=== PATIENT | female | born 1955 | race Caucasian/White ===

== ENCOUNTER 2016-10-31 17:55 | Inpatient (IN) | payer OTHER ==
[~2016-10-31] VITALS: Ht 160 cm; Wt 93.2 kg
[2016-10-31] VITALS (7 sets, daily range): BP systolic 149–179; BP diastolic 83–105; PULSE 92–100; RESP 16–20; TEMP 98.3–98.8; O2SAT 91–94
[2016-10-31] MEDS ORDERED: SODIUM CHLORIDE 0.9% FLUSH 10 ML FLUSH IVF PRN ×2 (18:15→20:30)
[2016-10-31] MEDS ORDERED: SODIUM CHLORID 0.9% 500 ML INJ 500 ML IV ONE (18:15)
[2016-10-31] MEDS ORDERED: CLIN1CAP6 PO (18:17)
[2016-10-31] MEDS ORDERED: HYDR-3516 PO (18:17)
[2016-10-31] MEDS ORDERED: IBUP800T23 PO (18:17)
--- NOTE | 2016-10-31 18:21 | PD ---
HPI Chief Complaint: Respiratory Symptoms Time Seen by Provider: 18:17 Travel History International Travel<30 days: No Contact w/Intl Traveler<30days: No Traveled to known affect area: No History of Present Illness HPI 61-year-old female states that she had a tooth extracted to her left lower teeth 2 days ago. She was on a penicillin antibiotic but when she had shortness of breath they switched her to clindamycin. She states she never had a rash or other symptoms other than sweating. She states now she is having chest tightness and shortness of breath and so she elected to come in. She states that she's never had routine cardiac testing. She denies taking an aspirin. She states she has been taking ibuprofen for her tooth. She denies family history of heart disease. She denies recent travel history. Quality is tightness. Severity is currently none PFSH Past Medical History Medical History: Denies Significant Hx Hx Anticoagulant Therapy: No Diabetes: No Diminished Hearing: No Respiratory: No Tetanus Vaccination: Unknown ?: Not Past Surgical History Surgical History: No Previous Surgery Family History Family Myocardial Infarction: No Social History Alcohol Use: Yes (SOC) Tobacco Use: No (quit Saturday) Substance Use: No Allergies-Medications (Allergen,Severity, Reaction): Coded Allergies: Amoxicillin (Verified Allergy, Severe, 10/31/16) Reported Meds & Prescriptions Reported Meds & Active Scripts Active Reported Hydrocodone-Acetaminophen 5-325 mg Tab 1 Tab PO Q6H PRN Ibuprofen 800 Mg Tab 800 Mg PO Q8H PRN Clindamycin (Clindamycin HCl) 300 Mg Cap 300 Mg PO TID Review of Systems Except as stated in HPI: all other systems reviewed are Neg Physical Exam Narrative GENERAL: Well-nourished, well-developed patient. SKIN: Warm and dry. HEAD: Normocephalic and atraumatic. EYES: No injection or drainage. ENT: No nasal drainage noted. Left lower area of tooth extraction without active bleeding, swelling or signs of infection NECK: Supple, trachea midline. CARDIOVASCULAR: Regular rate and rhythm RESPIRATORY: Breath sounds equal bilaterally. No accessory muscle use. GASTROINTESTINAL: Abdomen soft, non-tender, nondistended. EXTREMITIES: No edema. NEUROLOGICAL: Awake and alert. Motor and sensory grossly within normal limits. Normal speech. Data Data Last Documented VS Vital Signs Date Time Temp Pulse Resp B/P Pulse Ox O2 Delivery O2 Flow Rate FiO2 4/5/17 18:19 16 94 Room Air 10/31/16 18:19 94 162/83 149/92 10/31/16 18:04 98.3 Orders Electrocardiogram (10/31/16 18:11) Ckmb (Isoenzyme) Profile (10/31/16 18:11) Complete Blood Count With Diff (10/31/16 18:11) Comprehensive Metabolic Panel (10/31/16 18:11) Magnesium (Mg) (10/31/16 18:11) Prothrombin Time / Inr (Pt) (10/31/16 18:11) Act Partial Throm Time (Ptt) (10/31/16 18:11) Troponin I (10/31/16 18:11) Lipase (10/31/16 18:11) Chest, Single Ap (10/31/16 18:11) Ecg Monitoring (10/31/16 18:11) Bilateral Bp Monitoring (10/31/16 18:11) Iv Access Insert/Monitor (10/31/16 18:11) Oximetry (10/31/16 18:11) Sodium Chloride 0.9% Flush (Ns Flush) (10/31/16 18:15) Sodium Chlorid 0.9% 500 Ml Inj (Ns 500 M (10/31/16 18:15) Ct Pulmonary Angiogram (10/31/16 18:) Labs Laboratory Tests Test 10/31/16 18:11 White Blood Count 11.5 TH/MM3 Red Blood Count 4.07 MIL/MM3 Hemoglobin 12.3 GM/DL Hematocrit 36.5 % Mean Corpuscular Volume 89.9 FL Mean Corpuscular Hemoglobin 30.3 PG Mean Corpuscular Hemoglobin 33.7 % Concent Red Cell Distribution Width 12.9 % Platelet Count 200 TH/MM3 Mean Platelet Volume 9.2 FL Neutrophils (%) (Auto) 82.4 % Lymphocytes (%) (Auto) 10.2 % Monocytes (%) (Auto) 6.4 % Eosinophils (%) (Auto) 0.5 % Basophils (%) (Auto) 0.5 % Neutrophils # (Auto) 9.4 TH/MM3 Lymphocytes # (Auto) 1.2 TH/MM3 Monocytes # (Auto) 0.7 TH/MM3 Eosinophils # (Auto) 0.1 TH/MM3 Basophils # (Auto) 0.1 TH/MM3 CBC Comment DIFF FINAL Differential Comment Prothrombin Time 10.7 SEC Prothromb Time International 1.0 RATIO Ratio Activated Partial 24.9 SEC Thromboplast Time Sodium Level 136 MEQ/L Potassium Level 3.7 MEQ/L Chloride Level 100 MEQ/L Carbon Dioxide Level 25.8 MEQ/L Anion Gap 10 MEQ/L Blood Urea Nitrogen 18 MG/DL Creatinine 0.94 MG/DL Estimat Glomerular Filtration 60 ML/MIN Rate Random Glucose 123 MG/DL Calcium Level 9.3 MG/DL Magnesium Level 2.0 MG/DL Total Bilirubin 0.4 MG/DL Aspartate Amino Transf 21 U/L (AST/SGOT) Alanine Aminotransferase 32 U/L (ALT/SGPT) Alkaline Phosphatase 86 U/L Total Creatine Kinase 55 U/L Troponin I LESS THAN 0.02 NG/ML Total Protein 7.7 GM/DL Albumin 3.4 GM/DL Lipase 108 U/L MDM Medical Decision Making Medical Screen Exam Complete: Yes Emergency Medical Condition: Yes Medical Record Reviewed: Yes (past history confirmed) Interpretation(s) EKG shows NSR, no ST elevation or depression, and no arrhythmias. No significant T-wave inversions. CBC & BMP Diagram 10/31/16 18:11 Differential Diagnosis NC, PE, gastritis, musculoskeletal Narrative Course Will check blood work, chest x-ray, CT chest and reevaluate Physician Communication Physician Communication dr ramos to follow imaging and reeval Colleen Sarkar MD Oct 31, 2016 18:20
[2016-10-31 18:29] LABS: AUTOMATED NEUTROPHIL # 9.4 TH/MM3 (1.8-7.7); BASOPHIL # 0.1 TH/MM3 (0-0.2); BASOPHIL % 0.5 % (0.0-2.0); EOSINOPHIL # 0.1 TH/MM3 (0-0.4); EOSINOPHIL % 0.5 % (0.0-4.0); HEMATOCRIT 36.5 % (35.0-46.0); HEMO FLAGS DIFF FINAL; LYMPH % 10.2 % (9.0-44.0); LYMPHOCYTE # 1.2 TH/MM3 (1.0-4.8); MEAN CELL VOLUME 89.9 FL (80.0-100.0); MEAN CORPUSCULAR HEMOGLOBIN 30.3 PG (27.0-34.0); MEAN CORPUSCULAR HGB CONC 33.7 % (32.0-36.0); MONO % 6.4 % (0.0-8.0); NEUT % 82.4 % (16.0-70.0); PLATELET COUNT 200 TH/MM3 (150-450); RED BLOOD COUNT 4.07 MIL/MM3 (4.00-5.30); RED CELL DISTRIBUTION WIDTH 12.9 % (11.6-17.2); WHITE BLOOD COUNT 11.5 TH/MM3 (4.0-11.0)
[2016-10-31 18:36] LABS: CHLORIDE 100 MEQ/L (98-107); POTASSIUM 3.7 MEQ/L (3.5-5.1); SODIUM (NA) 136 MEQ/L (136-145)
[2016-10-31 18:40] LABS: ANION GAP 10 MEQ/L (5-15); APTT (PATIENT) 24.9 SEC (24.3-30.1); BICARBONATE 25.8 MEQ/L (21.0-32.0); PROTHROMBIN TIME - PATIENT 10.7 SEC (9.8-11.6)
[2016-10-31 18:41] LABS: BLOOD UREA NITROGEN 18 MG/DL (7-18)
[2016-10-31 18:43] LABS: ALT (GPT) 32 U/L (10-53); AST (GOT) 21 U/L (15-37); GLOMERULAR FILTRATION RATE 60 ML/MIN (>89)
[2016-10-31 18:45] LABS: TOTAL BILIRUBIN ADULT 0.4 MG/DL (0.2-1.0)
[2016-10-31 18:46] LABS: ALKALINE PHOSPHATASE 86 U/L (45-117)
[2016-10-31 18:49] LABS: CREATINE KINASE 55 U/L (26-192)
--- NOTE | 2016-10-31 18:55 | RADHPO ---
EXAM DATE/TIME: 10/31/2016 18:23 [facility] COMPARISON: No previous studies available for comparison. INDICATIONS : Chest pain. MEDICAL HISTORY : None. SURGICAL HISTORY : None. ENCOUNTER: Initial ACUITY: 1 day PAIN SCORE: 5/10 LOCATION: Bilateral chest FINDINGS: There is a focal area of consolidation in the left hilar region. CT is pending for further evaluation . Right lung is clear. No significant effusion identified on plain film. No pneumothorax. Heart size upper limits normal. CONCLUSION: 1. Abnormal left perihilar opacity, possibly consolidation or mass. CT is pending for further evaluat ion. Nahid Caban MD on October 31, 2016 at 18:53 Board Certified Radiologist. This report was verified electronically.
[2016-10-31] MEDS ORDERED: IOHEXOL 350 MG/ML 10 ML VIAL (for RAD DIAG) IV ONE (19:12)
--- NOTE | 2016-10-31 19:29 | RADHPO ---
EXAM DATE/TIME: 10/31/2016 18:54 [facility] COMPARISON: No previous studies available for comparison. INDICATIONS : Shortness of breath. IV CONTRAST: 75 cc Omnipaque 350 (iohexol) IV RADIATION DOSE: 21.04 CTDIvol (mGy) MEDICAL HISTORY : None SURGICAL HISTORY : None. ENCOUNTER: Initial ACUITY: 1 day PAIN SCALE: 0/10 LOCATION: chest TECHNIQUE: Volumetric scanning of the chest was performed using a pulmonary embolism protocol MIP images were re constructed. Using automated exposure control and adjustment of the mA and/or kV according to patien t size, radiation dose was kept as low as reasonably achievable to obtain optimal diagnostic quality images. FINDINGS: There is an irregular lobulated and slightly spiculated mass in the left upper lobe apicoposterior se gment measuring 4.1 cm in diameter. There is contiguous left hilar and mediastinal adenopathy with a 2.9 cm anterior left hilar lymph node and a 2.5 cm prevascular lymph node. There is also a 2.5 cm sub carinal lymph node and a contralateral 1.8 cm lymph node at the inferior right hilum. There is a mode rate sized pericardial effusion measuring up to 2.1 cm in thickness. The findings are most characteristic of a primary lung malignancy, at least stage IIIB. There is patc hy airspace disease in the remainder of the left lung with some interlobular septal thickening which could represent localized lymphangitic spread of tumor. There is some ground glass opacity right midd le lobe as well. Trace bilateral pleural effusions. No acute findings in the upper abdomen. No filling defects in the pulmonary arteries to suggest pulmonary embolus. Probable sebaceous cyst an terior right chest wall. CONCLUSION: 1. Negative for pulmonary embolus. 2. 4.1 cm mass apicoposterior segment left upper lobe with extensive mediastinal and hilar adenopathy including contralateral hilar adenopathy as well as a moderate-sized pericardial effusion. Finding m ost characteristic of a primary lung malignancy, probably at least stage IIIB. Small bilateral pleura l effusions. Nahid Caban MD on October 31, 2016 at 19:21 Board Certified Radiologist. This report was verified electronically.
--- NOTE | 2016-10-31 20:12 | PD ---
Physical Exam Date Seen by Provider: Oct 31, 2016 Time Seen by Provider: 20:08 Narrative Accepted in transfer of care from Dr. Sarkar Data Data Last Documented VS Vital Signs Date Time Temp Pulse Resp B/P Pulse Ox O2 Delivery O2 Flow Rate FiO2 10/31/16 19:20 18 94 Room Air 10/31/16 19:20 98.8 92 165/105 Orders Electrocardiogram (10/31/16 18:11) Ckmb (Isoenzyme) Profile (10/31/16 18:11) Complete Blood Count With Diff (10/31/16 18:11) Comprehensive Metabolic Panel (10/31/16 18:11) Magnesium (Mg) (10/31/16 18:11) Prothrombin Time / Inr (Pt) (10/31/16 18:11) Act Partial Throm Time (Ptt) (10/31/16 18:11) Troponin I (10/31/16 18:11) Lipase (10/31/16 18:11) Chest, Single Ap (10/31/16 18:11) Ecg Monitoring (10/31/16 18:11) Bilateral Bp Monitoring (10/31/16 18:11) Iv Access Insert/Monitor (10/31/16 18:11) Oximetry (10/31/16 18:11) Sodium Chloride 0.9% Flush (Ns Flush) (10/31/16 18:15) Sodium Chlorid 0.9% 500 Ml Inj (Ns 500 M (10/31/16 18:15) Ct Pulmonary Angiogram (10/31/16 18:11) Iohexol 350 Inj (Omnipaque 350 Inj) (10/31/16 19:12) Vital Signs (Adult) CHAN.Q4H (10/31/16 20:16) Resp Oxygen Oliver C Titrat 1-4 L (10/31/16 ) Ondansetron Inj (Zofran Inj) (10/31/16 20:30) Acetaminophen (Tylenol) (10/31/16 20:30) Consult Pulmonology (10/31/16 ) Echo 2d Comp W/Dopp(Routine) (10/31/16 ) Consult Cardiothoracic Surgery (10/31/16 ) Admit Order (Ed Use Only) (10/31/16 ) ^ Saline Lock (10/31/16 20:21) Resp Oxygen Oliver C Titrat 1-4 L (10/31/16 ) ^ Notify Dr: Other (10/31/16 20:21) Sodium Chloride 0.9% Flush (Ns Flush) (10/31/16 21:00) Sodium Chloride 0.9% Flush (Ns Flush) (10/31/16 20:30) Albuterol-Ipratropium Neb (Duoneb Neb) (10/31/16 20:45) Labs Laboratory Tests Test 10/31/16 18:11 White Blood Count 11.5 TH/MM3 Red Blood Count 4.07 MIL/MM3 Hemoglobin 12.3 GM/DL Hematocrit 36.5 % Mean Corpuscular Volume 89.9 FL Mean Corpuscular Hemoglobin 30.3 PG Mean Corpuscular Hemoglobin 33.7 % Concent Red Cell Distribution Width 12.9 % Platelet Count 200 TH/MM3 Mean Platelet Volume 9.2 FL Neutrophils (%) (Auto) 82.4 % Lymphocytes (%) (Auto) 10.2 % Monocytes (%) (Auto) 6.4 % Eosinophils (%) (Auto) 0.5 % Basophils (%) (Auto) 0.5 % Neutrophils # (Auto) 9.4 TH/MM3 Lymphocytes # (Auto) 1.2 TH/MM3 Monocytes # (Auto) 0.7 TH/MM3 Eosinophils # (Auto) 0.1 TH/MM3 Basophils # (Auto) 0.1 TH/MM3 CBC Comment DIFF FINAL Differential Comment Prothrombin Time 10.7 SEC Prothromb Time International 1.0 RATIO Ratio Activated Partial 24.9 SEC Thromboplast Time Sodium Level 136 MEQ/L Potassium Level 3.7 MEQ/L Chloride Level 100 MEQ/L Carbon Dioxide Level 25.8 MEQ/L Anion Gap 10 MEQ/L Blood Urea Nitrogen 18 MG/DL Creatinine 0.94 MG/DL Estimat Glomerular Filtration 60 ML/MIN Rate Random Glucose 123 MG/DL Calcium Level 9.3 MG/DL Magnesium Level 2.0 MG/DL Total Bilirubin 0.4 MG/DL Aspartate Amino Transf 21 U/L (AST/SGOT) Alanine Aminotransferase 32 U/L (ALT/SGPT) Alkaline Phosphatase 86 U/L Total Creatine Kinase 55 U/L Troponin I LESS THAN 0.02 NG/ML Total Protein 7.7 GM/DL Albumin 3.4 GM/DL Lipase 108 U/L [facility] Medical Record Reviewed: Yes Supervised Visit with CONNIE: No Interpretation(s) CBC & BMP Diagram 10/31/16 18:11 Vital Signs Date Time Temp Pulse Resp B/P Pulse Ox O2 Delivery O2 Flow Rate FiO2 10/31/16 18:19 16 94 Room Air 10/31/16 18:19 94 16 162/83 94 Room Air 149/92 10/31/16 18:12 16 93 Room Air 10/31/16 18:04 98.3 100 18 179/101 94 Last Impressions Chest X-Ray 10/31/161810 Signed Impressions: Service Date/Time: Monday, October 31, 2016 18:23 - CONCLUSION: 1. Abnormal left perihilar opacity, possibly consolidation or mass. CT is pending for further evaluation. Nahid Caban MD CT Angiography 10/31/161810 Signed Impressions: Service Date/Time: Monday, October 31, 2016 18:54 - CONCLUSION: 1. Negative for pulmonary embolus. 2. 4.1 cm mass apicoposterior segment left upper lobe with extensive mediastinal and hilar adenopathy including contralateral hilar adenopathy as well as a moderate-sized pericardial effusion. Finding most characteristic of a primary lung malignancy, probably at least stage IIIB. Small bilateral pleural effusions. Nahid Caban MD Troponin I: Less than 0.02, not elevated EKG normal sinus rhythm rate [address] elevation or injury pattern change or ectopy noted Differential Diagnosis please refer to Dr Sarkar's dictation; Accepted in transfer of care from Dr. Sarkar Narrative Course Accepted in transfer of care from Dr. Sarkar for patient admission; patient with at bedside informed of imaging results and recommendation for admission for further evaluation of lung mass with concern for mediastinal lymphadenopathy and moderate pericardial effusion Physician Communication Physician Communication discussed with Dr Saenz --will admit to [facility] service to [facility] Diagnosis Primary Impression: Dyspnea Qualified Code: R06.02 - Shortness of breath Additional Impressions: Lung mass Pericardial effusion Admitting Information Admitting Physician Requests: Admit Mirela Lr MD Oct 31, 2016 20:11
[2016-10-31] MEDS ORDERED: RESP: ALBUTEROL 2.5 MG/IPRATROPIUM 0.5 MG NEB (PRN) NEB (20:45)
[2016-10-31] MEDS: ACETAMINOPHEN 325 MG TAB PO PRN (21:12)
[2016-10-31] MEDS: SODIUM CHLORIDE 0.9% FLUSH 10 ML FLUSH IV FLUSH SCH (21:13)
[2016-11-01] VITALS (14 sets, daily range): BP systolic 103–161; BP diastolic 60–94; PULSE 80–96; RESP 16–22; TEMP 96.2–98.2; O2SAT 90–94
[2016-11-01] MEDS: ACETAMINOPHEN 325 MG TAB PO PRN ×5 (03:18→23:12)
--- NOTE | 2016-11-01 04:01 | HHI.HP ---
[facility] Service [facility] Primary Care Physician No Primary Care Physician Admission Diagnosis Dyspnea; Lung Mass; pericardial effusion Diagnoses: (1) Lung mass (2) Pericardial effusion (3) Dyspnea (4) Tobacco abuse Chief Complaint: Shortness of breath Travel History International Travel<30 Days: No Contact w/Intl Traveler <30 Da: No Traveled to Known Affected Are: No History of Present Illness Mrs. Webster is a 61-year-old female with no significant past medical history who presented to the emergency room on 10/31/2016 for evaluation of worsening shortness of breath. The patient is seen in the CDU. She states that she is had progressively worsening shortness of breath and thought this was related to an allergic reaction to amoxicillin that she cannot on Saturday following tooth extraction. In August, she thought she had an ear infection; got amoxicillin and it didn' t clear; then zpak and didn't clear; then dentist; tooth pulled Saturday - back on Amoxicillin. She denies any night sweats, chills, fever, or weight loss. She denies any family history of significant illness. She reports that her shortness of breath is worsened with exertion. She states she's been smoking for many years 2 packs per day. She states she quit smoking on Saturday. Review of Systems Except as stated in HPI: all other systems reviewed are Neg Past Family Social History Past Medical History denies . Past Surgical History denies . Reported Medications Reported Meds & Active Scripts Active Reported Hydrocodone-Acetaminophen 5-325 mg Tab 1 Tab PO Q6H PRN Ibuprofen 800 Mg Tab 800 Mg PO Q8H PRN Clindamycin (Clindamycin HCl) 300 Mg Cap 300 Mg PO TID . Allergies: Coded Allergies: Amoxicillin (Verified Allergy, Severe, 10/31/16) Active Ordered Medications Current Medications Sodium Chloride 2 ml 2 ml UNSCH PRN IVF FLUSH AFTER USING IV ACCESS; Start 10/31 at 18:15; Stop 10/31/16 at 20:31; Status DC Sodium Chloride (NS 500 ml Inj) 500 ml @ 500 mls/hr ONCE ONCE IV Last administered on 10/31/16t 18:26; Start 10/31/16 at 18:15; Stop 10/31/16 at 19:14; Status DC Iohexol (Omnipaque 350 Inj) 75 ml STK-MED ONCE IV Last administered on 19:12; Start 10/31/16 at 19:12; Stop 10/31/16 at 19:13; Status DC Ondansetron HCl (Zofran Inj) 4 mg Q8HR PRN IV PUSH NAUSEA; Start 10/31/16 at 20: 30 Acetaminophen (Tylenol) 650 mg Q4H PRN PO FEVER/PAIN Last administered on 03:18; Start 10/31/16 at 20:30 Albuterol/ Ipratropium (Duoneb Neb) 1 ampule Q4HR NEB PRN NEB SHORTNESS OF BREATH; Start 10/31/16 at 20:45 Sodium Chloride (NS Flush) 2 ml BID IV FLUSH Last administered on 10/31/16 21: 13; Start 10/31/16 at 21:00 Sodium Chloride (NS Flush) 2 ml UNSCH PRN IVF FLUSH AFTER USING IV ACCESS; Start 10/31/16 at 20:30 . Family History denies any significant family medical history . Social History Tobacco: smokes 2 ppd for many years - quit Saturday Alcohol: social . Physical Exam Vital Signs Vital Signs Date Time Temp Pulse Resp B/P Pulse Ox O2 Delivery O2 Flow Rate FiO2 11/01/16 00:00 98.2 96 20 135/85 91 10/31/16 22:38 98.7 92 18 164/84 94 Room Air 10/31/16 21:15 93 Room Air 10/31/16 21:09 91 Nasal Cannula 2 10/31/16 21:00 92 20 161/88 93 Room Air 10/31/16 19:20 18 94 Room Air 10/31/16 19:20 98.8 92 18 165/105 94 Room Air 10/31/16 18:19 16 94 Room Air 10/31/16 18:19 94 16 162/83 94 Room Air 149/92 10/31/16 18:12 16 93 Room Air 10/31/16 18:04 98.3 100 18 179/101 94 Physical Exam GENERAL: This is a well-nourished, well-developed patient, in no apparent distress. SKIN: No rashes, ecchymoses or lesions. Cool and dry. HEAD: Atraumatic. Normocephalic. EYES: No scleral icterus. No injection or drainage. ENT: Nose without bleeding, purulent drainage. NECK: Trachea midline. No JVD or lymphadenopathy. CARDIOVASCULAR: Regular rate and rhythm without murmurs, gallops, or rubs. RESPIRATORY: Diminished air entry- right lung base. No wheezes, rales, or rhonchi. GASTROINTESTINAL: Abdomen soft, non-tender, nondistended. No guarding. MUSCULOSKELETAL: Extremities without clubbing, cyanosis, or edema. No calf tenderness. NEUROLOGICAL: Awake and alert. Motor and sensory grossly within normal limits. Normal speech. . Laboratory Laboratory Tests Test 10/31/16 18:11 White Blood Count 11.5 Red Blood Count 4.07 Hemoglobin 12.3 Hematocrit 36.5 Mean Corpuscular Volume 89.9 Mean Corpuscular Hemoglobin 30.3 Mean Corpuscular Hemoglobin 33.7 Concent Red Cell Distribution Width 12.9 Platelet Count 200 Mean Platelet Volume 9.2 Neutrophils (%) (Auto) 82.4 Lymphocytes (%) (Auto) 10.2 Monocytes (%) (Auto) 6.4 Eosinophils (%) (Auto) 0.5 Basophils (%) (Auto) 0.5 Neutrophils # (Auto) 9.4 Lymphocytes # (Auto) 1.2 Monocytes # (Auto) 0.7 Eosinophils # (Auto) 0.1 Basophils # (Auto) 0.1 CBC Comment DIFF FINAL Differential Comment Prothrombin Time 10.7 Prothromb Time International 1.0 Ratio Activated Partial 24.9 Thromboplast Time Sodium Level 136 Potassium Level 3.7 Chloride Level 100 Carbon Dioxide Level 25.8 Anion Gap 10 Blood Urea Nitrogen 18 Creatinine 0.94 Estimat Glomerular Filtration 60 Rate Random Glucose 123 Calcium Level 9.3 Magnesium Level 2.0 Total Bilirubin 0.4 Aspartate Amino Transf 21 (AST/SGOT) Alanine Aminotransferase 32 (ALT/SGPT) Alkaline Phosphatase 86 Total Creatine Kinase 55 Troponin I LESS THAN 0.02 Total Protein 7.7 Albumin 3.4 Lipase 108 Result Diagram: 10/31/16181010/31/161810 Imaging Last Impressions Chest X-Ray 10/31/161810 Signed Impressions: Service Date/Time: Monday, October 31, 2016 18:23 - CONCLUSION: 1. Abnormal left perihilar opacity, possibly consolidation or mass. CT is pending for further evaluation. Nahid Caban MD CT Angiography 10/31/161810 Signed Impressions: Service Date/Time: Monday, October 31, 2016 18:54 - CONCLUSION: 1. Negative for pulmonary embolus. 2. 4.1 cm mass apicoposterior segment left upper lobe with extensive mediastinal and hilar adenopathy including contralateral hilar adenopathy as well as a moderate-sized pericardial effusion. Finding most characteristic of a primary lung malignancy, probably at least stage IIIB. Small bilateral pleural effusions. Nahid Caban MD . Assessment and Plan Problem List: (1) Lung mass ICD Code: R91.8 Status: Acute (2) Pericardial effusion ICD Code: I31.3 Status: Acute (3) Dyspnea ICD Code: R06.00 Status: Acute (4) Tobacco abuse ICD Code: Z72.0 Status: Chronic Assessment and Plan Ms. Webster is a 61 y/o female who presented to the ER on 10/31/16 for evaluation of shortness of breath who was found to have a left lung mass and pericardial effusion. Dyspnea r/t Lung Mass - CT pulmonary angiogram negative for PE shows 4.1 cm mass apicoposterior segment left upper lobe with extensive mediastinal and hilar adenopathy including contralateral hilar adenopathy. Small bilateral pleural effusions. - consult pulmonology/oncology - will need tissue diagnosis - Duonebs q4h PRN shortness of breath Pericardial Effusion - found on CT pulmonary angiogram: moderate-sized pericardial effusion - check echocardiogram to evaluate cardiac structure and function - consult cardiothoracic surgery for treatment recommendations Anxiety related to findings of lung mass - Xanax 0.25 mg q8h PRN anxiety Long history of tobacco abuse - patient states she quit smoking on Saturday - counselled regarding cessation - offered nicotine patch - patient refused DVT prophylaxis - SCDs Written by Karena Malcolm, acting as scribe for Dr. Abbasi on 11/01/16 at 04:00. .patient was seen and examined today. 61 y/o female - chronic smoker - who presented to ER with sob. found to have a lung mass and moderate-sized pericardial effusion. will consult pulmonary, oncology and CT surgery for further recommendations. Discussed Condition With ER physician, RN, and patient . Physician Certification 2 Midnight Certification Type: Admission for Inpatient Services Order for Inpatient Services The services are ordered in accordance with Medicare regulations or non- Medicare payer requirements, as applicable. In the case of services not specified as inpatient-only, they are appropriately provided as inpatient services in accordance with the 2-midnight benchmark. Estimated LOS (days): 3 days is the estimated time the patient will need to remain in the hospital, assuming treatment plan goals are met and no additional complications. Post-Hospital Plan: Home Problem Qualifiers (1) Dyspnea: Qualified Code: R06.02 - Shortness of breath Karena Malcolm Nov 01, 2016 04:01 Barbi Abbasi MD Nov 01, 2016 05:01
[2016-11-01] MEDS: ALPRAZolam 0.25 MG TAB PO PRN ×3 (04:15→19:47)
--- NOTE | 2016-11-01 07:49 | HHI.PR ---
Subjective Remarks Breathing is not worse overnight. No complaints of chest pain or shortness of breath. She states that she has left lower jaw pain due to a tooth that was pulled by her dentist 3 days ago. She was placed on clindamycin and taking Tylenol for the pain. She does smoke 2 packs of cigarettes over the past 40 years Objective Vitals Vital Signs Date Time Temp Pulse Resp B/P Pulse Ox O2 Delivery O2 Flow Rate FiO2 11/01/16 04:25 20 11/01/16 04:00 98.0 94 20 161/94 93 11/01/16 00:00 98.2 96 20 135/85 91 10/31/16 22:38 98.7 92 18 164/84 94 Room Air 10/31/16 21:15 93 Room Air 10/31/16 21:09 91 Nasal Cannula 2 10/31/16 21:00 92 20 161/88 93 Room Air 10/31/16 19:20 18 94 Room Air 10/31/16 19:20 98.8 92 18 165/105 94 Room Air 10/31/16 18:19 16 94 Room Air 10/31/16 18:19 94 16 162/83 94 Room Air 149/92 10/31/16 18:12 16 93 Room Air 10/31/16 18:04 98.3 100 18 179/101 94 I/O 10/31/16 10/31/16 10/31/16 11/01/16 11/01/16 11/01/16 07:00 15:00 23:00 07:00 15:00 23:00 Intake Total 500 ml Balance 500 ml Intake IV Total 500 ml # Voids 2 1 Result Diagram: 10/31/16 1811 10/31/16 1811 Objective Remarks GENERAL: This is a well-nourished, well-developed patient, in no apparent distress. CARDIOVASCULAR: Regular rate and rhythm RESPIRATORY: Relatively clear to auscultation bilaterally with mildly diminished breath sounds bilateral bases GASTROINTESTINAL: Abdomen soft, non-tender,nondistended. Normal active bowel sounds MUSCULOSKELETAL: Extremities without clubbing, cyanosis, or edema. NEURO: Alert & Oriented x4 to person, place, time, situation. Moves all ext x4 A/P Problem List: (1) Lung mass ICD Code: R91.8 Status: Acute (2) Pericardial effusion ICD Code: I31.3 Status: Acute (3) Dyspnea ICD Code: R06.00 Status: Acute (4) Tobacco abuse ICD Code: Z72.0 Status: Chronic Assessment and Plan 61 y/o female who presented to the ER on 10/31/16 for evaluation of shortness of breath who was found to have a left lung mass and pericardial effusion. Dyspnea with left Lung Mass suspicious for malignancy - CT pulmonary angiogram negative for PE shows 4.1 cm mass apicoposterior segment left upper lobe with extensive mediastinal and hilar adenopathy including contralateral hilar adenopathy. Small bilateral pleural effusions. - consult pulmonology/oncology for further recommendations- will need tissue diagnosis, consider consult for CT-guided biopsy of the mass - Duonebs q4h PRN shortness of breath Oxygen support for hypoxia, 2 L via nasal cannula Pericardial Effusion - found on CT pulmonary angiogram: moderate-sized pericardial effusion likely due to malignancy - check echocardiogram to evaluate cardiac structure and function - consult cardiothoracic surgery for treatment recommendations Anxiety related to findings of lung mass - Started Xanax 0.25 mg q8h PRN anxiety Long history of tobacco abuse, smoked 2 packs of cigars her past 40 years - patient states she quit smoking on Saturday - counselled regarding cessation - offered nicotine patch - patient declined Recent tooth extractioncontinue pain medication continue outpatient home clindamycin prescribed by dentist DVT prophylaxis - SCDs, will initiate Lovenox after biopsy. .patient was seen and examined today. 61 y/o female - chronic smoker - who presented to ER with sob. found to have a lung mass and moderate-sized pericardial effusion. will consult pulmonary, oncology and CT surgery for further recommendations. Discharge Planning Home when clinically stable. Problem Qualifiers (1) Dyspnea: Qualified Code: R06.02 - Shortness of breath Christine Estrada MD Nov 01, 2016 07:49
[2016-11-01] MEDS ORDERED: DOCUSATE SODIUM 50 MG/SENNA 8.6 MG TAB PO PRN (08:00)
[2016-11-01] MEDS ORDERED: ACETAMINOPHEN/HYDROcodone 325 MG/5 MG TAB PO PRN (08:00)
[2016-11-01] MEDS ORDERED: ZOLPIDEM TARTRATE 5 MG TAB PO PRN (08:00)
[2016-11-01] MEDS ORDERED: NALOXONE HCL 0.4 MG/ML AMP IV PRN (08:00)
[2016-11-01] MEDS ORDERED: ACETAMINOPHEN 325 MG TAB PO PRN (08:00)
[2016-11-01] MEDS ORDERED: ACETAMINOPHEN/HYDROcodone 325 MG/7.5 MG TAB PO PRN (08:00)
[2016-11-01] MEDS ORDERED: MAGNESIUM HYDROXIDE SUSP 30 ML CUP PO PRN (08:00)
[2016-11-01] MEDS: SODIUM CHLORIDE 0.9% FLUSH 10 ML FLUSH IV FLUSH SCH ×2 (08:22→19:55)
[2016-11-01] MEDS: CLINDAMYCIN 150 MG CAP PO SCH ×3 (08:22→19:48)
--- NOTE | 2016-11-01 13:01 | EKG ---
Date Performed: 10/31/2016 Time Performed: 17:58:22 PTAGE: 61 years EKG: Sinus rhythm Normal ECG NO PREVIOUS TRACING DOCTOR: Agustín Patel Interpretating Date/Time 11/01/2016 12:59:45
[2016-11-01] MEDS ORDERED: LIDOCAINE 1%/EPINEPHrine 1:100,000 SOLN 20 ML VIAL ONE (13:08)
[2016-11-01] MEDS ORDERED: MIDAZOLAM HCL 5 MG/5 ML VIAL ONE (13:53)
[2016-11-01] MEDS ORDERED: fentaNYL CITRATE 250 MCG/5 ML AMP ONE (13:54)
[2016-11-01] MEDS ORDERED: oxyCODONE/ACETAMINOPHEN 5 MG/325 MG TAB PO PRN (14:30)
--- NOTE | 2016-11-01 14:36 | PD.RAD ---
Post Procedure Progress Note Pre Procedure Diagnosis: (1) Lung mass Post Procedure Diagnosis: (1) Lung mass Procedure Date: Nov 01, 2016 Supervising Radiologist: Clint Ojeda Anesthesia: Local, Conscious Sedation Plan of Activity Patient to Unit: [facility] Patient Condition: Good Additional Comments: Pt post left lung biopsy 3 core samples taken Follow up cxr pending See PACS Report for procedural detail/treatment Clint Ojeda MD Nov 01, 2016 14:36
--- NOTE | 2016-11-01 15:56 | RADRPT ---
EXAM DATE/TIME: 11/01/2016 13:59 [facility] COMPARISON: CT PULMONARY ANGIOGRAM, October 31, 2016, 18:54. INDICATIONS : Left lung mass. SEDATION TIME: 30 minutes BIOPSY SITE: Left Lung MEDICATION(S): 1.) 4 mg midazolam (Versed) IV 2.) 200 mcg fentanyl (Sublimaze) IV DEVICE(S): 1.) 20 gauge Temno core biopsy needle 2.) 18 gauge Seth blunt needle MEDICAL HISTORY : None. SURGICAL HISTORY : None. ENCOUNTER: Initial ACUITY: 1 day PAIN SCORE: 0/10 LOCATION: Left chest A total of three core specimen(s) were obtained and sent to the laboratory for pathologic evaluation. PROCEDURE: 1. CT guided lung biopsy. 2. Conscious sedation with continuous EKG and oximetry monitoring. 3. EKG and oximetry remained stable throughout the procedure. Prior to the procedure informed consent was obtained. Any appropriate prior imaging studies were rev iewed. Using automated exposure control and adjustment of the mA and/or kV according to patient size, radiation dose was kept as low as reasonably achievable to obtain optimal diagnostic quality images. The site was prepped in a sterile fashion. Full sterile technique was used, including cap, mask, ayaka rile gloves and gown and a large sterile sheet. Hand hygiene and 2% chlorhexidine and/or betadine/al cohol prep was utilized per protocol for cutaneous antisepsis. The skin and subcutaneous tissues wer e infiltrated with local anesthetic solution. With CT guidance the previously identified target was localized. After the needle was advanced to the skin of the back and down into the patient's left upper lung mass. A 20 gauge Temno biopsy needle wa s advanced through the Seth cannula. A total of 3 core biopsies were obtained. Adequate hemostasis was obtained with compression at the puncture site. Follow-up CT scan reveals no pneumothorax. Conscious sedation was performed with the prescribed dosages and duration as above in the presence of an independent trained radiology nurse to assist in the monitoring of the patient. EKG and oximetry remained stable throughout the procedure. The patient tolerated the procedure well and there were no complications. The patient was sent to Radiology Outpatient Unit in stable condition. CONCLUSION: Uncomplicated CT guided biopsy. Clint Ojeda MD on November 01, 2016 at 15:54 Board Certified Radiologist. This report was verified electronically.
--- NOTE | 2016-11-01 18:53 | RADRPT ---
EXAM DATE/TIME: 11/01/2016 18:11 [facility] COMPARISON: CT PULMONARY ANGIOGRAM, October 31, 2016, 18:54. CHEST SINGLE AP, October 31, 2016, 18:23. INDICATIONS : Shortness of breath. MEDICAL HISTORY : None. SURGICAL HISTORY : None. ENCOUNTER: Subsequent ACUITY: 3 days PAIN SCORE: 5/10 LOCATION: Bilateral chest FINDINGS: There is fullness of the left suprahilar area with prominence of the mediastinum corresponding to kno wn mass and adenopathy seen on the patient's prior chest CT. There is no appreciable change. CONCLUSION: No acute process and not changed. Austen Montenegro MD on November 01, 2016 at 18:49 Board Certified Radiologist. This report was verified electronically.
--- NOTE | 2016-11-01 19:01 | EC ---
Study Study Date:11/01/2016 STUDY CONCLUSIONS SUMMARY - Left ventricle: The cavity size was normal. Wall thickness was at the upper limits of normal. Systolic function was normal. The estimated ejection fraction was in the range of 55% to 60%. Wall motion was normal; there were no regional wall motion abnormalities. Doppler parameters are consistent with abnormal left ventricular relaxation (grade 1 diastolic dysfunction). - Pericardium, extracardiac: A moderate, partially loculated pericardial effusion was identified circumferential to the heart. There wasmildright atrial and possible right ventricularchamber collapse. Respirophasic change in stroke volume was normal. The possibility of hemodynamic compromise cannot be excluded based on the possible right sided chamber collapse (pre-tamponade physiology). Clinical correlation is recommended. If LV function is below 40, please consider prescribing an ACEI or ARB or document rationale for non-use. PROCEDURE DATA STUDY STATUS: Elective. Procedure: Transthoracic echocardiography. Image quality was good. Scanning was performed from the parasternal, apical, and subcostal acoustic windows. Study completion: The patient tolerated the procedure well. Transthoracic echocardiography. M-mode, complete 2D, complete spectral Doppler, and color Doppler. Height: Height: 63in. Weight: Weight: 199.6lb. Body mass index: BMI: 35.4kg/m^2. Body surface area: BSA: 1.93m^2. Patient status: Inpatient. CARDIAC ANATOMY LEFT VENTRICLE: The cavity size was normal. Wall thickness was at the upper limits of normal. Systolic function was normal. The estimated ejection fraction was in the range of 55% to 60%. Wall motion was normal; there were no regional wall motion abnormalities. Doppler parameters are consistent with abnormal left ventricular relaxation (grade 1 diastolic dysfunction). AORTIC VALVE: Trileaflet; normal thickness leaflets. Doppler: Transvalvular velocity was within the normal range. There was no stenosis. No regurgitation. AORTA: Aortic root: The aortic root was normal in size. MITRAL VALVE: Structurally normal valve. Doppler: Transvalvular velocity was within the normal range. There was no evidence for stenosis. Trace to mild regurgitation. Valve area by pressure half-time: 4.07cm^2. Indexed valve area by pressure half-time: 2.11cm^2/m^2. LEFT ATRIUM: The atrium was normal in size. RIGHT VENTRICLE: The cavity size was normal. Wall thickness was normal. PULMONIC VALVE: Doppler: Transvalvular velocity was within the normal range. There was no evidence for stenosis. No regurgitation. TRICUSPID VALVE: Structurally normal valve. Doppler: Transvalvular velocity was within the normal range. Trace to mild regurgitation. PULMONARY ARTERY: The main pulmonary artery was normal-sized. Systolic pressure was within the normal range. RIGHT ATRIUM: The atrium was normal in size. PERICARDIUM: A moderate, partially loculated pericardial effusion was identified circumferential to the heart. Doppler: There was mild right atrial and possible right ventricular chamber collapse. Respirophasic change in stroke volume was normal. The possibility of hemodynamic compromise cannot be excluded based on the possible right sided chamber collapse (pre-tamponade physiology). Clinical correlation is recommended. SYSTEMIC VEINS: Inferior vena cava: The vessel was mildly dilated; the respirophasic diameter changes were in the normal range (= 50%). Patient weight: 199.6lb _Ejection fraction:_ 65-75% _Fractional shortening:_ 32% up to 5Kg 5-11.5Kg 11.6-22.9Kg 23-45Kg 45-57Kg Aortic Root 7-13 <17 13-22 17-27 17-27 LA diam 6-13 <23 24-38 33-47 37-40 RVID 10-17 7-15 7-15 7-18 8-17 LVIDd 12-22 <32 24-38 33-47 37-40 LVPW 2-4 3-6 5-7 6-8 7-8 IVS 2-4 3-6 5-7 6-8 7-8 BASIC MEASUREMENTS ADULT NORMAL Left ventricle LV internal dimension, ED, chordal *38.7 mm 43-52 level, PLAX LV internal dimension, ES, chordal 24.8 mm 23-38 level, PLAX Fractional shortening, chordal level, 36 % >29 PLAX LV posterior wall thickness, ED 12.1 mm IVS/LVPW ratio, ED 1.01 <1.3 Ventricular septum Septal thickness, ED 12.2 mm Left atrium Anterior-posterior dimension 31 mm Anterior-posterior dimension index 1.61 cm/m^2 <2.2 Right ventricle RV internal dimension, ED, PLAX 21.8 mm 19-38 DOPPLER MEASUREMENTS ADULT NORMAL Main pulmonary artery Pressure, S 27 mm Hg =30 Aortic valve Peak velocity, S 115 cm/s Mitral valve Peak E-wave velocity 57.3 cm/s Peak A-wave velocity 73.5 cm/s Pressure half-time 54 ms Peak E/A ratio 0.8 Valve area, pressure half-time 4.07 cm^2 Valve area index, pressure half-time 2.11 cm^2/m^2 Tricuspid valve Regurgitant peak velocity 227 cm/s Peak RV-RA gradient, S 21 mm Hg Maximal regurgitant velocity 227 cm/s Systemic veins Estimated CVP 10 mm Hg Right ventricle RV pressure, S *31 mm Hg <30 Pulmonic valve Peak velocity, S 100 cm/s LEGEND: Mean values are shown as u=mean value. Asterisk (*) riggs values outside specified normal range. Prepared and signed by Robin Horner [id number]
[2016-11-01] MEDS ORDERED: DIATRIZOATE MEGLUM/DIATRIZOATE SOD 9 ML CUP PO ONE (19:45)
[2016-11-01] MEDS ORDERED: GADODIAMIDE PF 287 MG/ML 5 ML VIAL (for RAD MRI) IV ONE (22:11)
[2016-11-01] MEDS ORDERED: IOHEXOL 350 MG/ML 10 ML VIAL (for RAD DIAG) IV ONE (22:36)
--- NOTE | 2016-11-01 22:40 | RADRPT ---
EXAM DATE/TIME: 11/01/2016 22:01 [facility] COMPARISON: No previous studies available for comparison. INDICATIONS : Metastatic disease. CONTRAST: 18 cc Omniscan (gadodiamide) IV MEDICAL HISTORY : Carcinoma, lung. SURGICAL HISTORY : Left lung biopsy. Dental. ENCOUNTER: Subsequent ACUITY: 2 day PAIN SCORE: 3/10 LOCATION: cranial TECHNIQUE: Multiplanar, multisequence MRI of the brain was performed both prior to and following the administrat ion of paramagnetic contrast. FINDINGS: There is no evidence for intracranial hemorrhage, mass effect, mass lesions, edema, or extra-axial fl uid collections. The ventricles are normal size for the patient's age. There are no signs of acute infarction for technique. The diffusion portion, and postcontrast portion are unremarkable. CONCLUSION: Unremarkable study. Austen Montenegro MD on November 01, 2016 at 22:36 Board Certified Radiologist. This report was verified electronically.
--- NOTE | 2016-11-01 22:45 | RADRPT ---
EXAM DATE/TIME: 11/01/2016 22:28 [facility] COMPARISON: No previous studies available for comparison. INDICATIONS : Abnormal chest scan, lung cancer staging. IV CONTRAST: 80 cc Omnipaque 350 (iohexol) IV ORAL CONTRAST: Prescribed oral contrast ingested. RADIATION DOSE: 16.13 CTDIvol (mGy) MEDICAL HISTORY : Carcinoma, lung. SURGICAL HISTORY : None. ENCOUNTER: Initial ACUITY: 2 days PAIN SCALE: 0/10 LOCATION: abdomen TECHNIQUE: Volumetric scanning of the abdomen and pelvis was performed. Using automated exposure control and ad justment of the mA and/or kV according to patient size, radiation dose was kept as low as reasonably achievable to obtain optimal diagnostic quality images. FINDINGS: CT Abdomen: The liver, spleen, pancreas, kidneys, adrenals are unremarkable. There is no evidence for any appreciable free fluid, or bowel obstruction. There is slight ascites and a small right pleural effusion. There is a large pericardial effusion with thickness of 2.3 cm. Possible gallstones are pr esent in the gallbladder. There are lymph nodes in the upper abdomen at the level of the rishabh hepati s measuring 2.2 cm and 2.1 cm nonspecific. There are smaller lymph nodes surrounding with tiny benign -appearing lymph nodes in the retroperitoneum. CT pelvis: There is no evidence for mass, abscess formation, or any significant adenopathy within the pelvis. There are scattered diverticuli mainly in the sigmoid colon without definite signs of divert iculitis. CONCLUSION: 1. There are lymph nodes in the upper abdomen at the level of the rishabh hepatis nonspecific in regard s to melignancy disease. 2. Large pericardial effusion. 3. Small right pleural effusion and slight ascites. Austen Montenegro MD on November 01, 2016 at 22:39 Board Certified Radiologist. This report was verified electronically.
[2016-11-02] VITALS (15 sets, daily range): BP systolic 107–160; BP diastolic 64–100; PULSE 73–114; RESP 16–22; TEMP 96.5–98.8; O2SAT 92–96
[2016-11-02] MEDS: ACETAMINOPHEN 325 MG TAB PO PRN ×3 (03:53→12:08)
--- NOTE | 2016-11-02 07:49 | MB ---
cc: SVITLANA CANLAES DATE OF CONSULTATION 11/01/2016 REASON FOR CONSULTATION This is a 61-year-old patient who presented to the emergency room with evaluation for shortness of breath. She says she has been basically getting worse for the past few weeks. She was originally treated for what she thought was an ear infection back in August. She was treated with amoxicillin and then Zithromax and then found to have a toothache which was pulled back on Saturday. She was put back on amoxicillin and then felt like she had some type of reaction to the amoxicillin. She felt flushed, dizzy and very itchy. She says her shortness of breath was worsened with exertion. She is quite a heavy smoker and has been smoking for about 40 years. She underwent CTA of the chest to rule out a PE which was negative, however they did find a 4.1 cm irregular lobulated spiculated mass left upper lobe, also with some left hilar mediastinal adenopathy. There was an enlarged lymph node in the prevascular lymph node and also the subcarinal lymph node and a contralateral lymph node at the inferior right hilum. Concern for primary lung malignancy at least stage IIIB per the report. She was also found to have a moderate sized pericardial effusion. We were consulted to evaluate secondary to the effusion. She has currently been scheduled for CT-guided biopsy of the lung mass. She is also pending a 2-D echocardiogram to evaluate the pericardial effusion further. She is currently hemodynamically stable. PAST MEDICAL HISTORY Her past medical history is significant for: 1. Dyspnea 2. Tobacco abuse 3. Recent tooth extraction ALLERGIES Include AMOXICILLIN. MEDICATIONS None FAMILY HISTORY AND SOCIAL HISTORY The patient , smokes two packs a day for 40 years. She says she quit on Saturday. Occasional alcohol. REVIEW OF SYSTEMS As per the above in HPI, otherwise 12 systems unremarkable. PHYSICAL EXAM On exam blood pressure of 130/80, heart rate 96, respiratory rate of 20, temperature max 98.2, O2 sat 91 on room air. GENERAL: Patient is awake, alert, well-nourished, well-developed in no apparent distress. HEAD: Normocephalic, atraumatic. EARS, NOSE, AND THROAT: Oral mucosa pink and moist. NECK: Supple. No JVD. HEART: S1 and S2. No rubs, murmurs, gallops. LUNGS: Diminished in the right lower lobe. No wheezes, rales or rhonchi. ABDOMEN: Soft, obese and nontender. No masses or organomegaly. EXTREMITIES: No cyanosis, clubbing or edema. LAB WORK Hemoglobin 12, hematocrit 36, white cell count 11.5, platelet count 200. Sodium 136, potassium 3.7, BUN of 18, creatinine 0.94, troponin is negative, INR 1.0. Radiological exams as above in the HPI. IMPRESSION This is a 61-year-old female with worsening dyspnea since August with treatment for questionable ear ache which was then found to be a toothache where the tooth was extracted, treated with amoxicillin which she thought she had a reaction however, the CT showed a 4.1 cm right lung mass for which she is to undergo CT-guided biopsy. Await the 2-D echo to evaluate the pericardial effusion more definitively. Currently, she is not hemodynamically unstable, however if the CT-guided biopsy showed malignancy, there is concern for possible metastasis. This was also discussed with the patient. She is also pending oncology evaluation and pending the results of her 2-D echo and a lung biopsy. Further plan pending. Dictated by CHERELLE Cleaning MD KADEEM Chinchilla/NATALYA /4:17 PM /7:41 AM
[2016-11-02] MEDS ORDERED: VANCOMYCIN INJ 1,000 MG in SODIUM CHLOR 0.9% 250 ML INJ 250 ML IV SCH (08:15)
[2016-11-02] MEDS: ALPRAZolam 0.25 MG TAB PO PRN ×2 (08:26→20:46)
[2016-11-02] MEDS: CLINDAMYCIN 150 MG CAP PO SCH ×2 (08:26→12:07)
[2016-11-02] MEDS: SODIUM CHLORIDE 0.9% FLUSH 10 ML FLUSH IV FLUSH SCH ×2 (08:27→20:21)
[2016-11-02] MEDS ORDERED: MIDAZOLAM HCL 5 MG/5 ML VIAL ONE (09:25)
[2016-11-02] MEDS ORDERED: fentaNYL CITRATE 250 MCG/5 ML AMP ONE ×2 (09:26→15:03)
[2016-11-02] MEDS ORDERED: LIDOCAINE 1%/EPINEPHrine 1:100,000 SOLN 20 ML VIAL ONE (09:36)
--- NOTE | 2016-11-02 10:09 | MB ---
cc: BARBI ABBASI MD, ARJUN DATE OF CONSULTATION 11/01/[address] Barbi Abbasi REASON FOR CONSULTATION Lung mass and shortness of breath. HISTORY OF PRESENT ILLNESS Ms. Webster is a 61-year-old female with no significant medical problems. She was complaining of mild shortness of breath after she had a tooth pulled. She was complaining of pain in the area and then found out that she has a tooth infection. She had a tooth extraction, then was started on amoxicillin. The patient was having shortness of breath for two days and she thought she was having amoxicillin reaction. She came to the hospital. She had a CT of the chest done which showed a large left lung mass. No pulmonary embolism. It also shows hilar adenopathy including contralateral hilar adenopathy and pericardial effusion. The patient is seen by Dr. Srini Quintanilla. I discussed with him, he is planning to have the port placed and started on chemotherapy as soon as the biopsy becomes available. PAST MEDICAL HISTORY Unremarkable MEDICATIONS At home, none. She is currently takin. Oxycodone. 2. Clindamycin 3. Ambien ALLERGIES Allergic to AMOXICILLIN. SOCIAL HISTORY She is . She has a long history of smoking of 40 years up to two pack a day. Drinks socially. She is a retired teacher. FAMILY HISTORY She is . She has two children. REVIEW OF SYSTEMS Normally, she is up, around and active. No fever or chills. No night sweats. No hemoptysis. No DVT or pulmonary embolism. PHYSICAL EXAM This is a well-nourished, well-developed female not in acute distress. VITAL SIGNS: Blood pressure 103/81, heart rate 80, respirations 20, temperature 97.8. HEENT: Examination, pupils are equal and reactive to light. Oral mucosa and nasal mucosa normal. NECK: Supple. JVP not raised. CHEST: Air entry equal. No rales or rhonchi. CARDIOVASCULAR: S1 and S2 normal. ABDOMEN: Benign. EXTREMITIES: No edema. TELEPHONE SERVICE REPRESENTATIVE: She is alert, oriented x3. No focal deficit. IMPRESSION 1. Left lung mass with contralateral lymphadenopathy, possibility of small cell carcinoma versus Non-small cell Carcinoma. 2. Likely underlying COPD. 3. Pericardial effusion. 4. Anxiety PLAN I discussed with the patient and her , also discussed with Dr. Quintanilla. We will check for the biopsy result. I will also check a pulmonary function study. Cardiothoracic surgery is consulted for pericardial effusion. She is stable on room air. Further treatment will depend upon the course in the hospital. Thank you Dr. Abbasi for this consultation. MD EFREN Rubio/NATALYA /7:23 PM /9:52 AM
--- NOTE | 2016-11-02 10:21 | MB ---
cc: ARTURO RODRIGUEZ M.D. DATE OF CONSULTATION: 11/01/2016 REASON FOR CONSULTATION: Probable locally advanced lung cancer. PATIENT PROFILE The patient is a 61-year white female. She is . She has three sons. She was born in [place]. She has lived in [place], [place] for the past 28 years. She lives with her . She is retired. 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 Her works for the [employer] department for [employer]. She smokes two packs cigarettes per day and has done this for in excess of 40 years. Alcohol intake is minimal with an occasional drink two or three times a week. She enjoys gardening and reading. HISTORY OF PRESENT ILLNESS The patient is a 61-year female who has no medical problems. She has not seen a physician in many years until the current event. Her major issue prior to her current problem has been panic attacks which occur when she anticipates going to a physician or dentist. Her immediate problem dates back to the beginning of August 2016. She developed pain in the left ear, and at some point went to a walk in clinic and on two occasions was given antibiotics without improvement. Her brought her to the dentist and she had extraction of tooth on the left side which was felt to be abscessed. She was given amoxicillin and noted shortness of breath and itching. Subsequently she was given Cleocin. She went to the emergency room when she was not getting any better and having vague discomfort in the chest and exertional shortness of breath which was new over the past several weeks. Radiographic studies: On 10/31/[address] the [address] a CT pulmonary angiogram which shows an irregular lobulated and spiculated mass in the left upper lobe measuring 4.1 cm. There is continuous left hilar and mediastinal adenopathy with a 2.9 cm anterior left hilar node and a 2.5 cm prevascular lymph node. There is also a 2.5 cm subcarinal lymph node and a contralateral 1.8 cm node in the inferior right hilum. There is a moderate size pericardial effusion measuring up to 2.1 cm. The above picture was felt to be consistent with lung cancer. On 11/01/2016 which is today. The patient underwent a CT-guided needle biopsy of the lung mass. PAST SURGICAL HISTORY Age 18 pilonidal cyst. PAST MEDICAL HISTORY Anxiety disorder. MEDICATIONS PRIOR TO ADMISSION None except for recent 1. Amoxicillin. 2. Cleocin. ALLERGIES Probable allergy to AMOXICILLIN FAMILY HISTORY Mother is living. Father of an SD at age 83. The patient has two sisters who are well. There is no history of malignancy. REVIEW OF SYSTEMS Vision; She has glasses for distance. Hearing is fine. Has discomfort in the left ear. HEENT: Unremarkable except for mild left ear pain CARDIOVASCULAR SYSTEM: Slight discomfort in the left chest area. RESPIRATORY: Exertional shortness of breath and some slight tightness left chest. GASTROINTESTINAL: No melena acute hematemesis. GENITOURINARY: Last menstrual period 5 years ago. No vaginal bleeding. MUSCULOSKELETAL: No bone pain. NEUROLOGIC: No weakness. LABORATORY FINDINGS Lytes, BUN, creatinine liver function tests unremarkable. Hemoglobin 12.3, white count 11,000, platelets 200,000. She had a echocardiogram on 10/31/2016 which shows systolic function to be normal, with an ejection fraction 55-60%. Doppler parameters were consistent with abnormal left ventricular relaxation. There is a moderate partially loculated pericardial effusion identified, circumferentially to the heart. A possibility of hemodynamic compromise. PHYSICAL EXAMINATION: IN GENERAL: Physical examination reveals an appropriately anxious female. She is not in distress. VITAL SIGNS: O2 sat is 90%, blood pressure 103/80, respiratory rate 20, pulse 80 afebrile. HEAD, EYES, EARS, NOSE, AND THROAT: Head is normocephalic. Conjunctivae are normal. Oropharynx is remarkable. LYMPHATICS: Examination of the lymphatics is abnormal. There are multiple malignant appearing left supraclavicular lymph nodes. The fat pad in the left supraclavicular area is elevated compared to the right because of the underlying adenopathy. BREASTS: Without masses. HEART: Regular rhythm 1/6 systolic murmur. LUNGS: Clear. No hepatosplenomegaly. EXTREMITIES: Trace edema. MUSCULOSKELETAL: No bone pain. NEUROLOGIC: No weakness. Cognition, affect normal. SKIN: Unremarkable. ASSESSMENT The patient is a 61-year-old female who presents with a picture consistent with a lung cancer. She has a left lung mass. She has involvement of the left hilum, mediastinum, right hilum, left supraclavicular area as well as a significant pericardial effusion. At the present time I do not see evidence of pericardial tamponade but she is at imminent risk. RECOMMENDATIONS It is imperative to make a diagnosis quickly and initiate treatment. I am hoping that she will have a significant response to treatment and we will be able to avoid a pericardial window. I have ordered a MRI of the brain with contrast, a CT the abdomen and pelvis with contrast, CEA, and placement of and [id number]. It will be determined in short order whether this is a non-small cell lung cancer or a small cell lung cancer. If this is a non-small cell lung cancer, I would be interested in doing PDL1 testing and testing for alk and EGFR. It is not likely that she is going to have a targetable mutation if this is [id number] lung cancer in terms of alk and EGFR given her significant smoking history. The CT scans were reviewed with the patient and . Dr. Manning who is a roustabout pusher came to the room and we discussed the case. MD RADHA Voss/edilma /7:18 PM /9:58 AM JEY
[2016-11-02] MEDS ORDERED: SODIUM CHLORIDE 0.9% FLUSH 10 ML FLUSH IVF PRN (10:30)
--- NOTE | 2016-11-02 10:39 | PD.RAD ---
Post Procedure Progress Note Pre Procedure Diagnosis: (1) Lung mass (2) Tobacco abuse Post Procedure Diagnosis: (1) Lung mass (2) Tobacco abuse Procedure Date: Nov 02, 2016 Supervising Radiologist: Yash hCa Proceduralist/Assist: Mariah Ireland, RT(R), Liudmila Ewing, RT(R) Anesthesia: Local, Analgesia, Conscious Sedation Plan of Activity Patient to Unit: ROPU Patient Condition: Good See PACS Report for procedural detail/treatment Central Venous Access Device Procedure 1 Right Internal Jugular Infusaport Placement single lumen Portuguese: 8 Yash Cha MD Nov 02, 2016 10:38
[2016-11-02] MEDS ORDERED: CHLORHEXIDINE GLUCONATE 4% SOLN 120 ML BTL TOPICAL SCH (11:00)
[2016-11-02] MEDS ORDERED: SODIUM CHLORIDE 0.9% FLUSH 10 ML FLUSH IV FLUSH PRN (11:00)
--- NOTE | 2016-11-02 11:00 | PD.ONC.PN ---
Subjective Subjective Remarks Afebrile overnight. patient anxious. she is more short of breath today, especially with exertion, but even at rest. Objective Data Date Time Temp Pulse Resp B/P Pulse Ox O2 Delivery O2 Flow Rate FiO2 11/02/16 10:10 96 21 11/02/16 08:00 96.7 101 20 135/79 92 11/02/16 04:02 96.5 86 16 149/100 93 11/02/16 00:00 98.2 92 16 120/77 92 11/01/16 23:35 93 11/01/16 20:00 96.2 91 16 142/92 94 11/01/16 19:21 90 21 11/01/16 16:40 97.8 80 20 103/81 90 11/01/16 16:25 80 20 135/80 94 11/01/16 15:55 90 20 140/81 94 11/01/16 15:25 90 22 149/91 92 11/01/16 15:10 97.5 94 20 137/92 93 11/01/16 12:20 96.6 93 20 131/94 94 11/01/16 12:20 96.6 93 20 131/91 94 11/01/16 11:33 98.0 94 22 121/60 92 Result Diagram: 10/31/16 1811 10/31/16 1811 Laboratory Results Laboratory Tests Test 11/02/16 06:50 Carcinoembryonic Antigen 1337.9 NG/ML Imaging Studies Last 24 hours Impressions Chest X-Ray 11/01/16 1730 Signed Impressions: Service Date/Time: October 18:11 - CONCLUSION: No acute process and not changed. Austen Montenegro MD Administered Medications Medications (Trade) Dose Ordered Sig/Constance Route PRN Reason Start Time Stop Time Status Last Admin Dose Admin Acetaminophen (Tylenol) 650 mg Q4H PRN PO HEADACHE OR TEMP > 101 F 10/31/16 20:30 11/02/16 08:27 Sodium Chloride (NS Flush) 2 ml BID IV FLUSH 10/31/16 21:00 11/02/16 08:27 Alprazolam (Xanax) 0.25 mg Q8H PRN PO ANXIETY 11/01/16 04:15 11/02/16 08:26 Clindamycin HCl (Cleocin) 300 mg TID PO 11/01/16 09:00 11/02/16 08:26 Objective Remarks GENERAL: Anxious elderly female, sitting up on the side of the bed, visibly dyspneic SKIN: Warm and dry. HEAD: Normocephalic. EYES: No injection or drainage. NECK: Supple, trachea midline. CARDIOVASCULAR: +S1/S2, tachy RESPIRATORY: visibly dyspneic. on 2L supplemental O2 GASTROINTESTINAL: Abdomen soft, non-tender, nondistended. EXTREMITIES: No cyanosis, or edema. MUSCULOSKELETAL: Adequate muscle tone. NEUROLOGICAL: No obvious focal deficit. Awake, alert, and oriented x3. Assessment/Plan Assessment 61y/o with lung cancer, confirmatory pathology pending Plan 1. she is visibly dyspneic today. CTS has been consulted. Dr. Quintanilla spoke with Dr. Win who graciously agreed to evaluate the patient for pericardial window 2. will need port placement today. IR consulted plan to start chemotherapy once pathology returns--likely early next week. Attending Statement The exam, history, and the medical decision-making described in the above note were completed with the assistance of the mid-level provider. I reviewed and agree with the findings presented. I attest that I had a [id number] encounter with the patient on the same day, and personally performed and documented my assessment and findings in the medical record. patient clearly worse this am with exertional sob. legs no evidence of DVT. Suspect that she has tamponade and will require a window. Discussed with Dr. Win. Path still pending and will plan on treatment early next week. Amy Howard Nov 02, 2016 11:00 Srini Quintanilla MD Nov 02, 2016 18:24
[2016-11-02] MEDS: ONDANSETRON HCL 4 MG/2 ML VIAL IV PUSH PRN ×2 (12:12→12:15)
[2016-11-02] MEDS ORDERED: KETAMINE HCL 500 MG/5 ML VIAL ONE (12:52)
[2016-11-02] MEDS ORDERED: BUPIVACAINE/EPINEPHRINE 0.5% PF 30 ML VIAL ONE (13:00)
[2016-11-02] MEDS ORDERED: NEOSTIGMINE 3 MG/3 ML SYR IV ONE (13:43)
[2016-11-02] MEDS ORDERED: PHENYLEPH/NS 1000 MCG/10 ML SYR IV ONE (13:43)
[2016-11-02] MEDS ORDERED: PROPOFOL 200 MG/20 ML AMP IV ONE (13:43)
[2016-11-02] MEDS ORDERED: ONDANSETRON HCL 4 MG/2 ML VIAL IV PUSH ONE (13:44)
[2016-11-02] MEDS ORDERED: LACTATED RINGER'S 1000 ML INJ 1,000 ML IV ONE (13:44)
[2016-11-02 14:13] LABS: HEMATOCRIT 31.7 % (35.0-46.0); REVIEW FLAG FINAL
--- NOTE | 2016-11-02 14:23 | PD.OP ---
cc: Christine Estrada MD; Edwina Mccurdy MD; Srini Quintanilla MD Operative Report Date of Surgery: Nov 02, 2016 Preoperative Diagnosis: (1) Pericardial effusion (2) Lung mass Postoperative Diagnosis: same Procedure: Subxyphoid pericardial window Anesthesia: Dr. Kitchen Surgeon: Edwina Mccurdy Independent Producer(s): Mike Scales Operation and Findings: After a time out, the patient was prepped and draped in the usual manner. A midline incision was made over the xyphoid and electrocautery was used to carry the dissectrion down to the xyphoid. The xyphoid was isolated and removed sharply. A plane was developed behind the sternum and it was retracted anteriorly. The pericardium was identified and entered sharply. Fluid was collected in sputum traps and submitted for cytology, cultures, and lab studies. Approximately 650 ml of bloody fluid was suctioned. A 32F right angle chest tube was placed posteriorly in the pericardial space through a separate skin incision. This was secured with a 0-silk sutrure. The wound was irrigated an closed in 3 layers. All sponge and instrument counts were correct and the patient was transferred to the PACU in stable condition. Edwina Mccurdy MD Nov 02, 2016 14:23
[2016-11-02] MEDS ORDERED: ACETAMINOPHEN 325 MG TAB PO PRN (14:30)
[2016-11-02] MEDS ORDERED: Post-op Orders (for Pharmacy) MISC OTHER ONE (14:30)
[2016-11-02] MEDS ORDERED: MAGNESIUM HYDROXIDE SUSP 30 ML CUP PO PRN (14:30)
[2016-11-02] MEDS ORDERED: RESP: ALBUTEROL 2.5 MG/3 ML NEB (PRN) NEB (14:30)
[2016-11-02] MEDS ORDERED: *RESP: ALBUTEROL 2.5 MG/3 ML NEB (PRN) PERIprocedural Use ONLY NEB ONE (14:58)
[2016-11-02] MEDS ORDERED: MIDAZOLAM HCL 2 MG/2 ML VIAL ONE (15:03)
[2016-11-02] MEDS ORDERED: *morphine SULFATE 8 MG/ML PERIprocedure ONLY ONE (15:14)
[2016-11-02] MEDS ORDERED: DO NOT ADM ANY ANTICOAGULANT DRUGS PRN (15:15)
--- NOTE | 2016-11-02 15:27 | RADRPT ---
EXAM DATE/TIME: 11/02/2016 09:50 [facility] COMPARISON: No previous studies available for comparison. INDICATIONS : Patient with lung mass in need of [id number]-k-[id number] placement. MEDICAL HISTORY : Dyspnea, Chronic tobacco abuse, Left lung mass SURGICAL HISTORY : Lung mass biopsy ENCOUNTER: Initial ACUITY: 2 days PAIN SCORE: 0/10 FLUORO TIME: 0.6 minutes IMAGE SERIES: 1 SEDATION TIME: 30 minutes ACCESS: Right internal jugular vein SEDATION: 1.) 2.5 mg midazolam (Versed) IV 2.) 125 mcg fentanyl (Sublimaze) IV Prophylactic antibiotics were administered with appropriate pre-procedure timing. Vancomycin within 2 hours of procedure, Ancef (or alternative) within 1 hour of procedure. DEVICE: 1. 8 Mauritanian single lumen Bard Power Port PROCEDURE : 1. Continuous pulse oximetry and EKG monitoring. 2. Intravenous conscious sedation. 3. Ultrasound guidance for venous access. 4. Fluoroscopic guided implantable central venous port placement. The patient was placed supine. The neck was prepped in sterile fashion. Full sterile technique was u sed, including cap, mask, sterile gloves and gown, and a large sterile sheet. Hand hygiene and 2% ch lorhexidine Betadine was utilized per protocol for cutaneous antisepsis with appropriate dry time for site. The skin and subcutaneous tissues were infiltrated with local anesthetic solution. Under direct ultrasound guidance, central venous access was accomplished in the targeted vessel. The ultrasound images depicting access guidance were stored and saved to PACS for permanent record. A s ubcutaneous pocket was created using blunt dissection. The port was introduced to the pocket. The c atheter tubing was fed through a subcutaneous tunnel to the venotomy site. The catheter tubing was c ut to a suitable length and then was introduced through a valved Peel-Away sheath and positioned with catheter tubing tip at the cavo-atrial junction level. The pocket incision was closed with subcutic ular Vicryl suture. Steri-Strips were applied. The port was flushed and locked with heparin solutio n per protocol. Sterile dressing was applied to the site. The patient tolerated the procedure well. Conscious sedation was performed with the prescribed dosages and duration as above in the presence of an independent trained radiology nurse to assist in the monitoring of the patient. EKG and oximetry remained stable throughout the procedure. The patient tolerated the procedure well and there were no complications. The patient was sent to post anesthesia recovery in stable condition. CONCLUSION: Uncomplicated ultrasound and fluoroscopic guided implanted central venous port catheter placement as described in detail above. An 8 Mauritanian Power port was placed. Yash Cha MD on November 02, 2016 at 15:25 Board Certified Radiologist. This report was verified electronically.
[2016-11-02] MEDS: ACETAMINOPHEN 1000 MG/100 ML VIAL IV SCH ×4 (15:29→20:47)
[2016-11-02] MEDS: RESP: ALBUTEROL 2.5 MG/3 ML NEB (SCH) NEB ×2 (16:00→21:51)
[2016-11-02] MEDS ORDERED: *ENALAPRILAT 1.25 MG/ML VIAL PERIprocedural Use ONLY ONE (16:02)
--- NOTE | 2016-11-02 16:08 | RADRPT ---
EXAM DATE/TIME: 11/02/2016 14:56 [facility] COMPARISON: CT PULMONARY ANGIOGRAM, October 31, 2016, 18:54. CHEST EXPIRATION ONLY, November 01, 2016, 18:11. INDICATIONS : Left thorocotomy and central line placement. MEDICAL HISTORY : None. SURGICAL HISTORY : Thorocotomy ENCOUNTER: Initial ACUITY: 1 day PAIN SCORE: 4/10 LOCATION: Bilateral chest FINDINGS: Right chest port is present in good position. Left subclavian central line is also present in satisfa ctory position. There is no evidence of pneumothorax. Left perihilar and upper lobe parenchymal densi ty are again noted. Right lung is grossly clear. CONCLUSION: No pneumothorax Tobias Bain MD on November 02, 2016 at 16:02 Board Certified Radiologist. This report was verified electronically.
[2016-11-02 16:43] LABS: PERICARDIAL HISTIOCYTES 1 %; PERICARDIAL LYMPHS 25 %; PERICARDIAL MESOTHELIAL 2 %; PERICARDIAL POLYS(SEGS) 66 %; PERICARDIAL RBC 2187500 /MM3 (0-0); PERICARDIAL WBC 1500 /MM3 (0-10)
--- NOTE | 2016-11-02 16:58 | HHI.PR ---
Subjective Remarks Reports pain control. Breathing better since surgery. Objective Vitals Vital Signs Date Time Temp Pulse Resp B/P Pulse Ox O2 Delivery O2 Flow Rate FiO2 11/02/16 14:55 98.4 95 16 175/87 95 Simple Mask 8 11/02/16 12:30 97.7 101 18 134/93 92 11/02/16 11:45 101 18 137/87 94 11/02/16 11:00 107 20 160/79 92 11/02/16 10:45 114 20 155/97 95 11/02/16 10:45 114 20 155/97 95 11/02/16 10:10 96 21 11/02/16 08:00 96.7 101 20 135/79 92 11/02/16 04:02 96.5 86 16 149/100 93 11/02/16 00:00 98.2 92 16 120/77 92 11/01/16 23:35 93 11/01/16 20:00 96.2 91 16 142/92 94 11/01/16 19:21 90 21 I/O 11/01/16 11/01/16 11/01/16 11/02/16 11/02/16 11/02/16 07:00 15:00 23:00 07:00 15:00 23:00 Intake Total 0 ml 240 ml 0 ml 1500 ml 100 ml Output Total 700 ml Balance 0 ml 240 ml 0 ml 800 ml 100 ml Intake Oral 0 ml 240 ml 0 ml IV Total 100 ml Other 1500 ml Output Urine Total 100 ml Estimated Blood Loss 600 ml # Voids 1 2 1 3 # Bowel Movements 0 0 0 Result Diagram: 11/02/16 1354 10/31/16 1811 Other Results Microbiology Date/Time Procedure Status Source Growth 11/02/16 14:10 Gram Stain Received Fluid Other Pending 11/02/16 14:10 Body Fluid Culture Received Fluid Other Pending 11/02/16 14:10 Fungal Smear Received Fluid Other Pending 11/02/16 14:10 Fungal Culture Received Fluid Other Pending 11/02/16 14:10 Acid Fast Stain Received Fluid Other Pending 11/02/16 14:10 Mycobacterial Culture Received Fluid Other Pending Imaging Last 24 hours Impressions Port Line Insertion 11/02/16 0000 Signed Impressions: Service Date/Time: Wednesday, November 02, 2016 09:50 - CONCLUSION: Uncomplicated ultrasound and fluoroscopic guided implanted central venous port catheter placement as described in detail above. An 8 Mauritanian Power port was placed. Yash Cha MD Chest X-Ray 11/02/16 0000 Signed Impressions: Service Date/Time: Wednesday, November 02, 2016 14:56 - CONCLUSION: No pneumothorax Tobias Bain MD Chest X-Ray 11/01/16 1730 Signed Impressions: Service Date/Time: October 18:11 - CONCLUSION: No acute process and not changed. Austen Montenegro MD Objective Remarks GENERAL: This is a well-nourished, well-developed patient, in no apparent distress. CARDIOVASCULAR: Regular rate and rhythm Chest wall - drain in place RESPIRATORY: Relatively clear to auscultation bilaterally with mildly diminished breath sounds bilateral bases GASTROINTESTINAL: Abdomen soft, non-tender,nondistended. Normal active bowel sounds MUSCULOSKELETAL: Extremities without clubbing, cyanosis, or edema. NEURO: Alert & Oriented x4 to person, place, time, situation. Moves all ext x4 Procedures 11/01 CT-guided biopsy 11/02 Ghgclc-g-[id number] placement 11/02 pericardial window A/P Problem List: (1) Lung mass ICD Code: R91.8 Status: Acute (2) Pericardial effusion ICD Code: I31.3 Status: Acute (3) Dyspnea ICD Code: R06.00 Status: Acute (4) Tobacco abuse ICD Code: Z72.0 Status: Chronic Assessment and Plan 61 y/o female who presented to the ER on 10/31/16 for evaluation of shortness of breath who was found to have a left lung mass and pericardial effusion. Dyspnea with left Lung Mass suspicious for malignancy - CT pulmonary angiogram negative for PE shows 4.1 cm mass apicoposterior segment left upper lobe with extensive mediastinal and hilar adenopathy including contralateral hilar adenopathy. Small bilateral pleural effusions. - Appreciate pulmonology/oncology service for further recommendations- status post CT-guided biopsy of the mass with radiology with pathology pending, oncology recommended starting chemotherapy next week. Patient had a left internal jugular port placed today by interventional radiology. - Duonebs q4h PRN shortness of breath Oxygen support for hypoxia, 2 L via nasal cannula Pericardial Effusion status post pericardial window today - found on CT pulmonary angiogram: moderate-sized pericardial effusion likely due to malignancy - echocardiogram reviewed and cardiothoracic surgery recommended pericardial window which was performed today. Anxiety related to findings of lung mass - Started Xanax 0.25 mg q8h PRN anxiety Long history of tobacco abuse, smoked 2 packs of cigars her past 40 years - patient states she quit smoking on Saturday - counselled regarding cessation - offered nicotine patch - patient declined Recent tooth extractioncontinue pain medication continue outpatient home clindamycin prescribed by dentist DVT prophylaxis - SCDs, will initiate Lovenox now post procedure. Discharge Planning Home when clinically stable. Problem Qualifiers (1) Dyspnea: Qualified Code: R06.02 - Shortness of breath Christine Estrada MD Nov 02, 2016 16:58
--- NOTE | 2016-11-02 18:52 | HHI.PR ---
Subjective Remarks 61 YOWF with Lung mass,s/p bx had port placed had Pericardial window placed Denies sob no fever Objective Vital Signs Vital Signs Date Time Temp Pulse Resp B/P Pulse Ox O2 Delivery O2 Flow Rate FiO2 11/02/16 16:45 98.8 82 18 129/73 93 11/02/16 16:15 98.2 91 16 154/88 94 Nasal Cannula 3 11/02/16 16:00 95 16 175/102 93 Nasal Cannula 3 11/02/16 15:45 90 15 169/99 92 Nasal Cannula 3 11/02/16 15:30 89 15 169/98 92 Nasal Cannula 3 11/02/16 15:19 15 11/02/16 15:15 92 15 166/98 91 Nasal Cannula 3 11/02/16 15:00 95 15 163/95 98 Simple Mask 8 11/02/16 14:55 98.4 95 16 175/87 95 Simple Mask 8 11/02/16 12:30 97.7 101 18 134/93 92 11/02/16 11:45 101 18 137/87 94 11/02/16 11:00 107 20 160/79 92 11/02/16 10:45 114 20 155/97 95 11/02/16 10:45 114 20 155/97 95 11/02/16 10:10 96 21 11/02/16 08:00 96.7 101 20 135/79 92 11/02/16 04:02 96.5 86 16 149/100 93 11/02/16 00:00 98.2 92 16 120/77 92 11/01/16 23:35 93 11/01/16 20:00 96.2 91 16 142/92 94 11/01/16 19:21 90 21 I/O 11/01/16 11/01/16 11/01/16 11/02/16 11/02/16 11/02/16 07:00 15:00 23:00 07:00 15:00 23:00 Intake Total 0 ml 240 ml 0 ml 1500 ml 200 ml Output Total 700 ml 210 ml Balance 0 ml 240 ml 0 ml 800 ml -10 ml Intake Oral 0 ml 240 ml 0 ml 100 ml IV Total 100 ml Other 1500 ml Output Urine Total 100 ml Chest Tube Drainage Total 210 ml Estimated Blood Loss 600 ml # Voids 1 2 1 3 # Bowel Movements 0 0 0 Result Diagram: 11/02/16 1354 10/31/16 1811 Objective Remarks GENERAL: WBWN WF,NAD SKIN: Warm and dry. HEAD: Normocephalic. EYES: No scleral icterus. No injection or drainage. NECK: Supple, trachea midline. No JVD or lymphadenopathy. CARDIOVASCULAR: Regular rate and rhythm without murmurs, gallops, or rubs. Has Pericardial window placed, cathetor draining RESPIRATORY: Breath sounds equal bilaterally. No accessory muscle use. GASTROINTESTINAL: Abdomen soft, non-tender, nondistended. MUSCULOSKELETAL: No cyanosis, or edema. BACK: Nontender without obvious deformity. No CVA tenderness. A/P Assessment and Plan Lung mass, s/p bx Mediastinal Lymphadenopathy COPD Pericardial window placement PLAN: supplement 02 Aerosol nebs cont abx Check bx result Howard Manning MD Nov 02, 2016 18:52
[2016-11-02] MEDS: PANTOPRAZOLE SOD 40 MG DELAYED RELEASE TAB PO SCH (20:18)
[2016-11-02] MEDS: VANCOMYCIN INJ 1,000 MG in SODIUM CHLOR 0.9% 250 ML INJ 250 ML IV SCH (20:19)
[2016-11-02] MEDS ORDERED: SODIUM CHLORIDE 0.9% FLUSH 10 ML FLUSH IV FLUSH SCH (21:00)
[2016-11-02] MEDS: RESP: BUDESONIDE 0.5 MG/2 ML NEB NEB SCH (21:52)
[2016-11-03] VITALS (19 sets, daily range): BP systolic 103–138; BP diastolic 47–70; PULSE 71–95; RESP 18; TEMP 97.7–98.5; O2SAT 93–98
[2016-11-03] MEDS: ACETAMINOPHEN 1000 MG/100 ML VIAL IV SCH ×6 (03:11→20:38)
[2016-11-03] MEDS: RESP: ALBUTEROL 2.5 MG/3 ML NEB (SCH) NEB ×4 (04:50→22:28)
--- NOTE | 2016-11-03 05:06 | RADRPT ---
EXAM DATE/TIME: 11/03/2016 04:19 [facility] COMPARISON: CHEST SINGLE AP, November 02, 2016, 14:56. INDICATIONS : Shortness of breath, possible pulmonary disease. MEDICAL HISTORY : None. SURGICAL HISTORY : Thoracotomy ENCOUNTER: Subsequent ACUITY: 2 days PAIN SCORE: 4/10 LOCATION: Bilateral chest FINDINGS: There is a CT skeletal Nerrrd-b-Euni in place from the right internal jugular approach with the tip o verlying the right atrium. There is a left subclavian line in good position. The heart size is normal . There is increased density in the left perihilar region and extending into the left upper lobe. The re is also some increased density medial left base. Right lung is clear. CONCLUSION: Left perihilar, upper lobe, and medial base consolidation or atelectasis which appear stable. Tobias Angel MD on November 03, 2016 at 5:02 Board Certified Radiologist. This report was verified electronically.
[2016-11-03 06:21] LABS: AUTOMATED NEUTROPHIL # 8.3 TH/MM3 (1.8-7.7); BASOPHIL # 0.1 TH/MM3 (0-0.2); BASOPHIL % 0.9 % (0.0-2.0); EOSINOPHIL % 0.5 % (0.0-4.0); HEMATOCRIT 30.9 % (35.0-46.0); LYMPH % 12.2 % (9.0-44.0); LYMPHOCYTE # 1.3 TH/MM3 (1.0-4.8); MEAN CELL VOLUME 89.6 FL (80.0-100.0); MEAN CORPUSCULAR HEMOGLOBIN 31.5 PG (27.0-34.0); MEAN CORPUSCULAR HGB CONC 35.2 % (32.0-36.0); MONO % 7.9 % (0.0-8.0); NEUT % 78.5 % (16.0-70.0); PLATELET COUNT 147 TH/MM3 (150-450); RED BLOOD COUNT 3.45 MIL/MM3 (4.00-5.30); RED CELL DISTRIBUTION WIDTH 13.9 % (11.6-17.2); WHITE BLOOD COUNT 10.5 TH/MM3 (4.0-11.0)
[2016-11-03 06:24] LABS: HEMO FLAGS AUTO DIFF
[2016-11-03 06:29] LABS: POTASSIUM 3.6 MEQ/L (3.5-5.1)
[2016-11-03] MEDS: SODIUM CHLORIDE 0.9% FLUSH 10 ML FLUSH IV FLUSH SCH ×2 (09:05→20:39)
[2016-11-03] MEDS: VANCOMYCIN INJ 1,000 MG in SODIUM CHLOR 0.9% 250 ML INJ 250 ML IV SCH (09:05)
[2016-11-03] MEDS: HEPARIN SODIUM - SQ 10,000 UNITS/ML VIAL SQ SCH ×2 (09:05→20:37)
[2016-11-03] MEDS: RESP: BUDESONIDE 0.5 MG/2 ML NEB NEB SCH ×2 (09:17→22:28)
[2016-11-03 09:54] LABS: PLATELET ESTIMATE SMEAR NORMAL (NORMAL); PLATELET MORPHOLOGY NORMAL (NORMAL); SCAN/DIFF AUTO DIFF CONFIRMED
--- NOTE | 2016-11-03 10:13 | PD.CAR.PN ---
CVT Progress Note CVT: POD #: 1 Subjective/Hospital Course: Doing well, s/p pericardial window. Objective: Vital Signs Date Time Temp Pulse Resp B/P Pulse Ox O2 Delivery O2 Flow Rate FiO2 11/03/16 09:19 94 Nasal Cannula 4.00 11/03/16 08:00 87 11/03/16 07:00 97.7 83 18 119/63 93 11/03/16 07:00 83 11/03/16 06:00 71 11/03/16 05:00 77 11/03/16 04:00 77 11/03/16 03:00 98.5 80 18 103/47 93 11/03/16 03:00 80 11/03/16 02:00 81 11/03/16 01:00 79 11/03/16 00:00 78 11/02/16 23:00 97.9 75 21 119/76 93 11/02/16 23:00 75 11/02/16 22:04 94 Nasal Cannula 2.00 11/02/16 22:00 75 11/02/16 21:00 76 11/02/16 20:00 73 11/02/16 19:00 98.6 79 22 107/64 92 11/02/16 16:45 98.8 82 18 129/73 93 11/02/16 16:15 98.2 91 16 154/88 94 Nasal Cannula 3 11/02/16 16:00 95 16 175/102 93 Nasal Cannula 3 11/02/16 15:45 90 15 169/99 92 Nasal Cannula 3 11/02/16 15:30 89 15 169/98 92 Nasal Cannula 3 11/02/16 15:19 15 11/02/16 15:15 92 15 166/98 91 Nasal Cannula 3 11/02/16 15:00 95 15 163/95 98 Simple Mask 8 11/02/16 14:55 98.4 95 16 175/87 95 Simple Mask 8 11/02/16 12:30 97.7 101 18 134/93 92 11/02/16 11:45 101 18 137/87 94 11/02/16 11:00 107 20 160/79 92 11/02/16 10:45 114 20 155/97 95 11/02/16 10:45 114 20 155/97 95 Labs: Laboratory Tests Test 11/03/16 05:30 White Blood Count 10.5 TH/MM3 (4.0-11.0) Red Blood Count 3.45 MIL/MM3 (4.00-5.30) Hemoglobin 10.9 GM/DL (11.6-15.3) Hematocrit 30.9 % (35.0-46.0) Mean Corpuscular Volume 89.6 FL (80.0-100.0) Mean Corpuscular Hemoglobin 31.5 PG (27.0-34.0) Mean Corpuscular Hemoglobin 35.2 % Concent (32.0-36.0) Red Cell Distribution Width 13.9 % (11.6-17.2) Platelet Count 147 TH/MM3 (150-450) Mean Platelet Volume 10.0 FL (7.0-11.0) Neutrophils (%) (Auto) 78.5 % (16.0-70.0) Lymphocytes (%) (Auto) 12.2 % (9.0-44.0) Monocytes (%) (Auto) 7.9 % (0.0-8.0) Eosinophils (%) (Auto) 0.5 % (0.0-4.0) Basophils (%) (Auto) 0.9 % (0.0-2.0) Neutrophils # (Auto) 8.3 TH/MM3 (1.8-7.7) Lymphocytes # (Auto) 1.3 TH/MM3 (1.0-4.8) Monocytes # (Auto) 0.8 TH/MM3 (0-0.9) Eosinophils # (Auto) 0.0 TH/MM3 (0-0.4) Basophils # (Auto) 0.1 TH/MM3 (0-0.2) CBC Comment AUTO DIFF Differential Comment AUTO DIFF CONFIRMED Platelet Estimate NORMAL (NORMAL) Platelet Morphology Comment NORMAL (NORMAL) Sodium Level 137 MEQ/L (136-145) Potassium Level 3.6 MEQ/L (3.5-5.1) Chloride Level 102 MEQ/L (98-107) Carbon Dioxide Level 29.0 MEQ/L (21.0-32.0) Anion Gap 6 MEQ/L (5-15) Blood Urea Nitrogen 15 MG/DL (7-18) Creatinine 0.93 MG/DL (0.50-1.00) Estimat Glomerular Filtration 61 ML/MIN (>89) Rate Random Glucose 88 MG/DL (74-106) Calcium Level 8.2 MG/DL (8.5-10.1) Result Diagram: 11/03/16 0530 11/03/16 0530 Imaging: Last Impressions Chest X-Ray 11/03/16 0500 Signed Impressions: Service Date/Time: Thursday, November 03, 2016 04:19 - CONCLUSION: Left perihilar , upper lobe, and medial base consolidation or atelectasis which appear stable. Tobias Angel MD Port Line Insertion 11/02/16 0000 Signed Impressions: Service Date/Time: Wednesday, November 02, 2016 09:50 - CONCLUSION: Uncomplicated ultrasound and fluoroscopic guided implanted central venous port catheter placement as described in detail above. An 8 [employer] Power port was placed. Yash Cha MD Lung Biopsy CT 11/01/16 0000 Signed Impressions: Service Date/Time: October 13:59 - CONCLUSION: Uncomplicated CT guided biopsy. Clint Ojeda MD Brain MRI 11/01/16 0000 Signed Impressions: Service Date/Time: October 22:01 - CONCLUSION: Unremarkable study. Austen Montenegro MD Abdomen/Pelvis CT 11/01/16 0000 Signed Impressions: Service Date/Time: October 22:28 - CONCLUSION: 1. There are lymph nodes in the upper abdomen at the level of the rishabh hepatis nonspecific in regards to melignancy disease. 2. Large pericardial effusion. 3. Small right pleural effusion and slight ascites. Austen Montenegro MD CT Angiography 10/31/16 1811 Signed Impressions: Service Date/Time: Monday, October 31, 2016 18:54 - CONCLUSION: 1. Negative for pulmonary embolus. 2. 4.1 cm mass apicoposterior segment left upper lobe with extensive mediastinal and hilar adenopathy including contralateral hilar adenopathy as well as a moderate-sized pericardial effusion. Finding most characteristic of a primary lung malignancy, probably at least stage IIIB. Small bilateral pleural effusions. Nahid Caban MD Cardiovascular: RRR Telemetry: NSR Pulmonary: Decreased BS bilat GI/: NABS Incision: dry and intact CT: 100ml/12 hrs Plan: Continue chest tube Path pending Advance diet Encourage PO intake Edwina Spencer MD Nov 03, 2016 10:13
--- NOTE | 2016-11-03 11:08 | HHI.PR ---
Subjective Remarks Patient doing well. SOB improved. Patient ambulating. She does have minimal soreness over the chest wall. Objective Vitals Vital Signs Date Time Temp Pulse Resp B/P Pulse Ox O2 Delivery O2 Flow Rate FiO2 11/03/16 09:19 94 Nasal Cannula 4.00 11/03/16 08:00 87 11/03/16 07:00 97.7 83 18 119/63 93 11/03/16 07:00 83 11/03/16 06:00 71 11/03/16 05:00 77 11/03/16 04:00 77 11/03/16 03:00 98.5 80 18 103/47 93 11/03/16 03:00 80 11/03/16 02:00 81 11/03/16 01:00 79 11/03/16 00:00 78 11/02/16 23:00 97.9 75 21 119/76 93 11/02/16 23:00 75 11/02/16 22:04 94 Nasal Cannula 2.00 11/02/16 22:00 75 11/02/16 21:00 76 11/02/16 20:00 73 11/02/16 19:00 98.6 79 22 107/64 92 11/02/16 16:45 98.8 82 18 129/73 93 11/02/16 16:15 98.2 91 16 154/88 94 Nasal Cannula 3 11/02/16 16:00 95 16 175/102 93 Nasal Cannula 3 11/02/16 15:45 90 15 169/99 92 Nasal Cannula 3 11/02/16 15:30 89 15 169/98 92 Nasal Cannula 3 11/02/16 15:19 15 11/02/16 15:15 92 15 166/98 91 Nasal Cannula 3 11/02/16 15:00 95 15 163/95 98 Simple Mask 8 11/02/16 14:55 98.4 95 16 175/87 95 Simple Mask 8 11/02/16 12:30 97.7 101 18 134/93 92 11/02/16 11:45 101 18 137/87 94 I/O 11/02/16 11/02/16 11/02/16 11/03/16 11/03/16 11/03/16 07:00 15:00 23:00 07:00 15:00 23:00 Intake Total 0 ml 1500 ml 200 ml 1390 ml Output Total 700 ml 210 ml 900 ml Balance 0 ml 800 ml -10 ml 490 ml Intake Oral 0 ml 100 ml 1040 ml IV Total 100 ml 350 ml Other 1500 ml Output Urine Total 100 ml 800 ml Chest Tube Drainage Total 210 ml 100 ml Estimated Blood Loss 600 ml # Voids 3 # Bowel Movements 0 0 Result Diagram: 11/03/16 0530 11/03/16 0530 Objective Remarks GENERAL: This is a well-nourished, well-developed patient, in no apparent distress. CARDIOVASCULAR: Regular rate and rhythm Chest wall - drain in place, currently about 400 mls collected RESPIRATORY: Relatively clear to auscultation bilaterally with mildly diminished breath sounds bilateral bases GASTROINTESTINAL: Abdomen soft, non-tender,nondistended. Normal active bowel sounds MUSCULOSKELETAL: Extremities without clubbing, cyanosis, or edema. NEURO: Alert & Oriented x4 to person, place, time, situation. Moves all ext x4 Procedures 11/01 CT-guided biopsy 11/02 Xsffqz-h-Gmxc placement 11/02 pericardial window Urinary Catheter: No Vascular Central Line Catheter: No A/P Problem List: (1) Lung mass ICD Code: R91.8 Status: Acute (2) Pericardial effusion ICD Code: I31.3 Status: Acute (3) Dyspnea ICD Code: R06.00 Status: Acute (4) Tobacco abuse ICD Code: Z72.0 Status: Chronic Assessment and Plan 61 y/o female who presented to the ER on 10/31/16 for evaluation of shortness of breath who was found to have a left lung mass and pericardial effusion, s/p pericardial window on 11/02/16. Dyspnea with Left Lung Mass suspicious for malignancy. Symptomatic improvement since pericardial window. - CTA 10/31/16 showing 4.1 cm mass apicoposterior segment left upper lobe with extensive mediastinal and hilar adenopathy including contralateral hilar adenopathy. Small bilateral pleural effusions. - Appreciate pulmonology/oncology service for further recommendations- status post CT-guided biopsy of the mass with radiology with pathology pending. Oncology recommended starting chemotherapy next week. Patient had a left internal jugular port placed 11/02. -Will need outpatient PET scan - Duonebs q4h PRN shortness of breath - Oxygen support for hypoxia, 2 L via nasal cannula Pericardial Effusion status post pericardial window today - moderate-sized pericardial effusion likely due to malignancy Anxiety related to findings of lung mass - Started Xanax 0.25 mg q8h PRN anxiety Long history of tobacco abuse, smoked 2 packs of cigars her past 40 years - patient states she quit smoking on Saturday - counselled regarding cessation Recent tooth extractioncontinue pain medication continue outpatient home clindamycin prescribed by dentist DVT prophylaxis - SCDs, Heparin Problem Qualifiers (1) Dyspnea: Qualified Code: R06.02 - Shortness of breath Judith Buckner MD Nov 03, 2016 11:08
--- NOTE | 2016-11-03 11:45 | PD.ONC.PN ---
Subjective Subjective Remarks Afebrile overnight. Pt sitting up in chair at bedside with present. She states she feels significantly better today after getting the procedure. Objective Data Date Time Temp Pulse Resp B/P Pulse Ox O2 Delivery O2 Flow Rate FiO2 11/03/16 11:00 86 11/03/16 11:00 97.9 86 18 119/57 93 11/03/16 09:19 94 Nasal Cannula 4.00 11/03/16 08:00 87 11/03/16 07:00 97.7 83 18 119/63 93 11/03/16 07:00 83 11/03/16 06:00 71 11/03/16 05:00 77 11/03/16 04:00 77 11/03/16 03:00 98.5 80 18 103/47 93 11/03/16 03:00 80 11/03/16 02:00 81 11/03/16 01:00 79 11/03/16 00:00 78 11/02/16 23:00 97.9 75 21 119/76 93 11/02/16 23:00 75 11/02/16 22:04 94 Nasal Cannula 2.00 11/02/16 22:00 75 11/02/16 21:00 76 11/02/16 20:00 73 11/02/16 19:00 98.6 79 22 107/64 92 11/02/16 16:45 98.8 82 18 129/73 93 11/02/16 16:15 98.2 91 16 154/88 94 Nasal Cannula 3 11/02/16 16:00 95 16 175/102 93 Nasal Cannula 3 11/02/16 15:45 90 15 169/99 92 Nasal Cannula 3 11/02/16 15:30 89 15 169/98 92 Nasal Cannula 3 11/02/16 15:19 15 11/02/16 15:15 92 15 166/98 91 Nasal Cannula 3 11/02/16 15:00 95 15 163/95 98 Simple Mask 8 11/02/16 14:55 98.4 95 16 175/87 95 Simple Mask 8 11/02/16 12:30 97.7 101 18 134/93 92 11/02/16 11:45 101 18 137/87 94 11/03/16 11/03/16 11/03/16 07:00 15:00 23:00 Intake Total 1390 ml Output Total 900 ml Balance 490 ml Result Diagram: 11/03/16 0530 11/03/16 0530 Laboratory Results Laboratory Tests Test 11/02/16 11/02/16 11/02/16 11/03/16 13:30 13:54 14:10 05:30 Blood Type A POSITIVE Antibody Screen NEGATIVE Blood Bank Comment Hemoglobin 10.8 GM/DL 10.9 GM/DL Hematocrit 31.7 % 30.9 % Pericardial Fluid WBC 1500 /MM3 Pericardial Fluid RBC 8858373 /MM3 Pericardial Fluid Neutrophils 66 % Pericardial Fluid Lymphocytes 25 % Pericardial Fluid Histiocytes 1 % Pericardial Fluid Mesothelial 2 % Cells Pericardial Fluid Comment Pericardial Fluid Total 7.3 GM/DL Protein Pericardial Fluid LDH 3878 U/L Pericardial Fluid Glucose 38 MG/DL White Blood Count 10.5 TH/MM3 Red Blood Count 3.45 MIL/MM3 Mean Corpuscular Volume 89.6 FL Mean Corpuscular Hemoglobin 31.5 PG Mean Corpuscular Hemoglobin 35.2 % Concent Red Cell Distribution Width 13.9 % Platelet Count 147 TH/MM3 Mean Platelet Volume 10.0 FL Neutrophils (%) (Auto) 78.5 % Lymphocytes (%) (Auto) 12.2 % Monocytes (%) (Auto) 7.9 % Eosinophils (%) (Auto) 0.5 % Basophils (%) (Auto) 0.9 % Neutrophils # (Auto) 8.3 TH/MM3 Lymphocytes # (Auto) 1.3 TH/MM3 Monocytes # (Auto) 0.8 TH/MM3 Eosinophils # (Auto) 0.0 TH/MM3 Basophils # (Auto) 0.1 TH/MM3 CBC Comment AUTO DIFF Differential Comment AUTO DIFF CONFIRMED Platelet Estimate NORMAL Platelet Morphology Comment NORMAL Sodium Level 137 MEQ/L Potassium Level 3.6 MEQ/L Chloride Level 102 MEQ/L Carbon Dioxide Level 29.0 MEQ/L Anion Gap 6 MEQ/L Blood Urea Nitrogen 15 MG/DL Creatinine 0.93 MG/DL Estimat Glomerular Filtration 61 ML/MIN Rate Random Glucose 88 MG/DL Calcium Level 8.2 MG/DL Culture Results Microbiology Date/Time Procedure Status Source Growth 11/02/16 14:10 Acid Fast Stain Received Fluid Other Pending 11/02/16 14:10 Mycobacterial Culture Received Fluid Other Pending 11/02/16 14:10 Gram Stain - Final Resulted Fluid Other 11/02/16 14:10 Body Fluid Culture Resulted Fluid Other Pending 11/02/16 14:10 Fungal Smear - Final Resulted Fluid Other NO FUNGAL ELEMENTS SEEN. 11/02/16 14:10 Fungal Culture Resulted Fluid Other Pending Imaging Studies Last 24 hours Impressions Chest X-Ray 11/03/16 0500 Signed Impressions: Service Date/Time: Thursday, November 03, 2016 04:19 - CONCLUSION: Left perihilar , upper lobe, and medial base consolidation or atelectasis which appear stable. Tobias Angel MD Administered Medications Medications (Trade) Dose Ordered Sig/Constance Route PRN Reason Start Time Stop Time Status Last Admin Dose Admin Ondansetron HCl (Zofran Inj) 4 mg Q8HR PRN IV PUSH NAUSEA 10/31/16 20:30 11/02/16 12:15 Sodium Chloride (NS Flush) 2 ml BID IV FLUSH 10/31/16 21:00 11/03/16 09:05 Oxycodone/ Acetaminophen (Percocet 5-325 Mg) 1 tab Q4H PRN PO PAIN SCALE 1 TO 10 11/01/16 14:30 11/03/16 00:39 Pantoprazole Sodium (Protonix) 40 mg HS PO 11/02/16 21:00 11/02/16 20:18 Heparin Sodium (Porcine) (Heparin Inj) 5,000 units Q12HR SQ 11/03/16 09:00 11/03/16 09:05 Objective Remarks GENERAL: Older female, sitting up in chair at bedside in no distress. SKIN: Warm and dry. HEAD: Normocephalic. EYES: No injection or drainage. NECK: Supple, trachea midline. CARDIOVASCULAR: +S1/S2. RESPIRATORY: Lungs clear, diminished to bases. GASTROINTESTINAL: Abdomen soft, non-tender, nondistended. EXTREMITIES: No cyanosis, or edema. MUSCULOSKELETAL: Adequate muscle tone. NEUROLOGICAL: No obvious focal deficit. Awake, alert, and oriented x3. Assessment/Plan Problem List: (1) Lung mass Status: Acute Plan: -- Found to have mediastinal adenopathy -- s/p CT guided lung biopsy -- Await path results (2) Pericardial effusion Status: Acute Plan: -- Pericardial window on 11/02. -- Chest tube in place Assessment 61y/o with lung cancer, confirmatory pathology pending Plan 1. Pericardial window placed yesterday by Dr Win. 2. S/p CT guided lung biopsy; await path results. 3. She will need outpatient PET scan to determine staging once discharged. 4. Suportive care. Attending Statement The exam, history, and the medical decision-making described in the above note were completed with the assistance of the mid-level provider. I reviewed and agree with the findings presented. I attest that I had a txax-eo-vqam encounter with the patient on the same day, and personally performed and documented my assessment and findings in the medical record. Pt seen and examine. Pain controlled. Pathology still pending. Ok to transfer to . Krystle Polk Nov 03, 2016 11:45 Rupali Friend MD Nov 03, 2016 13:19
--- NOTE | 2016-11-03 12:27 | HHI.PR ---
Subjective Remarks Patient is awake and alert sitting in chair in NAD. s/p pericardial window yesterday. Afebrile. On 4Loxygen with good sats Objective Vital Signs Vital Signs Date Time Temp Pulse Resp B/P Pulse Ox O2 Delivery O2 Flow Rate FiO2 11/03/16 12:00 89 11/03/16 11:00 86 11/03/16 11:00 97.9 86 18 119/57 93 11/03/16 09:19 94 Nasal Cannula 4.00 11/03/16 08:00 87 11/03/16 07:00 97.7 83 18 119/63 93 11/03/16 07:00 83 11/03/16 06:00 71 11/03/16 05:00 77 11/03/16 04:00 77 11/03/16 03:00 98.5 80 18 103/47 93 11/03/16 03:00 80 11/03/16 02:00 81 11/03/16 01:00 79 11/03/16 00:00 78 11/02/16 23:00 97.9 75 21 119/76 93 11/02/16 23:00 75 11/02/16 22:04 94 Nasal Cannula 2.00 11/02/16 22:00 75 11/02/16 21:00 76 11/02/16 20:00 73 11/02/16 19:00 98.6 79 22 107/64 92 11/02/16 16:45 98.8 82 18 129/73 93 11/02/16 16:15 98.2 91 16 154/88 94 Nasal Cannula 3 11/02/16 16:00 95 16 175/102 93 Nasal Cannula 3 11/02/16 15:45 90 15 169/99 92 Nasal Cannula 3 11/02/16 15:30 89 15 169/98 92 Nasal Cannula 3 11/02/16 15:19 15 11/02/16 15:15 92 15 166/98 91 Nasal Cannula 3 11/02/16 15:00 95 15 163/95 98 Simple Mask 8 11/02/16 14:55 98.4 95 16 175/87 95 Simple Mask 8 11/02/16 12:30 97.7 101 18 134/93 92 I/O 11/02/16 11/02/16 11/02/16 11/03/16 11/03/16 11/03/16 07:00 15:00 23:00 07:00 15:00 23:00 Intake Total 0 ml 1500 ml 200 ml 1390 ml Output Total 700 ml 210 ml 900 ml Balance 0 ml 800 ml -10 ml 490 ml Intake Oral 0 ml 100 ml 1040 ml IV Total 100 ml 350 ml Other 1500 ml Output Urine Total 100 ml 800 ml Chest Tube Drainage Total 210 ml 100 ml Estimated Blood Loss 600 ml # Voids 3 # Bowel Movements 0 0 Result Diagram: 11/03/1652911/03/16529 Other Results Laboratory Tests Test 11/02/16 11/02/16 11/02/16 11/03/16 13:30 13:54 14:10 05:30 Blood Type A POSITIVE Antibody Screen NEGATIVE Blood Bank Comment Hemoglobin 10.8 GM/DL 10.9 GM/DL Hematocrit 31.7 % 30.9 % Pericardial Fluid WBC 1500 /MM3 Pericardial Fluid RBC 3915260 /MM3 Pericardial Fluid Neutrophils 66 % Pericardial Fluid Lymphocytes 25 % Pericardial Fluid Histiocytes 1 % Pericardial Fluid Mesothelial 2 % Cells Pericardial Fluid Comment Pericardial Fluid Total 7.3 GM/DL Protein Pericardial Fluid LDH 3878 U/L Pericardial Fluid Glucose 38 MG/DL White Blood Count 10.5 TH/MM3 Red Blood Count 3.45 MIL/MM3 Mean Corpuscular Volume 89.6 FL Mean Corpuscular Hemoglobin 31.5 PG Mean Corpuscular Hemoglobin 35.2 % Concent Red Cell Distribution Width 13.9 % Platelet Count 147 TH/MM3 Mean Platelet Volume 10.0 FL Neutrophils (%) (Auto) 78.5 % Lymphocytes (%) (Auto) 12.2 % Monocytes (%) (Auto) 7.9 % Eosinophils (%) (Auto) 0.5 % Basophils (%) (Auto) 0.9 % Neutrophils # (Auto) 8.3 TH/MM3 Lymphocytes # (Auto) 1.3 TH/MM3 Monocytes # (Auto) 0.8 TH/MM3 Eosinophils # (Auto) 0.0 TH/MM3 Basophils # (Auto) 0.1 TH/MM3 CBC Comment AUTO DIFF Differential Comment AUTO DIFF CONFIRMED Platelet Estimate NORMAL Platelet Morphology Comment NORMAL Sodium Level 137 MEQ/L Potassium Level 3.6 MEQ/L Chloride Level 102 MEQ/L Carbon Dioxide Level 29.0 MEQ/L Anion Gap 6 MEQ/L Blood Urea Nitrogen 15 MG/DL Creatinine 0.93 MG/DL Estimat Glomerular Filtration 61 ML/MIN Rate Random Glucose 88 MG/DL Calcium Level 8.2 MG/DL Test 11/03/16 09:45 Nasal Screen MRSA (PCR) NEGATIVE Objective Remarks GENERAL: Patient is 61 yo in no acute resp distress. SKIN: Warm and dry. HEAD: Normocephalic. EYES: No scleral icterus. No injection or drainage. NECK: Supple, trachea midline. No JVD or lymphadenopathy. CARDIOVASCULAR: Regular rate and rhythm without murmurs, gallops, or rubs. RESPIRATORY: Breath sounds equal bilaterally. No accessory muscle use. GASTROINTESTINAL: Abdomen soft, non-tender, nondistended. MUSCULOSKELETAL: No cyanosis, or edema. BACK: Nontender without obvious deformity. No CVA tenderness. Neuro: Awake and alert A/P Assessment and Plan 1)Resp Insuff 2) DENISE Lung mass, s/p CT guided biopsy on 11/01 likely bronchogenic ca 3)Mediastinal Lymphadenopathy 4)COPD 5)Pericardial effusion s/p pericardial window placement PLAN: Wean down oxygen as cece keep sat >92% Bronchodilators Follow up on path results Monitor CT drainage.. CTS is following Will need outpatient PET scan for staging as outpatient per Onc. PFT to asses severity of her lung disease GI/DVT prophylaxis- on heparin SQ Continue treatment plan. Dalia Foss MD Nov 03, 2016 12:27
[2016-11-03] MEDS ORDERED: ALPRAZolam 0.25 MG TAB PO PRN (16:45)
[2016-11-03] MEDS: PANTOPRAZOLE SOD 40 MG DELAYED RELEASE TAB PO SCH (20:37)
[2016-11-04] VITALS (9 sets, daily range): BP systolic 113–147; BP diastolic 53–80; PULSE 78–88; RESP 18–22; TEMP 97.7–98.4; O2SAT 92–96
[2016-11-04] MEDS: RESP: ALBUTEROL 2.5 MG/3 ML NEB (SCH) NEB ×4 (03:28→21:28)
[2016-11-04] MEDS: ACETAMINOPHEN 1000 MG/100 ML VIAL IV SCH ×4 (03:35→20:52)
--- NOTE | 2016-11-04 06:39 | RADRPT ---
EXAM DATE/TIME: 11/04/2016 05:36 [facility] COMPARISON: CT NEEDLE BIOPSY LUNG, LEFT, November 01, 2016, 13:59. CHEST SINGLE AP, November 03, 2016, 4:19. INDICATIONS : Shortness of breath, possible pulmonary disease. MEDICAL HISTORY : None. SURGICAL HISTORY : Thoracotomy ENCOUNTER: Subsequent ACUITY: 3 days PAIN SCORE: 5/10 LOCATION: Bilateral chest FINDINGS: There is a right-sided Yyqzhq-j-Xidk in place and a left subclavian line. The heart size is normal. T here is increased density at the right base with silhouetting of the right hemidiaphragm. There is fo vincent increased density at the medial left upper lobe. There some prominence of the interstitial markin gs in the left lung especially in the left upper lobe. There some prominence of the left hilum. CONCLUSION: 1. Left medial upper lung mass with some surrounding interstitial disease and prominence of the left hilum. 2. Right base atelectasis, consolidation and/or mild effusion. Tobias Angel MD on November 04, 2016 at 6:35 Board Certified Radiologist. This report was verified electronically.
--- NOTE | 2016-11-04 08:49 | HHI.PR ---
Subjective Remarks No acute events overnight. Afebrile, vital signs stable. Patient reports that she is eating a full diet without difficulty. Has had 1 small bowel movement on postop day #1. Objective Vitals Vital Signs Date Time Temp Pulse Resp B/P Pulse Ox O2 Delivery O2 Flow Rate FiO2 11/04/16 07:00 92 Nasal Cannula 4.00 11/04/16 07:00 98.1 82 18 123/62 92 11/04/16 07:00 82 11/04/16 04:00 78 11/04/16 04:00 98.4 78 22 131/63 92 11/04/16 04:00 92 Nasal Cannula 4.00 11/04/16 00:00 94 Nasal Cannula 2.00 11/04/16 00:00 81 20 113/53 94 11/04/16 00:00 80 11/03/16 21:00 93 Nasal Cannula 2.00 11/03/16 20:00 98.4 82 18 138/70 98 11/03/16 20:00 98 Nasal Cannula 4.00 11/03/16 20:00 82 11/03/16 18:00 88 11/03/16 17:00 84 11/03/16 16:00 76 11/03/16 15:00 98.2 82 18 118/64 93 11/03/16 15:00 82 11/03/16 14:00 82 11/03/16 13:00 95 11/03/16 12:00 89 11/03/16 11:00 86 11/03/16 11:00 97.9 86 18 119/57 93 11/03/16 09:19 94 Nasal Cannula 4.00 I/O 11/03/16 11/03/16 11/03/16 11/04/16 11/04/16 11/04/16 07:00 15:00 23:00 07:00 15:00 23:00 Intake Total 1390 ml 2110 ml 640 ml Output Total 900 ml 1270 ml 1130 ml Balance 490 ml 840 ml -490 ml Intake Oral 1040 ml 1560 ml 440 ml IV Total 350 ml 550 ml 200 ml Output Urine Total 800 ml 1200 ml 1100 ml Chest Tube Drainage Total 100 ml 70 ml 30 ml # Bowel Movements 0 0 1 Result Diagram: 11/03/1630 11/03/16 0530 Objective Remarks GENERAL: This is a well-nourished, well-developed patient, in no apparent distress. CARDIOVASCULAR: Regular rate and rhythm Chest wall - drain in place, CT without air leak RESPIRATORY: Relatively clear to auscultation bilaterally with mildly diminished breath sounds bilateral bases GASTROINTESTINAL: Abdomen soft, non-tender,nondistended. Normal active bowel sounds MUSCULOSKELETAL: Extremities without clubbing, cyanosis, or edema. NEURO: Alert & Oriented x4 to person, place, time, situation. Moves all ext x4 Procedures 11/01 CT-guided biopsy 11/02 Qqgesa-y-Jrvr placement 11/02 pericardial window Procedures 11/01 CT-guided biopsy 11/02 Vfamul-q-Efez placement 11/02 pericardial window A/P Problem List: (1) Lung mass ICD Code: R91.8 Status: Acute (2) Pericardial effusion ICD Code: I31.3 Status: Acute (3) Dyspnea ICD Code: R06.00 Status: Acute (4) Tobacco abuse ICD Code: Z72.0 Status: Chronic Assessment and Plan 61 y/o female who presented to the ER on 10/31/16 for evaluation of shortness of breath who was found to have a left lung mass and pericardial effusion, s/p pericardial window on 11/02/16. Dyspnea with Left Lung Mass suspicious for malignancy. Symptomatic improvement since pericardial window. - CTA 10/31/16 showing 4.1 cm mass apicoposterior segment left upper lobe with extensive mediastinal and hilar adenopathy including contralateral hilar adenopathy. Small bilateral pleural effusions. - Appreciate pulmonology/oncology service for further recommendations- status post CT-guided biopsy of the mass with radiology with pathology pending. Oncology recommended starting chemotherapy next week. Patient had a left internal jugular port placed 11/02. -Will need outpatient PET scan - Duonebs q4h PRN shortness of breath - Oxygen support for hypoxia, 2 L via nasal cannula Pericardial Effusion status post pericardial window POD#2 - moderate-sized pericardial effusion likely due to malignancy - Patient has chest tube without air leak being managed by CV surgery Anxiety related to findings of lung mass - Started Xanax 0.25 mg q8h PRN anxiety Long history of tobacco abuse, smoked 2 packs of cigars her past 40 years - patient states she quit smoking on Saturday - counselled regarding cessation Recent tooth extractioncontinue pain medication continue outpatient home clindamycin prescribed by dentist DVT prophylaxis - SCDs, Heparin Dispo: Pending CV surgery and oncology recommendations Problem Qualifiers (1) Dyspnea: Qualified Code: R06.02 - Shortness of breath Melanie Cuellar MD R3 Nov 04, 2016 08:48
[2016-11-04] MEDS: SODIUM CHLORIDE 0.9% FLUSH 10 ML FLUSH IV FLUSH SCH ×2 (09:07→20:44)
[2016-11-04] MEDS: HEPARIN SODIUM - SQ 10,000 UNITS/ML VIAL SQ SCH ×2 (09:08→20:44)
[2016-11-04] MEDS: RESP: BUDESONIDE 0.5 MG/2 ML NEB NEB SCH ×2 (09:19→21:28)
--- NOTE | 2016-11-04 13:04 | PD.CAR.PN ---
CVT Progress Note CVT: POD #: 2 Subjective/Hospital Course: Doing well, s/p pericardial window. Objective: Vital Signs Date Time Temp Pulse Resp B/P Pulse Ox O2 Delivery O2 Flow Rate FiO2 11/04/16 11:00 88 11/04/16 11:00 92 Nasal Cannula 4.00 11/04/16 11:00 97.7 88 20 146/66 94 11/04/16 09:19 93 Nasal Cannula 4.00 11/04/16 07:00 92 Nasal Cannula 4.00 11/04/16 07:00 98.1 82 18 123/62 92 11/04/16 07:00 82 11/04/16 04:00 78 11/04/16 04:00 98.4 78 22 131/63 92 11/04/16 04:00 92 Nasal Cannula 4.00 11/04/16 00:00 94 Nasal Cannula 2.00 11/04/16 00:00 81 20 113/53 94 11/04/16 00:00 80 11/03/16 21:00 93 Nasal Cannula 2.00 11/03/16 20:00 98.4 82 18 138/70 98 11/03/16 20:00 98 Nasal Cannula 4.00 11/03/16 20:00 82 11/03/16 18:00 88 11/03/16 17:00 84 11/03/16 16:00 76 11/03/16 15:00 98.2 82 18 118/64 93 11/03/16 15:00 82 11/03/16 14:00 82 Result Diagram: 11/03/16 0530 11/03/16 0530 Imaging: Last 24 hours Impressions Chest X-Ray 11/04/16 0500 Signed Impressions: Service Date/Time: Friday, November 04, 2016 05:36 - CONCLUSION: 1. Left medial upper lung mass with some surrounding interstitial disease and prominence of the left hilum. 2. Right base atelectasis, consolidation and/or mild effusion. Tobias Angel MD Cardiovascular: RRR Telemetry: NSR Pulmonary: CTA GI/: NABS, NT Incision: dry and intact CT: 30ml/12 hrs Plan: D/C pericardial tube Encourage ambulation Edwina Mccurdy MD Nov 04, 2016 13:04
[2016-11-04] MEDS: PANTOPRAZOLE SOD 40 MG DELAYED RELEASE TAB PO SCH (20:44)
[2016-11-05] VITALS (12 sets, daily range): BP systolic 128–172; BP diastolic 51–84; PULSE 76–92; RESP 16–22; TEMP 97.7–98.5; O2SAT 91–95
[2016-11-05] MEDS: ACETAMINOPHEN 1000 MG/100 ML VIAL IV SCH ×4 (03:00→21:38)
[2016-11-05] MEDS: RESP: ALBUTEROL 2.5 MG/3 ML NEB (SCH) NEB ×4 (03:28→22:33)
[2016-11-05 04:30] LABS: AUTOMATED NEUTROPHIL # 6.1 TH/MM3 (1.8-7.7); BASOPHIL # 0.1 TH/MM3 (0-0.2); BASOPHIL % 0.9 % (0.0-2.0); EOSINOPHIL # 0.1 TH/MM3 (0-0.4); EOSINOPHIL % 1.4 % (0.0-4.0); HEMATOCRIT 30.7 % (35.0-46.0); HEMO FLAGS DIFF FINAL; LYMPH % 14.5 % (9.0-44.0); LYMPHOCYTE # 1.2 TH/MM3 (1.0-4.8); MEAN CELL VOLUME 91.9 FL (80.0-100.0); MEAN CORPUSCULAR HEMOGLOBIN 30.1 PG (27.0-34.0); MEAN CORPUSCULAR HGB CONC 32.8 % (32.0-36.0); MONO % 7.5 % (0.0-8.0); NEUT % 75.7 % (16.0-70.0); PLATELET COUNT 166 TH/MM3 (150-450); RED BLOOD COUNT 3.34 MIL/MM3 (4.00-5.30); RED CELL DISTRIBUTION WIDTH 14.4 % (11.6-17.2); WHITE BLOOD COUNT 8.1 TH/MM3 (4.0-11.0)
[2016-11-05 04:44] LABS: BICARBONATE 32.2 MEQ/L (21.0-32.0); POTASSIUM 3.3 MEQ/L (3.5-5.1)
--- NOTE | 2016-11-05 05:55 | RADRPT ---
EXAM DATE/TIME: 11/05/2016 03:44 [facility] COMPARISON: CHEST SINGLE AP, November 04, 2016, 5:36. INDICATIONS : Shortness of breath, possible pulmonary disease. MEDICAL HISTORY : None. SURGICAL HISTORY : Thoracotomy. ENCOUNTER: Subsequent ACUITY: 4 - 6 days PAIN SCORE: 5/10 LOCATION: Bilateral chest FINDINGS: A single view of the chest demonstrates bibasilar densities greater on the right lower lobe. The subt le mass along the left upper lobe medially again seen. Right-sided Dmjzco-x-Oyiw is unchanged. Left s ubclavian central line is also unchanged. The cardiomediastinal contours are unremarkable. Osseous s tructures are intact. CONCLUSION: 1. Left upper lobe mass. 2. Bibasilar densities greater along the right lower lobe. Jp Flores MD on November 05, 2016 at 5:51 Board Certified Radiologist. This report was verified electronically.
[2016-11-05] MEDS ORDERED: POTASSIUM CHLORIDE 10 MEQ CONTROLLED RELEASE TAB PO ONE (06:15)
[2016-11-05] MEDS: RESP: BUDESONIDE 0.5 MG/2 ML NEB NEB SCH (07:52)
[2016-11-05] MEDS: HEPARIN SODIUM - SQ 10,000 UNITS/ML VIAL SQ SCH ×2 (08:10→21:38)
[2016-11-05] MEDS: SODIUM CHLORIDE 0.9% FLUSH 10 ML FLUSH IV FLUSH SCH ×2 (08:10→21:38)
--- NOTE | 2016-11-05 14:41 | HHI.PR ---
Subjective Remarks f/u pericardial effusion and lung mass. patient has no complaints. Denied any CP, SOB, palpitations. Objective Vitals Vital Signs Date Time Temp Pulse Resp B/P Pulse Ox O2 Delivery O2 Flow Rate FiO2 11/05/16 11:00 98.5 83 20 151/51 92 11/05/16 11:00 92 Nasal Cannula 3.00 11/05/16 09:13 128/69 11/05/16 07:52 93 Nasal Cannula 3.00 11/05/16 07:00 97.7 92 22 172/82 92 11/05/16 07:00 92 Nasal Cannula 3.00 11/05/16 04:00 92 Nasal Cannula 3.00 11/05/16 04:00 98.2 82 16 130/62 92 11/05/16 00:00 85 18 133/66 91 11/05/16 00:00 86 11/05/16 00:00 91 Nasal Cannula 3.00 11/04/16 22:00 93 Nasal Cannula 3.00 11/04/16 21:50 93 Nasal Cannula 3.00 11/04/16 21:29 Nasal Cannula 4.00 11/04/16 20:51 98.3 84 18 147/72 95 11/04/16 20:51 95 Nasal Cannula 4.00 11/04/16 20:00 84 11/04/16 15:00 98.4 80 20 140/80 96 11/04/16 15:00 80 11/04/16 15:00 96 Nasal Cannula 4.00 I/O 11/04/16 11/04/16 11/04/16 11/05/16 11/05/16 11/05/16 07:00 15:00 23:00 07:00 15:00 23:00 Intake Total 640 ml 1490 ml 440 ml Output Total 1130 ml 1010 ml 1800 ml Balance -490 ml 480 ml -1360 ml Intake Oral 440 ml 1290 ml 240 ml IV Total 200 ml 200 ml 200 ml Output Urine Total 1100 ml 1000 ml 1800 ml Chest Tube Drainage Total 30 ml 10 ml # Bowel Movements 1 0 0 Result Diagram: 11/05/1640911/05/16409 Objective Remarks GENERAL: This is a well-nourished, well-developed patient, in no apparent distress. CARDIOVASCULAR: Regular rate and rhythm no r.m.g RESPIRATORY: Clear to auscultation bilaterally with mildly diminished breath sounds bilateral bases GASTROINTESTINAL: Abdomen soft, non-tender,nondistended. Normal active bowel sounds MUSCULOSKELETAL: Extremities without clubbing, cyanosis, or edema. NEURO: Alert & Oriented x4 to person, place, time, situation. Moves all ext x4 Procedures 11/01 CT-guided biopsy 11/02 [id number] placement 11/02 pericardial window Medications and IVs Current Medications Sodium Chloride 2 ml 2 ml UNSCH PRN IVF FLUSH AFTER USING IV ACCESS; Start 10/31 at 18:15; Stop 10/31/16 at 20:31; Status DC Sodium Chloride (NS 500 ml Inj) 500 ml @ 500 mls/hr ONCE ONCE IV Last administered on 10/31/16 18:26; Start 10/31/16 at 18:15; Stop 10/31/16 at 19:14; Status DC Iohexol (Omnipaque 350 Inj) 75 ml STK-MED ONCE IV Last administered on 19:12; Start 10/31/16 at 19:12; Stop 10/31/16 at 19:13; Status DC Ondansetron HCl (Zofran Inj) 4 mg Q8HR PRN IV PUSH NAUSEA Last administered on 11/02/16 12:15; Start 10/31/16 at 20:30 Acetaminophen (Tylenol) 650 mg Q4H PRN PO HEADACHE OR TEMP > 101 F Last administered on 11/02/16 12:08; Start 10/31/16 at 20:30; Stop 11/02/16 at 14:28; Status DC Albuterol/ Ipratropium (Duoneb Neb) 1 ampule Q4HR NEB PRN NEB SHORTNESS OF BREATH; Start 10/31/16 at 20:45; Stop 11/02/16 at 14:26; Status DC Sodium Chloride (NS Flush) 2 ml BID IV FLUSH Last administered on 11/05/16 08: 10; Start 10/31/16 at 21:00 Sodium Chloride (NS Flush) 2 ml UNSCH PRN IVF FLUSH AFTER USING IV ACCESS; Start 10/31/16 at 20:30; Stop 11/02/16 at 17:06; Status DC Alprazolam (Xanax) 0.25 mg Q8H PRN PO ANXIETY Last administered on 11/02/16 20: 46; Start 11/01/16 at 04:15; Stop 11/03/16 at 10:16; Status DC Senna/Docusate Sodium (Delphine-Colace) 1 tab BID PRN PO CONSTIPATION; Start at 08:00 Magnesium Hydroxide (Milk Of Magnesia Liq) 30 ml DAILY PRN PO for Severe Constipation; Start 11/01/16 at 08:00; Stop 11/02/16 at 17:06; Status DC Zolpidem Tartrate (Ambien) 5 mg HS PRN PO INSOMNIA; Start 11/01/16 at 08:00 Clindamycin HCl (Cleocin) 300 mg TID PO Last administered on 11/02/16 12:07; Start 11/01/16 at 09:00; Stop 11/02/16 at 14:21; Status DC Acetaminophen (Tylenol) 650 mg Q6H PRN PO PAIN SCALE 1 TO 2; Start 11/01/16 at 08:00; Stop 11/01/16 at 15:07; Status DC Acetaminophen/ Hydrocodone Bitart ([place] 5-325 Mg) 1 tab Q4H PRN PO PAIN SCALE 3 TO 5; Start 11/01/16 at 08:00; Stop 11/01/16 at 15:07; Status DC Acetaminophen/ Hydrocodone Bitart ([place] 7.5-325 Mg) 1 tab Q4H PRN PO PAIN SCALE 6 TO 10; Start 11/01/16 at 08:00; Stop 11/01/16 at 15:07; Status DC Naloxone HCl (Narcan Inj) 0.4 mg UNSCH PRN IV SEE LABEL COMMENTS; Start at 08:00 Lidocaine/ Epinephrine (Xylocaine-Epi 1%-1:100,000 Inj) 20 ml STK-MED ONCE .ROUTE Last administered on 11/01/16 13:08; Start 11/01/16 at 13:08; Stop at 13:09; Status DC Midazolam HCl (Versed Inj) 5 mg STK-MED ONCE .ROUTE Last administered on 14:15; Start 11/01/16 at 13:53; Stop 11/01/16 at 13:54; Status DC Fentanyl Citrate (fentaNYL INJ) 250 mcg STK-MED ONCE .ROUTE Last administered on 11/01/16 14:15; Start 11/01/16 at 13:54; Stop 11/01/16 at 13:55; Status DC Oxycodone/ Acetaminophen (Percocet 5-325 Mg) 1 tab Q4H PRN PO PAIN SCALE 1 TO 10 Last administered on 11/03/16 00:39; Start 11/01/16 at 14:30 Diatrizoate Meglum/ Diatrizoate Sod (Md Marie Liq) 18 ml ONCE ONCE PO Last administered on 11/01/16 19:55; Start 11/01/16 at 19:45; Stop 11/01/16 at 19: 46; Status DC Gadodiamide (Omniscan Pf Inj) 18 ml STK-MED ONCE IV Last administered on 22:11; Start 11/01/16 at 22:11; Stop 11/01/16 at 22:12; Status DC Iohexol 80 ml 80 ml STK-MED ONCE IV Last administered on 11/01/16 22:36; Start 11/01/16 at 22:36; Stop 11/01/16 at 22:37; Status DC Vancomycin HCl/ Sodium Chloride (Vancomycin Inj/ NS 250 ml Inj) 250 ml @ 250 mls/hr SKEET OPERATOR IV Last administered on 11/02/16 08:38; Start 11/02/16 at 08:15 ; Stop 11/06/16 at 08:14 Midazolam HCl (Versed Inj) 5 mg STK-MED ONCE .ROUTE Last administered on 09:25; Start 11/02/16 at 09:25; Stop 11/02/16 at 09:26; Status DC Fentanyl Citrate (fentaNYL INJ) 250 mcg STK-MED ONCE .ROUTE Last administered on 11/02/16 09:26; Start 11/02/16 at 09:26; Stop 11/02/16 at 09:27; Status DC Heparin Sodium (Porcine) (*HEPARIN CENTRAL FLUSH PERIprocedural ONLY) 500 units STK-MED ONCE IV FLUSH Last administered on 11/02/16 10:20; Start 11/02/16 at 09: 35; Stop 11/02/16 at 09:36; Status DC Lidocaine/ Epinephrine (Xylocaine-Epi 1%-1:100,000 Inj) 20 ml STK-MED ONCE .ROUTE Last administered on 11/02/16 10:12; Start 11/02/16 at 09:36; Stop at 09:37; Status DC Heparin Sodium (Porcine) (Heparin Central Flush) 500 units UNSCH IV FLUSH ; Start 11/02/16 at 10:30 Sodium Chloride (NS Flush) 5 ml UNSCH PRN IVF SEE PROTOCOL; Start 11/02/16 at 10 :30 Heparin Sodium (Porcine) (Heparin Central Flush) 250 units UNSCH PRN IV FLUSH SEE PROTOCOL; Start 11/02/16 at 10:30 Sodium Chloride (NS Flush) 2 ml BID IV FLUSH ; Start 11/02/16 at 21:00; Stop 11/02 at 21:00; Status DC Sodium Chloride (NS Flush) 2 ml UNSCH PRN IV FLUSH FLUSH AFTER USING IV ACCESS ; Start 11/02/16 at 11:00; Stop 11/02/16 at 11:00; Status DC Chlorhexidine Gluconate (Hibiclens 4% Top Soln) 1 applic SKEET OPERATOR TOPICAL ; Start 11/02/16 at 11:00; Stop 11/09/16 at 10:59 Ketamine HCl (Ketalar Inj) 500 mg STK-MED ONCE .ROUTE ; Start 11/02/16 at 12:52; Stop 11/02/16 at 12:53; Status DC Bupivacaine HCl/ Epinephrine Bitart (Sensorcaine-Epinephrine Pf 0.5% Inj) 30 ml STK-MED ONCE .ROUTE Last administered on 11/02/16 13:36; Start 11/02/16 at 13:00 ; Stop 11/02/16 at 13:01; Status DC Albuterol Sulfate (Albuterol Neb) 2.5 mg Q6HR NEB NEB Last administered on 07:52; Start 11/02/16 at 16:00 Albuterol Sulfate (Albuterol Neb) 2.5 mg Q2HR NEB PRN NEB WHEEZING; Start at 14:30 Budesonide (Pulmicort Respule Neb) 0.5 mg BID NEB NEB Last administered on 07:52; Start 11/02/16 at 20:00 Miscellaneous Information STAT ONCE OTHER ; Start 11/02/16 at 14:30; Stop at 14:31; Status DC Vancomycin HCl/ Sodium Chloride (Vancomycin Inj/ NS 250 ml Inj) 250 ml @ 250 mls/hr Q12H IV Last administered on 11/03/16 09:05; Start 11/02/16 at 21:00; Stop 11/03/16 at 09:59; Status DC Pantoprazole Sodium (Protonix) 40 mg HS PO Last administered on 11/04/16 20:44 ; Start 11/02/16 at 21:00 Magnesium Hydroxide (Milk Of Magnesia Liq) 30 ml DAILY PRN PO CONSTIPATION; Start 11/02/16 at 14:30 Acetaminophen (Tylenol) 650 mg Q4H PRN PO TEMPERATURE > 101 F; Start 11/02/16 at 14:30 Acetaminophen (Ofirmev Inj) 1,000 mg Q6H IV Last administered on 11/03/16 09:06 ; Start 11/02/16 at 14:30; Stop 11/03/16 at 08:31; Status DC Albuterol Sulfate (*ALBUTEROL NEB PERIprocedure ONLY) 2.5 mg STK-MED ONCE NEB Last administered on 11/02/16 14:58; Start 11/02/16 at 14:58; Stop 11/02/16 at 14: 59; Status DC Midazolam HCl (Versed Inj) 2 mg STK-MED ONCE .ROUTE ; Start 11/02/16 at 15:03; Stop 11/02/16 at 15:04; Status DC Fentanyl Citrate (fentaNYL INJ) 250 mcg STK-MED ONCE .ROUTE ; Start 11/02/16 at 15:03; Stop 11/02/16 at 15:04; Status DC Miscellaneous Information ALL NURSING DEPARTME... UNSCH PRN .XX SEE LABEL COMMENTS; Start 11/02/16 at 15:15; Stop 11/03/16 at 15:14; Status DC Morphine Sulfate (*morphine INJ PERIprocedure ONLY) 8 mg STK-MED ONCE .ROUTE Last administered on 11/02/16 15:14; Start 11/02/16 at 15:14; Stop 11/02/16 at 15: 15; Status DC Enalaprilat (*VASOTEC INJ PERIprocedural Use ONLY) 1.25 mg STK-MED ONCE .ROUTE Last administered on 11/02/16 16:02; Start 11/02/16 at 16:02; Stop 11/02/16 at 16: 03; Status DC Heparin Sodium (Porcine) (Heparin Inj) 5,000 units Q12HR SQ Last administered on 11/05/16 08:10; Start 11/03/16 at 09:00 Acetaminophen (Ofirmev Inj) 1,000 mg Q6H IV ; Start 11/03/16 at 12:00; Stop at 12:04; Status DC Acetaminophen (Ofirmev Inj) 1,000 mg Q6H IV Last administered on 11/05/16 08: 10; Start 11/03/16 at 15:00 Alprazolam (Xanax) 0.25 mg Q8H PRN PO anxiety; Start 11/03/16 at 16:45 Potassium Chloride (KCl) 30 meq ONCE ONCE PO Last administered on 11/05/16 07 :07; Start 11/05/16 at 06:15; Stop 11/05/16 at 06:16; Status DC A/P Problem List: (1) Lung mass ICD Code: R91.8 Status: Acute (2) Pericardial effusion ICD Code: I31.3 Status: Acute (3) Dyspnea ICD Code: R06.00 Status: Acute (4) Tobacco abuse ICD Code: Z72.0 Status: Chronic Assessment and Plan 61 y/o female who presented to the ER on 10/31/16 for evaluation of shortness of breath who was found to have a left lung mass and pericardial effusion, s/p pericardial window on 11/02/16. Dyspnea with Left Lung Mass suspicious for malignancy. Symptomatic improvement since pericardial window. - CTA 10/31/16 showing 4.1 cm mass apicoposterior segment left upper lobe with extensive mediastinal and hilar adenopathy including contralateral hilar adenopathy. Small bilateral pleural effusions. - Appreciate pulmonology/oncology service for further recommendations- status post CT-guided biopsy of the mass with radiology with pathology pending. Oncology recommended starting chemotherapy next week. Patient had a left internal jugular port placed 11/02. -Will need outpatient PET scan - Duonebs q4h PRN shortness of breath - Oxygen support for hypoxia, 2 L via nasal cannula Pericardial Effusion status post pericardial window POD#3 - moderate-sized pericardial effusion likely due to malignancy - Patient has chest tube without air leak being managed by CV surgery that was removed yesterday. Anxiety related to findings of lung mass - Started Xanax 0.25 mg q8h PRN anxiety Long history of tobacco abuse, smoked 2 packs of cigars her past 40 years - patient states she quit smoking on Saturday - counselled regarding cessation Recent tooth extractioncontinue pain medication continue outpatient home clindamycin prescribed by dentist DVT prophylaxis - SCDs, Heparin Discharge Planning patient can be downgraded. once cleared by CV and Oncologist can be d/c home. Problem Qualifiers (1) Dyspnea: Qualified Code: R06.02 - Shortness of breath Katrina Connell MD Nov 05, 2016 14:41
--- NOTE | 2016-11-05 19:45 | HHI.PR ---
Subjective Remarks Patient is awake and alert sitting in chair in NAD. s/p pericardial window . Afebrile. On 4Loxygen with good sats Lung Bx Adenocarcinoma Objective Vital Signs Vital Signs Date Time Temp Pulse Resp B/P Pulse Ox O2 Delivery O2 Flow Rate FiO2 11/05/16 15:39 94 Nasal Cannula 3.00 11/05/16 15:00 92 Nasal Cannula 3.00 11/05/16 15:00 76 11/05/16 15:00 98.4 85 20 156/84 94 11/05/16 11:00 98.5 83 20 151/51 92 11/05/16 11:00 92 Nasal Cannula 3.00 11/05/16 09:13 128/69 11/05/16 07:52 93 Nasal Cannula 3.00 11/05/16 07:00 97.7 92 22 172/82 92 11/05/16 07:00 92 Nasal Cannula 3.00 11/05/16 04:00 92 Nasal Cannula 3.00 11/05/16 04:00 98.2 82 16 130/62 92 11/05/16 00:00 85 18 133/66 91 11/05/16 00:00 86 11/05/16 00:00 91 Nasal Cannula 3.00 11/04/16 22:00 93 Nasal Cannula 3.00 11/04/16 21:50 93 Nasal Cannula 3.00 11/04/16 21:29 Nasal Cannula 4.00 11/04/16 20:51 98.3 84 18 147/72 95 11/04/16 20:51 95 Nasal Cannula 4.00 11/04/16 20:00 84 I/O 11/04/16 11/04/16 11/04/16 11/05/16 11/05/16 11/05/16 07:00 15:00 23:00 07:00 15:00 23:00 Intake Total 640 ml 1490 ml 440 ml 1150 ml Output Total 1130 ml 1010 ml 1800 ml 600 ml Balance -490 ml 480 ml -1360 ml 550 ml Intake Oral 440 ml 1290 ml 240 ml 950 ml IV Total 200 ml 200 ml 200 ml 200 ml Output Urine Total 1100 ml 1000 ml 1800 ml 600 ml Chest Tube Drainage Total 30 ml 10 ml # Bowel Movements 1 0 0 0 Result Diagram: 11/05/1640911/05/16409 Objective Remarks GENERAL: Patient is 61 yo in no acute resp distress. SKIN: Warm and dry. HEAD: Normocephalic. EYES: No scleral icterus. No injection or drainage. NECK: Supple, trachea midline. No JVD or lymphadenopathy. CARDIOVASCULAR: Regular rate and rhythm without murmurs, gallops, or rubs. RESPIRATORY: Breath sounds equal bilaterally. No accessory muscle use. GASTROINTESTINAL: Abdomen soft, non-tender, nondistended. MUSCULOSKELETAL: No cyanosis, or edema. BACK: Nontender without obvious deformity. No CVA tenderness. Neuro: Awake and alert A/P Assessment and Plan 1)Resp Insuff--Improved 2) DENISE Lung mass, s/p CT guided biopsy on 11/01 --Poorly diff adenocarcinoma 3)Mediastinal Lymphadenopathy 4)COPD 5)Pericardial effusion s/p pericardial window placement PLAN: Wean down oxygen as cece keep sat >92% Bronchodilators Will need outpatient PET scan for staging as outpatient per Onc. PFT to asses severity of her lung disease GI/DVT prophylaxis- on heparin SQ Pericardial fluid cytology pending Stable to tr to 7th floor. Howard Manning MD Nov 05, 2016 19:45
[2016-11-05] MEDS: PANTOPRAZOLE SOD 40 MG DELAYED RELEASE TAB PO SCH (21:38)
[2016-11-06] VITALS: BP 171/81; PULSE 87; RESP 18; TEMP 96.6; O2SAT 95
[2016-11-06] MEDS: ACETAMINOPHEN 1000 MG/100 ML VIAL IV SCH ×3 (03:06→15:24)
[2016-11-06 04:00] VITALS: BP 131/65; PULSE 80; RESP 17; TEMP 97.2; O2SAT 95
[2016-11-06 05:38] LABS: HEMATOCRIT 30.9 % (35.0-46.0); MEAN CELL VOLUME 91.2 FL (80.0-100.0); MEAN CORPUSCULAR HEMOGLOBIN 30.6 PG (27.0-34.0); MEAN CORPUSCULAR HGB CONC 33.6 % (32.0-36.0); PLATELET COUNT 183 TH/MM3 (150-450); RED BLOOD COUNT 3.39 MIL/MM3 (4.00-5.30); RED CELL DISTRIBUTION WIDTH 14.4 % (11.6-17.2); REVIEW FLAG FINAL; WHITE BLOOD COUNT 6.8 TH/MM3 (4.0-11.0)
[2016-11-06 06:06] LABS: BICARBONATE 31.3 MEQ/L (21.0-32.0); POTASSIUM 3.4 MEQ/L (3.5-5.1)
[2016-11-06 08:00] VITALS: BP 158/83; PULSE 87; RESP 16; TEMP 96.6; O2SAT 94
[2016-11-06] MEDS: HEPARIN SODIUM - SQ 10,000 UNITS/ML VIAL SQ SCH (08:30)
[2016-11-06] MEDS: SODIUM CHLORIDE 0.9% FLUSH 10 ML FLUSH IV FLUSH SCH (08:31)
[2016-11-06] MEDS: RESP: BUDESONIDE 0.5 MG/2 ML NEB NEB SCH (09:23)
[2016-11-06] MEDS: RESP: ALBUTEROL 2.5 MG/3 ML NEB (SCH) NEB (09:28)
[2016-11-06 09:29] VITALS: O2SAT 96
--- NOTE | 2016-11-06 11:12 | PD.CAR.PN ---
CVT Progress Note Subjective/Hospital Course: Doing well, s/p pericardial window. will allow pt to shower incision intact and well approximated ok to dc from CVS standpoint has f/u appointment in 2 weeks with DC instruction Objective: GENERAL: SKIN: Warm and dry.sternal incision intact and well approximated HEAD: Normocephalic. EYES: No scleral icterus. No injection or drainage. NECK: Supple, trachea midline. No JVD or lymphadenopathy. CARDIOVASCULAR: Regular rate and rhythm without murmurs, gallops, or rubs. RESPIRATORY: Breath sounds equal bilaterally. No accessory muscle use. GASTROINTESTINAL: Abdomen soft, non-tender, nondistended. MUSCULOSKELETAL: No cyanosis, or edema. BACK: Nontender without obvious deformity. No CVA tenderness. Vital Signs Date Time Temp Pulse Resp B/P Pulse Ox O2 Delivery O2 Flow Rate FiO2 11/06/16 09:29 96 Nasal Cannula 3.00 11/06/16 08:00 96.6 87 16 158/83 94 11/06/16 04:00 97.2 80 17 131/65 95 11/06/16 00:00 96.6 87 18 171/81 95 11/05/16 23:20 Nasal Cannula 3.00 21 11/05/16 23:20 82 11/05/16 23:00 78 11/05/16 23:00 98.3 82 18 156/80 95 11/05/16 23:00 96 Nasal Cannula 3.00 11/05/16 22:33 94 Nasal Cannula 3.00 11/05/16 22:10 18 11/05/16 19:00 95 Nasal Cannula 3.00 11/05/16 19:00 98.3 82 18 156/80 95 11/05/16 19:00 82 11/05/16 15:39 94 Nasal Cannula 3.00 11/05/16 15:00 92 Nasal Cannula 3.00 11/05/16 15:00 76 11/05/16 15:00 98.4 85 20 156/84 94 Labs: Laboratory Tests Test 11/06/16 04:50 White Blood Count 6.8 TH/MM3 (4.0-11.0) Red Blood Count 3.39 MIL/MM3 (4.00-5.30) Hemoglobin 10.4 GM/DL (11.6-15.3) Hematocrit 30.9 % (35.0-46.0) Mean Corpuscular Volume 91.2 FL (80.0-100.0) Mean Corpuscular Hemoglobin 30.6 PG (27.0-34.0) Mean Corpuscular Hemoglobin 33.6 % Concent (32.0-36.0) Red Cell Distribution Width 14.4 % (11.6-17.2) Platelet Count 183 TH/MM3 (150-450) Mean Platelet Volume 8.8 FL (7.0-11.0) Sodium Level 141 MEQ/L (136-145) Potassium Level 3.4 MEQ/L (3.5-5.1) Chloride Level 105 MEQ/L (98-107) Carbon Dioxide Level 31.3 MEQ/L (21.0-32.0) Anion Gap 5 MEQ/L (5-15) Blood Urea Nitrogen 8 MG/DL (7-18) Creatinine 0.75 MG/DL (0.50-1.00) Estimat Glomerular Filtration 78 ML/MIN (>89) Rate Random Glucose 104 MG/DL (74-106) Calcium Level 8.3 MG/DL (8.5-10.1) Result Diagram: 11/06/160 11/06/16 045 (1) Lung mass Plan: s/p bx poorly differentiated adenocarcinoma / primary lung (2) Pericardial effusion Plan: path pending (3) s/p pericardial window Plan: incision healing well discharge instructions given Josefina Cantor Nov 06, 2016 11:12
[2016-11-06 12:00] VITALS: BP 144/71; PULSE 84; RESP 16; TEMP 97.2; O2SAT 95
[2016-11-06] MEDS ORDERED: POTASSIUM CHLORIDE 20 MEQ CONTROLLED RELEASE TAB PO ONE (12:30)
--- NOTE | 2016-11-06 13:27 | HHI.PR ---
Subjective Remarks Follow up for hypoxia and lung mass. Patient is anxious and walking in the hallway. She denied any shortness of breathing or cough. She stated that she is ready go home. Objective Vitals Vital Signs Date Time Temp Pulse Resp B/P Pulse Ox O2 Delivery O2 Flow Rate FiO2 11/06/16 12:00 97.2 84 16 144/71 95 11/06/16 09:29 96 Nasal Cannula 3.00 11/06/16 08:00 96.6 87 16 158/83 94 11/06/16 04:00 97.2 80 17 131/65 95 11/06/16 00:00 96.6 87 18 171/81 95 11/05/16 23:20 Nasal Cannula 3.00 21 11/05/16 23:20 82 11/05/16 23:00 78 11/05/16 23:00 98.3 82 18 156/80 95 11/05/16 23:00 96 Nasal Cannula 3.00 11/05/16 22:33 94 Nasal Cannula 3.00 11/05/16 22:10 18 11/05/16 19:00 95 Nasal Cannula 3.00 11/05/16 19:00 98.3 82 18 156/80 95 11/05/16 19:00 82 11/05/16 15:39 94 Nasal Cannula 3.00 11/05/16 15:00 92 Nasal Cannula 3.00 11/05/16 15:00 76 11/05/16 15:00 98.4 85 20 156/84 94 I/O 11/05/16 11/05/16 11/05/16 11/06/16 11/06/16 11/06/16 07:00 15:00 23:00 07:00 15:00 23:00 Intake Total 440 ml 1150 ml 240 ml Output Total 1800 ml 600 ml 800 ml Balance -1360 ml 550 ml -560 ml Intake Oral 240 ml 950 ml 240 ml IV Total 200 ml 200 ml Output Urine Total 1800 ml 600 ml 800 ml # Bowel Movements 0 0 Result Diagram: 11/06/16 04511/06/16 0450 Objective Remarks GENERAL: This is a well-nourished, well-developed patient, in no apparent distress. CARDIOVASCULAR: Regular rate and rhythm no r.m.g RESPIRATORY: Clear to auscultation bilaterally with mildly diminished breath sounds bilateral bases GASTROINTESTINAL: Abdomen soft, non-tender,nondistended. Normal active bowel sounds MUSCULOSKELETAL: Extremities without clubbing, cyanosis, or edema. NEURO: Alert & Oriented x4 to person, place, time, situation. Moves all ext x4 Procedures 11/01 CT-guided biopsy 11/02 [id number] placement 11/02 pericardial window Medications and IVs Current Medications Sodium Chloride 2 ml 2 ml UNSCH PRN IVF FLUSH AFTER USING IV ACCESS; Start 10/31 at 18:15; Stop 10/31/16 at 20:31; Status DC Sodium Chloride (NS 500 ml Inj) 500 ml @ 500 mls/hr ONCE ONCE IV Last administered on 10/31/16 18:26; Start 10/31/16 at 18:15; Stop 10/31/16 at 19:14; Status DC Iohexol (Omnipaque 350 Inj) 75 ml STK-MED ONCE IV Last administered on 19:12; Start 10/31/16 at 19:12; Stop 10/31/16 at 19:13; Status DC Ondansetron HCl (Zofran Inj) 4 mg Q8HR PRN IV PUSH NAUSEA Last administered on 11/02/16 12:15; Start 10/31/16 at 20:30 Acetaminophen (Tylenol) 650 mg Q4H PRN PO HEADACHE OR TEMP > 101 F Last administered on 11/02/16 12:08; Start 10/31/16 at 20:30; Stop 11/02/16 at 14:28; Status DC Albuterol/ Ipratropium (Duoneb Neb) 1 ampule Q4HR NEB PRN NEB SHORTNESS OF BREATH; Start 10/31/16 at 20:45; Stop 11/02/16 at 14:26; Status DC Sodium Chloride (NS Flush) 2 ml BID IV FLUSH Last administered on 11/06/16 08: 31; Start 10/31/16 at 21:00 Sodium Chloride (NS Flush) 2 ml UNSCH PRN IVF FLUSH AFTER USING IV ACCESS; Start 10/31/16 at 20:30; Stop 11/02/16 at 17:06; Status DC Alprazolam (Xanax) 0.25 mg Q8H PRN PO ANXIETY Last administered on 11/02/16 20: 46; Start 11/01/16 at 04:15; Stop 11/03/16 at 10:16; Status DC Senna/Docusate Sodium (Delphine-Colace) 1 tab BID PRN PO CONSTIPATION; Start at 08:00 Magnesium Hydroxide (Milk Of Magnesia Liq) 30 ml DAILY PRN PO for Severe Constipation; Start 11/01/16 at 08:00; Stop 11/02/16 at 17:06; Status DC Zolpidem Tartrate (Ambien) 5 mg HS PRN PO INSOMNIA; Start 11/01/16 at 08:00 Clindamycin HCl (Cleocin) 300 mg TID PO Last administered on 11/02/16 12:07; Start 11/01/16 at 09:00; Stop 11/02/16 at 14:21; Status DC Acetaminophen (Tylenol) 650 mg Q6H PRN PO PAIN SCALE 1 TO 2; Start 11/01/16 at 08:00; Stop 11/01/16 at 15:07; Status DC Acetaminophen/ Hydrocodone Bitart ([place] 5-325 Mg) 1 tab Q4H PRN PO PAIN SCALE 3 TO 5; Start 11/01/16 at 08:00; Stop 11/01/16 at 15:07; Status DC Acetaminophen/ Hydrocodone Bitart ([place] 7.5-325 Mg) 1 tab Q4H PRN PO PAIN SCALE 6 TO 10; Start 11/01/16 at 08:00; Stop 11/01/16 at 15:07; Status DC Naloxone HCl (Narcan Inj) 0.4 mg UNSCH PRN IV SEE LABEL COMMENTS; Start at 08:00 Lidocaine/ Epinephrine (Xylocaine-Epi 1%-1:100,000 Inj) 20 ml STK-MED ONCE .ROUTE Last administered on 11/01/16 13:08; Start 11/01/16 at 13:08; Stop at 13:09; Status DC Midazolam HCl (Versed Inj) 5 mg STK-MED ONCE .ROUTE Last administered on 14:15; Start 11/01/16 at 13:53; Stop 11/01/16 at 13:54; Status DC Fentanyl Citrate (fentaNYL INJ) 250 mcg STK-MED ONCE .ROUTE Last administered on 11/01/16 14:15; Start 11/01/16 at 13:54; Stop 11/01/16 at 13:55; Status DC Oxycodone/ Acetaminophen (Percocet 5-325 Mg) 1 tab Q4H PRN PO PAIN SCALE 1 TO 10 Last administered on 11/03/16 00:39; Start 11/01/16 at 14:30 Diatrizoate Meglum/ Diatrizoate Sod (Md Marie Liq) 18 ml ONCE ONCE PO Last administered on 11/01/16 19:55; Start 11/01/16 at 19:45; Stop 11/01/16 at 19: 46; Status DC Gadodiamide (Omniscan Pf Inj) 18 ml STK-MED ONCE IV Last administered on 22:11; Start 11/01/16 at 22:11; Stop 11/01/16 at 22:12; Status DC Iohexol 80 ml 80 ml STK-MED ONCE IV Last administered on 11/01/16 22:36; Start 11/01/16 at 22:36; Stop 11/01/16 at 22:37; Status DC Vancomycin HCl/ Sodium Chloride (Vancomycin Inj/ NS 250 ml Inj) 250 ml @ 250 mls/hr CONSTRUCTION ESTIMATOR IV Last administered on 11/02/16 08:38; Start 11/02/16 at 08:15 ; Stop 11/06/16 at 08:14; Status DC Midazolam HCl (Versed Inj) 5 mg STK-MED ONCE .ROUTE Last administered on 09:25; Start 11/02/16 at 09:25; Stop 11/02/16 at 09:26; Status DC Fentanyl Citrate (fentaNYL INJ) 250 mcg STK-MED ONCE .ROUTE Last administered on 11/02/16 09:26; Start 11/02/16 at 09:26; Stop 11/02/16 at 09:27; Status DC Heparin Sodium (Porcine) (*HEPARIN CENTRAL FLUSH PERIprocedural ONLY) 500 units STK-MED ONCE IV FLUSH Last administered on 11/02/16 10:20; Start 11/02/16 at 09: 35; Stop 11/02/16 at 09:36; Status DC Lidocaine/ Epinephrine (Xylocaine-Epi 1%-1:100,000 Inj) 20 ml STK-MED ONCE .ROUTE Last administered on 11/02/16 10:12; Start 11/02/16 at 09:36; Stop at 09:37; Status DC Heparin Sodium (Porcine) (Heparin Central Flush) 500 units UNSCH IV FLUSH ; Start 11/02/16 at 10:30 Sodium Chloride (NS Flush) 5 ml UNSCH PRN IVF SEE PROTOCOL; Start 11/02/16 at 10 :30 Heparin Sodium (Porcine) (Heparin Central Flush) 250 units UNSCH PRN IV FLUSH SEE PROTOCOL; Start 11/02/16 at 10:30 Sodium Chloride (NS Flush) 2 ml BID IV FLUSH ; Start 11/02/16 at 21:00; Stop 11/02 at 21:00; Status DC Sodium Chloride (NS Flush) 2 ml UNSCH PRN IV FLUSH FLUSH AFTER USING IV ACCESS ; Start 11/02/16 at 11:00; Stop 11/02/16 at 11:00; Status DC Chlorhexidine Gluconate (Hibiclens 4% Top Soln) 1 applic CONSTRUCTION ESTIMATOR TOPICAL ; Start 11/02/16 at 11:00; Stop 11/09/16 at 10:59 Ketamine HCl (Ketalar Inj) 500 mg STK-MED ONCE .ROUTE ; Start 11/02/16 at 12:52; Stop 11/02/16 at 12:53; Status DC Bupivacaine HCl/ Epinephrine Bitart (Sensorcaine-Epinephrine Pf 0.5% Inj) 30 ml STK-MED ONCE .ROUTE Last administered on 11/02/16 13:36; Start 11/02/16 at 13:00 ; Stop 11/02/16 at 13:01; Status DC Albuterol Sulfate (Albuterol Neb) 2.5 mg Q6HR NEB NEB Last administered on 09:28; Start 11/02/16 at 16:00 Albuterol Sulfate (Albuterol Neb) 2.5 mg Q2HR NEB PRN NEB WHEEZING; Start at 14:30 Budesonide (Pulmicort Respule Neb) 0.5 mg BID NEB NEB Last administered on 09:23; Start 11/02/16 at 20:00 Miscellaneous Information STAT ONCE OTHER ; Start 11/02/16 at 14:30; Stop at 14:31; Status DC Vancomycin HCl/ Sodium Chloride (Vancomycin Inj/ NS 250 ml Inj) 250 ml @ 250 mls/hr Q12H IV Last administered on 11/03/16 09:05; Start 11/02/16 at 21:00; Stop 11/03/16 at 09:59; Status DC Pantoprazole Sodium (Protonix) 40 mg HS PO Last administered on 11/05/16 21:38 ; Start 11/02/16 at 21:00 Magnesium Hydroxide (Milk Of Magnesia Liq) 30 ml DAILY PRN PO CONSTIPATION; Start 11/02/16 at 14:30 Acetaminophen (Tylenol) 650 mg Q4H PRN PO TEMPERATURE > 101 F; Start 11/02/16 at 14:30 Acetaminophen (Ofirmev Inj) 1,000 mg Q6H IV Last administered on 11/03/16 09:06 ; Start 11/02/16 at 14:30; Stop 11/03/16 at 08:31; Status DC Albuterol Sulfate (*ALBUTEROL NEB PERIprocedure ONLY) 2.5 mg STK-MED ONCE NEB Last administered on 11/02/16 14:58; Start 11/02/16 at 14:58; Stop 11/02/16 at 14: 59; Status DC Midazolam HCl (Versed Inj) 2 mg STK-MED ONCE .ROUTE ; Start 11/02/16 at 15:03; Stop 11/02/16 at 15:04; Status DC Fentanyl Citrate (fentaNYL INJ) 250 mcg STK-MED ONCE .ROUTE ; Start 11/02/16 at 15:03; Stop 11/02/16 at 15:04; Status DC Miscellaneous Information ALL NURSING DEPARTME... UNSCH PRN .XX SEE LABEL COMMENTS; Start 11/02/16 at 15:15; Stop 11/03/16 at 15:14; Status DC Morphine Sulfate (*morphine INJ PERIprocedure ONLY) 8 mg STK-MED ONCE .ROUTE Last administered on 11/02/16 15:14; Start 11/02/16 at 15:14; Stop 11/02/16 at 15: 15; Status DC Enalaprilat (*VASOTEC INJ PERIprocedural Use ONLY) 1.25 mg STK-MED ONCE .ROUTE Last administered on 4/7/17at 16:02; Start 11/02/16 at 16:02; Stop 11/02/16 at 16: 03; Status DC Heparin Sodium (Porcine) (Heparin Inj) 5,000 units Q12HR SQ Last administered on 11/06/16 08:30; Start 11/03/16 at 09:00 Acetaminophen (Ofirmev Inj) 1,000 mg Q6H IV ; Start 11/03/16 at 12:00; Stop at 12:04; Status DC Acetaminophen (Ofirmev Inj) 1,000 mg Q6H IV Last administered on 11/06/16 08: 31; Start 11/03/16 at 15:00 Alprazolam (Xanax) 0.25 mg Q8H PRN PO anxiety Last administered on 11/06/16 12 :53; Start 11/03/16 at 16:45 Potassium Chloride (KCl) 30 meq ONCE ONCE PO Last administered on 11/05/16 07 :07; Start 11/05/16 at 06:15; Stop 11/05/16 at 06:16; Status DC Potassium Chloride (KCl) 20 meq ONCE ONCE PO Last administered on 11/06/16 12 :53; Start 11/06/16 at 12:30; Stop 11/06/16 at 12:31; Status DC A/P Problem List: (1) Lung mass ICD Code: R91.8 Status: Acute (2) Pericardial effusion ICD Code: I31.3 Status: Acute (3) Dyspnea ICD Code: R06.00 Status: Acute (4) Tobacco abuse ICD Code: Z72.0 Status: Chronic Assessment and Plan 61 y/o female who presented to the ER on 10/31/16 for evaluation of shortness of breath who was found to have a left lung mass and pericardial effusion, s/p pericardial window on 11/02/16. Dyspnea with Left Lung Mass suspicious for malignancy. Symptomatic improvement since pericardial window. - CTA 10/31/16 showing 4.1 cm mass apicoposterior segment left upper lobe with extensive mediastinal and hilar adenopathy including contralateral hilar adenopathy. Small bilateral pleural effusions. - Appreciate pulmonology/oncology service for further recommendations- status post CT-guided biopsy of the mass with radiology with pathology pending. Oncology recommended starting chemotherapy next week. Patient had a left internal jugular port placed 11/02. -Will need outpatient PET scan - Duonebs q4h PRN shortness of breath - Oxygen support for hypoxia, 2 L via nasal cannula -Patient will need a walk test. Most likely needs oxygen. Lung cancer poorly differentiated adenocarcinoma -Dealt with Tara Clemente and she stated that her or Dr. Quintanilla will speak with the patient in regards to the results. Pericardial Effusion status post pericardial window POD#4 - moderate-sized pericardial effusion likely due to malignancy - Patient has chest tube without air leak being managed by CV surgery that was removed 11/04/2016. Anxiety related to findings of lung mass - Started Xanax 0.25 mg q8h PRN anxiety Long history of tobacco abuse, smoked 2 packs of cigars her past 40 years - patient states she quit smoking on Saturday - counselled regarding cessation Recent tooth extractioncontinue pain medication continue outpatient home clindamycin prescribed by dentist DVT prophylaxis - SCDs, Heparin Discharge Planning Patient cleared by oncologist and Cardizem after surgeon for discharge. Dealt with case management in regards to obtaining oxygen. Once patient obtain oxygen can be discharged to home. Problem Qualifiers (1) Dyspnea: Qualified Code: R06.02 - Shortness of breath Katrina Connell MD Nov 06, 2016 13:27
[2016-11-06] MEDS ORDERED: BUDE.5I NEB (13:49)
[2016-11-06] MEDS ORDERED: OXYC1TAB63 PO (13:49)
[2016-11-06] MEDS ORDERED: PANT40TA3 PO (13:49)
[2016-11-06] MEDS ORDERED: ALPR.25 PO (13:49)
--- NOTE | 2016-11-06 13:49 | HHI.DCPOC ---
Discharge Care Plan Diagnosis: (1) Pericardial effusion (2) Lung mass Goals to Promote Your Health * To prevent worsening of your condition and complications * To maintain your health at the optimal level Directions to Meet Your Goals Take your medications as prescribed Follow your dietary instruction Follow activity as directed Keep your appointments as scheduled Take your immunizations and boosters as scheduled If your symptoms worsen call your PCP, if no PCP go to Urgent Care Center or Emergency Room Smoking is Dangerous to Your Health. Avoid second hand smoke Call the 24-hour hour crisis hotline for domestic abuse at Katrina Connell MD Nov 06, 2016 13:49
[2016-11-06] MEDS ORDERED: OXYGENTANK NAS.CANULA (13:51)
--- NOTE | 2016-11-06 14:06 | PD.ONC.PN ---
Subjective Subjective Remarks Afebrile overnight. Patient resting comfortably with at bedside. She feels she is breathing much better. Objective Data Date Time Temp Pulse Resp B/P Pulse Ox O2 Delivery O2 Flow Rate FiO2 11/06/16 13:40 2.00 11/06/16 12:00 97.2 84 16 144/71 95 11/06/16 09:29 96 Nasal Cannula 3.00 11/06/16 08:00 96.6 87 16 158/83 94 11/06/16 04:00 97.2 80 17 131/65 95 11/06/16 00:00 96.6 87 18 171/81 95 11/05/16 23:20 Nasal Cannula 3.00 21 11/05/16 23:20 82 11/05/16 23:00 78 11/05/16 23:00 98.3 82 18 156/80 95 11/05/16 23:00 96 Nasal Cannula 3.00 11/05/16 22:33 94 Nasal Cannula 3.00 11/05/16 22:10 18 11/05/16 19:00 95 Nasal Cannula 3.00 11/05/16 19:00 98.3 82 18 156/80 95 11/05/16 19:00 82 11/05/16 15:39 94 Nasal Cannula 3.00 11/05/16 15:00 92 Nasal Cannula 3.00 11/05/16 15:00 76 11/05/16 15:00 98.4 85 20 156/84 94 11/06/16 11/06/16 11/06/16 07:00 15:00 23:00 Intake Total 240 ml Output Total 800 ml Balance -560 ml Result Diagram: 11/06/16 0450 11/06/16 0450 Laboratory Results Laboratory Tests Test 11/06/16 04:50 White Blood Count 6.8 TH/MM3 Red Blood Count 3.39 MIL/MM3 Hemoglobin 10.4 GM/DL Hematocrit 30.9 % Mean Corpuscular Volume 91.2 FL Mean Corpuscular Hemoglobin 30.6 PG Mean Corpuscular Hemoglobin 33.6 % Concent Red Cell Distribution Width 14.4 % Platelet Count 183 TH/MM3 Mean Platelet Volume 8.8 FL Sodium Level 141 MEQ/L Potassium Level 3.4 MEQ/L Chloride Level 105 MEQ/L Carbon Dioxide Level 31.3 MEQ/L Anion Gap 5 MEQ/L Blood Urea Nitrogen 8 MG/DL Creatinine 0.75 MG/DL Estimat Glomerular Filtration 78 ML/MIN Rate Random Glucose 104 MG/DL Calcium Level 8.3 MG/DL Administered Medications Medications (Trade) Dose Ordered Sig/Constance Route PRN Reason Start Time Stop Time Status Last Admin Dose Admin Ondansetron HCl (Zofran Inj) 4 mg Q8HR PRN IV PUSH NAUSEA 10/31/16 20:30 11/02/16 12:15 Sodium Chloride (NS Flush) 2 ml BID IV FLUSH 10/31/16 21:00 11/06/16 08:31 Oxycodone/ Acetaminophen (Percocet 5-325 Mg) 1 tab Q4H PRN PO PAIN SCALE 1 TO 10 11/01/16 14:30 11/03/16 00:39 Pantoprazole Sodium (Protonix) 40 mg HS PO 11/02/16 21:00 11/05/16 21:38 Heparin Sodium (Porcine) (Heparin Inj) 5,000 units Q12HR SQ 11/03/16 09:00 11/06/16 08:30 Acetaminophen (Ofirmev Inj) 1,000 mg Q6H IV 11/03/16 15:00 11/06/16 08:31 Alprazolam (Xanax) 0.25 mg Q8H PRN PO anxiety 11/03/16 16:45 11/06/16 12:53 Objective Remarks GENERAL: Pleasant middle aged female, sitting up in bed in nad. SKIN: Warm and dry. port in place, right chest wall. HEAD: Normocephalic. EYES: No injection or drainage. NECK: Supple, trachea midline. CARDIOVASCULAR: Regular rate and rhythm RESPIRATORY: diminished at bases, anterior brown with occasional rhonchi. GASTROINTESTINAL: Abdomen soft, non-tender, nondistended. EXTREMITIES: No cyanosis NEUROLOGICAL: awake and alert, normal speech, moving all extremities Assessment/Plan Assessment 61y/o with newly diagnosed lung cancer, pathology shows adenocarcinoma. Plan 1. fs faxed to new patient referrals and information sent to Nicole keen, lung cancer navigator 2. d/w patient pathology results with in attendance. patient was expecting these results but she was understandably overwhelmed at them, nonetheless. discussed following up in clinic for chemotherapy. discussed waiting to receive a phone call from new patient referrals for appointment date and time. I provided her with contact info for the office and Nicole Keen. 3. clear for discharge Amy Howard Nov 06, 2016 14:06
[2016-11-06 16:00] VITALS: BP 156/77; PULSE 85; RESP 16; TEMP 97.3; O2SAT 95
--- NOTE | 2016-11-06 17:07 | HHI.PR ---
Subjective Remarks Patient is awake and alert sitting in chair in NAD. s/p pericardial window . Afebrile. On 4Loxygen with good sats Lung Bx Adenocarcinoma Comfortable, no new complaint Objective Vital Signs Vital Signs Date Time Temp Pulse Resp B/P Pulse Ox O2 Delivery O2 Flow Rate FiO2 11/06/16 16:00 97.3 85 16 156/77 95 11/06/16 13:40 2.00 11/06/16 12:00 97.2 84 16 144/71 95 11/06/16 09:29 96 Nasal Cannula 3.00 11/06/16 08:00 96.6 87 16 158/83 94 11/06/16 04:00 97.2 80 17 131/65 95 11/06/16 00:00 96.6 87 18 171/81 95 11/05/16 23:20 Nasal Cannula 3.00 21 11/05/16 23:20 82 11/05/16 23:00 78 11/05/16 23:00 98.3 82 18 156/80 95 11/05/16 23:00 96 Nasal Cannula 3.00 11/05/16 22:33 94 Nasal Cannula 3.00 11/05/16 22:10 18 11/05/16 19:00 95 Nasal Cannula 3.00 11/05/16 19:00 98.3 82 18 156/80 95 11/05/16 19:00 82 I/O 11/05/16 11/05/16 11/05/16 11/06/16 11/06/16 11/06/16 07:00 15:00 23:00 07:00 15:00 23:00 Intake Total 440 ml 1150 ml 240 ml 960 ml Output Total 1800 ml 600 ml 800 ml Balance -1360 ml 550 ml -560 ml 960 ml Intake Oral 240 ml 950 ml 240 ml 960 ml IV Total 200 ml 200 ml Output Urine Total 1800 ml 600 ml 800 ml # Voids 3 # Bowel Movements 0 0 1 Result Diagram: 11/06/16 04511/06/16 045 Objective Remarks GENERAL: Patient is 61 yo in no acute resp distress. SKIN: Warm and dry. HEAD: Normocephalic. EYES: No scleral icterus. No injection or drainage. NECK: Supple, trachea midline. No JVD or lymphadenopathy. CARDIOVASCULAR: Regular rate and rhythm without murmurs, gallops, or rubs. RESPIRATORY: Breath sounds equal bilaterally. No accessory muscle use. GASTROINTESTINAL: Abdomen soft, non-tender, nondistended. MUSCULOSKELETAL: No cyanosis, or edema. BACK: Nontender without obvious deformity. No CVA tenderness. Neuro: Awake and alert A/P Assessment and Plan 1)Resp Insuff--Improved 2) DENISE Lung mass, s/p CT guided biopsy on 11/01 --Poorly diff adenocarcinoma 3)Mediastinal Lymphadenopathy 4)COPD 5)Pericardial effusion s/p pericardial window placement PLAN: Wean down oxygen as cece keep sat >92% Bronchodilators Will need outpatient PET scan for staging as outpatient per Onc. PFT to asses severity of her lung disease GI/DVT prophylaxis- on heparin SQ Pericardial fluid cytology pending DC Plans underway Home 02 3LNC FU in office 2 weeks Howard Manning MD Nov 06, 2016 17:07
--- NOTE | 2017-01-09 14:41 | HHI.DS ---
Discharge Summary Admission Date Oct 31, 2016 at 20:22 Discharge Date: Nov 06, 2016 Admitting Diagnosis Dyspnea; Lung Mass; pericardial effusion (1) Lung mass ICD Code: R91.8 Diagnosis: Principal (2) Pericardial effusion ICD Code: I31.3 Diagnosis: Principal (3) Dyspnea ICD Code: R06.00 Diagnosis: Principal (4) Tobacco abuse ICD Code: Z72.0 Diagnosis: Secondary Procedures 11/01 CT-guided biopsy 11/02 Cuoobt-h-Mgqv placement 11/02 pericardial window Brief History - From Admission Mrs. Webster is a 61-year-old female with no significant past medical history who presented to the emergency room on 10/31/2016 for evaluation of worsening shortness of breath. The patient is seen in the CDU. She states that she is had progressively worsening shortness of breath and thought this was related to an allergic reaction to amoxicillin that she cannot on Saturday following tooth extraction. In August, she thought she had an ear infection; got amoxicillin and it didn' t clear; then zpak and didn't clear; then dentist; tooth pulled Saturday - back on Amoxicillin. She denies any night sweats, chills, fever, or weight loss. She denies any family history of significant illness. She reports that her shortness of breath is worsened with exertion. She states she's been smoking for many years 2 packs per day. She states she quit smoking on Saturday. Imaging Last Impressions Chest X-Ray 11/05/16 0500 Signed Impressions: Service Date/Time: Saturday, November 05, 2016 03:44 - CONCLUSION: 1. Left upper lobe mass. 2. Bibasilar densities greater along the right lower lobe. Jp Flores MD Port Line Insertion 11/02/16 0000 Signed Impressions: Service Date/Time: Wednesday, November 02, 2016 09:50 - CONCLUSION: Uncomplicated ultrasound and fluoroscopic guided implanted central venous port catheter placement as described in detail above. An 8 [place] [employer] port was placed. Yash Cha MD Lung Biopsy CT 11/01/16 0000 Signed Impressions: Service Date/Time: October 13:59 - CONCLUSION: Uncomplicated CT guided biopsy. Clint Ojeda MD Brain MRI 11/01/16 0000 Signed Impressions: Service Date/Time: October 22:01 - CONCLUSION: Unremarkable study. Austen Montenegro MD Abdomen/Pelvis CT 11/01/16 0000 Signed Impressions: Service Date/Time: October 22:28 - CONCLUSION: 1. There are lymph nodes in the upper abdomen at the level of the rishabh hepatis nonspecific in regards to melignancy disease. 2. Large pericardial effusion. 3. Small right pleural effusion and slight ascites. Austen Montenegro MD CT Angiography 10/31/16 1811 Signed Impressions: Service Date/Time: Monday, October 31, 2016 18:54 - CONCLUSION: 1. Negative for pulmonary embolus. 2. 4.1 cm mass apicoposterior segment left upper lobe with extensive mediastinal and hilar adenopathy including contralateral hilar adenopathy as well as a moderate-sized pericardial effusion. Finding most characteristic of a primary lung malignancy, probably at least stage IIIB. Small bilateral pleural effusions. Nahid Caban MD PE at Discharge GENERAL: This is a well-nourished, well-developed patient, in no apparent distress. CARDIOVASCULAR: Regular rate and rhythm no r.m.g RESPIRATORY: Clear to auscultation bilaterally with mildly diminished breath sounds bilateral bases GASTROINTESTINAL: Abdomen soft, non-tender,nondistended. Normal active bowel sounds MUSCULOSKELETAL: Extremities without clubbing, cyanosis, or edema. NEURO: Alert & Oriented x4 to person, place, time, situation. Moves all ext x4 Hospital Course 61 y/o female who presented to the ER on 10/31/16 for evaluation of shortness of breath who was found to have a left lung mass and pericardial effusion, s/p pericardial window on 11/02/16. Dyspnea with Left Lung Mass suspicious for malignancy. Symptomatic improvement since pericardial window. - CTA 10/31/16 showing 4.1 cm mass apicoposterior segment left upper lobe with extensive mediastinal and hilar adenopathy including contralateral hilar adenopathy. Small bilateral pleural effusions. - Appreciate pulmonology/oncology service for further recommendations- status post CT-guided biopsy of the mass with radiology with pathology pending. Oncology recommended starting chemotherapy next week. Patient had a left internal jugular port placed 11/02. -Will need outpatient PET scan - Duonebs q4h PRN shortness of breath - Oxygen support for hypoxia, 2 L via nasal cannula -Patient had a walk test in which she felt so she required home oxygen. Home oxygen was obtained before discharge. Lung cancer poorly differentiated adenocarcinoma -Patient had a CT-guided biopsy. Oncologist was managing patient. Pericardial Effusion status post pericardial window POD#4 - moderate-sized pericardial effusion likely due to malignancy - Patient has chest tube without air leak being managed by CV surgery that was removed 11/04/2016. Anxiety related to findings of lung mass - Started Xanax 0.25 mg q8h PRN anxiety Long history of tobacco abuse, smoked 2 packs of cigars her past 40 years - patient states she quit smoking on Saturday - counselled regarding cessation Recent tooth extractioncontinue pain medication continue outpatient home clindamycin prescribed by dentist Pt Condition on Discharge: Stable Discharge Disposition: Discharge Home Discharge Time: > 30 minutes Discharge Instructions DIET: Follow Instructions for: As Tolerated, No Restrictions Activities you can perform: Regular-No Restrictions Follow up Referrals: Appointment for Follow Up - 2 Weeks with Edwina Mccurdy MD Oncology - 1 Week with MICHAEL PCP Follow-up - 1 Week New Medications: Oxygen tank (Oxygen tank) 1 Ea Tank 2 LITER NATALIIA.CANULA CONTINUOUS Oxygen Concentrator Portable Gaseous 2 L/min via Nasal Cannula Continuous For 99 months HYPOXEMIA PREVENTION #2 Ref 0 CYLINDER Alprazolam (Xanax) 0.25 Mg Tab 0.25 MG PO Q8H PRN anxiety #20 Ref 0 TAB Budesonide Neb (Pulmicort Respules) 0.5 Mg/2 Ml Neb 0.5 MG NEB BID NEB hypoxia #1 Ref 0 VIAL Oxycodone-Acetaminophen (Oxycodone-Acetaminophen) 5-325 mg Tab 1 TAB PO Q4H PRN severe pain #10 Ref 0 TAB Pantoprazole (Pantoprazole) 40 Mg Tab 40 MG PO HS gerd #15 Ref 0 TAB Discontinued Medications: Clindamycin (Clindamycin) 300 Mg Cap 300 MG PO TID Infection #21 Ref 0 CAP Hydrocodone-Acetaminophen (Hydrocodone-Acetaminophen) 5-325 mg Tab 1 TAB PO Q6H PRN PAIN #30 Ref 0 TAB Ibuprofen (Ibuprofen) 800 Mg Tab 800 MG PO Q8H PRN PAIN SCALE 1 TO 7 Ref 0 TAB Katrina Connell MD Jan 09, 2017 14:41
== END 2016-11-06 18:36 | disposition home or self-care (01) | DRG 164 ==
LOC: PHED 17:55 → PHEDA 20:22 → NEPGCP 23:33 → HOCB 11-01 12:03 → N03B 11-02 15:03 → HCPC 11-02 17:26 → HCVR 11-02 17:45 → HOCA 11-05 23:08
PROVIDERS: ADMIT Family Medicine; ATTEND Family Medicine
PROC: 0BBG3ZX Excision of Left Upper Lung Lobe, Percutaneous Approach, Diagnostic (ICD-10-PCS; 2016-11-01)
PROC: 0W9930Z Drainage of Right Pleural Cavity with Drainage Device, Percutaneous Approach (ICD-10-PCS; 2016-11-02)
PROC: 0JH63WZ Insertion of Totally Implantable Vascular Access Device into Chest Subcutaneous Tissue and Fascia, Percutaneous Approach (ICD-10-PCS; 2016-11-02)
PROC: 05HM33Z Insertion of Infusion Device into Right Internal Jugular Vein, Percutaneous Approach (ICD-10-PCS; 2016-11-02)
PROC: B5131ZA Fluoroscopy of Right Jugular Veins using Low Osmolar Contrast, Guidance (ICD-10-PCS; 2016-11-02)
PROC: B543ZZA Ultrasonography of Right Jugular Veins, Guidance (ICD-10-PCS; 2016-11-02)
PROC: 0W9D00Z Drainage of Pericardial Cavity with Drainage Device, Open Approach (ICD-10-PCS; principal; 2016-11-02 12:53)
DX: C34.12 Malignant neoplasm of upper lobe, left bronchus or lung (principal); J90 Pleural effusion, not elsewhere classified; I31.3 Pericardial effusion (noninflammatory); J44.9 Chronic obstructive pulmonary disease, unspecified; R59.0 Localized enlarged lymph nodes; R09.02 Hypoxemia; F17.210 Nicotine dependence, cigarettes, uncomplicated; F41.0 Panic disorder [episodic paroxysmal anxiety]; Z88.1 Allergy status to other antibiotic agents
CPT/HCPCS: 32405; 36561; 70553; 71010; 71275; 74177; 76937; 77001; 77012; 80048; 80053; 82378; 82550; 82945; 83615; 83690; 83735; 84157; 84484; 85014; 85018; 85025; 85027; 85610; 85730; 86850; 86900; 86901; 87015; 87070; 87102; 87116; 87205; 87206; 87641; 88305; 88341; 88342; 89051; 93005; 93306; 94150; 94620; 94640; 94664; 96360; 99152; 99153; A9579; C1788; J0131; J1642; J1644; J2250; J2270; J2370; J2405; J2710; J3010; J3370; J7040; J7050; J7120; J7613; J7626; Q9963; Q9967

== ENCOUNTER 2017-06-28 15:09 | Emergency (ER) | payer OTHER ==
[~2017-06-28] VITALS: Ht 160 cm; Wt 78.0 kg
[~2017-06-28 15:09] MED LIST: ALPR.25 PO; BUDE.5I NEB; OXYC1TAB63 PO; OXYGENTANK NAS.CANULA; PANT40TA3 PO
[2017-06-28 15:10] VITALS: BP 161/75; PULSE 108; RESP 20; TEMP 98.7; O2SAT 98
[2017-06-28] MEDS ORDERED: IODIXANOL 320 MG/ML 10 ML VIAL (for Rad CT) IVCONTRAST ONE (15:10)
[2017-06-28 16:05] VITALS: BP 145/79; PULSE 98; RESP 20; O2SAT 95
--- NOTE | 2017-06-28 16:22 | PD ---
HPI Chief Complaint: Respiratory Symptoms Time Seen by Provider: 15:46 Travel History International Travel<30 days: No Contact w/Intl Traveler<30days: No Traveled to known affect area: No History of Present Illness HPI PATIENT PRESENTED TO DR RODRIGUEZ OFFICE C/O OF SOME DYSPNEA/SOB WITH ACTIVITY. DR RODRIGUEZ CALLED ME AND MADE ME AWARE OF PATIENTS HISTORY AND HOW PATIENT HAD A PERICARDIAL EFFUSION IN PAST AND THAT IS ONE OF HIS CONCERNS WELL POSSIBLE PULM EMBOLISM. ......AT CURRENT TIME PATIENT IS IN NO DISTRESS, AND IF PFSH Past Medical History Hx Anticoagulant Therapy: No Blood Disorders: No Anxiety: Yes Depression: No Cancer: Yes (LUNG) Cardiovascular Problems: No Chemotherapy: Yes (06/20/17) Diabetes: No Diminished Hearing: No Endocrine: No Genitourinary: No Hypertension: Yes Musculoskeletal: No Neurologic: No Psychiatric: Yes Reproductive: No Respiratory: No Influenza Vaccination: No ?: Not Past Surgical History Cardiac Surgery: Yes (PERICARDIAL EFFUSION) Other Surgery: Yes (PYLIONIDAL CYST) Social History Alcohol Use: Yes (SOC) Tobacco Use: No (QUIT 10/29/16) Substance Use: No Allergies-Medications (Allergen,Severity, Reaction): Coded Allergies: amoxicillin (Unverified Allergy, Severe, 03/12/17) Reported Meds & Prescriptions Reported Meds & Active Scripts Active Oxygen tank (Oxygen) 1 Ea Tank 2 Liter NATALIIA.CANULA CONTINUOUS Oxygen Concentrator Portable Gaseous 2 L/min via Nasal Cannula Continuous For 99 months Pantoprazole (Pantoprazole Sodium) 40 Mg Tab 40 Mg PO HS Oxycodone-Acetaminophen 5-325 mg Tab 1 Tab PO Q4H PRN Pulmicort Respules (Budesonide) 0.5 Mg/2 Ml Neb 0.5 Mg NEB BID NEB Xanax (Alprazolam) 0.25 Mg Tab 0.25 Mg PO Q8H PRN Review of Systems Except as stated in HPI: all other systems reviewed are Neg General / Constitutional: No: Fever Eyes: No: Visual changes HENT: No: Headaches Cardiovascular: No: Chest Pain or Discomfort Respiratory: Positive: Shortness of Breath Gastrointestinal: No: Abdominal Pain Genitourinary: No: Dysuria Musculoskeletal: No: Pain Skin: No Rash Neurologic: No: Weakness Psychiatric: No: Depression Endocrine: No: Polydipsia Hematologic/Lymphatic: No: Easy Bruising Physical Exam Narrative GENERAL: SKIN: Warm and dry. HEAD: Atraumatic. Normocephalic. EYES: Pupils equal and round. No scleral icterus. No injection or drainage. ENT: No nasal bleeding or discharge. Mucous membranes pink and moist. NECK: Trachea midline. No JVD. CARDIOVASCULAR: Regular rate and rhythm. RESPIRATORY: No accessory muscle use. Clear to auscultation. Breath sounds equal bilaterally. GASTROINTESTINAL: Abdomen soft, non-tender, nondistended. MUSCULOSKELETAL: Extremities without clubbing, cyanosis, or edema. No obvious deformities. NEUROLOGICAL: Awake and alert. No obvious cranial nerve deficits. Motor grossly within normal limits. Five out of 5 muscle strength in the arms and legs. Normal speech. PSYCHIATRIC: Appropriate mood and affect; insight and judgment normal. Data Data Last Documented VS Vital Signs Date Time Temp Pulse Resp B/P (MAP) Pulse Ox O2 Delivery O2 Flow Rate FiO2 06/28/17 16:05 98 20 145/79 (101) 95 Room Air 06/28/17 15:10 98.7 Orders Orders Iv Access Insert/Monitor (06/28/17 15:49) Ct Pulmonary Angiogram (06/28/17 15:49) Iodixanol 320 Inj (Rad Ct) (Visipaque 32 (06/28/17 15:10) MDM Medical Decision Making Medical Screen Exam Complete: Yes Emergency Medical Condition: Yes Medical Record Reviewed: Yes Differential Diagnosis PE V PNA V PERICARDIAL EFFUSION Narrative Course DISCUSSED WITH DR RODRIGUEZ, HE RECC THAT IF CT NEG FOR PE/PERICARDIAL EFFUSION OR ANY CATASTROPHIC VASCULAR ISSUE, THAT PATIENT IS STABLE TO BE DISCHARGED AND FOLLOW UP WITH HIM AN OUTPATIENT.... Diagnosis Primary Impression: MEDICAL CLEARANCE Additional Impression: POSSIBLE RADIATION PNEUMONITIS Patient Instructions: General Instructions, Pneumonitis (ED) Scripts Methylprednisolone Dosepak (Medrol Dosepak) 4 Mg Dspk 4 MG PO DIRECTED, #1 DSPK 0 Refills Per Pharmacist direction Prov: Jasiel Gloria MD 06/28/17 Disposition: 01 DISCHARGE HOME Condition: Stable Jasiel Gloria MD Jun 28, 2017 16:22
--- NOTE | 2017-06-28 17:21 | RADRPT ---
EXAM DATE/TIME: 06/28/2017 16:52 [facility] COMPARISON: CT PULMONARY ANGIOGRAM, October 31, 2016, 18:54. INDICATIONS : Short of breath, embolism. IV CONTRAST: 49 cc Visipaque (iodixanol) IV RADIATION DOSE: 23.09 CTDIvol (mGy) MEDICAL HISTORY : Cardiovascular disease. Carcinoma, lung. Hypertension. SURGICAL HISTORY : None. ENCOUNTER: Initial ACUITY: 1 day PAIN SCALE: 4/10 LOCATION: Bilateral chest TECHNIQUE: Volumetric scanning of the chest was performed using a pulmonary embolism protocol MIP images were re constructed. Using automated exposure control and adjustment of the mA and/or kV according to patien t size, radiation dose was kept as low as reasonably achievable to obtain optimal diagnostic quality images. DICOM format image data is available electronically for review and comparison. Follow-up recommendations for detected pulmonary nodules are based at a minimum on nodule size and pa tient risk factors according to Fleischner Society Guidelines. FINDINGS: PULMONARY ARTERIES: No filling defects are seen in the pulmonary arteries through the segmental level. LUNGS: Minimal interstitial prominence is evident, worse in the upper lobes... The mass described on 10/31/16 has slightly decreased in size and now measures only 1.9 cm. PLEURAE: There is no pleural thickening or pleural effusion. MEDIASTINUM: Mediastinal mass has significantly decreased in size as well and is all but in appearance.. MUSCULOSKELETAL: Within normal limits for patient age. MISCELLANEOUS: The visualized upper abdominal organs demonstrate no acute abnormality. CONCLUSION: 1. Negative for central pulmonary emboli 2. Mild interstitial prominence worse in the upper lobes. 3. Left hilar mass and mediastinal disease has slightly decreased in size. Leon Ojeda MD FACR on June 28, 2017 at 17:15 Board Certified Radiologist. This report was verified electronically.
[2017-06-28] MEDS ORDERED: MEDR4PAK PO (17:50)
[2017-06-28] MEDS ORDERED: SODIUM CHLORID 0.9% 500 ML INJ 500 ML IV ONE (18:00)
[2017-06-28 18:59] VITALS: BP 128/67
== END 2017-06-28 19:00 | disposition home or self-care (01) ==
LOC: NEPE 15:09
DX: R06.02 Shortness of breath (principal); R06.00 Dyspnea, unspecified; F41.9 Anxiety disorder, unspecified; I10 Essential (primary) hypertension; Z79.899 Other long term (current) drug therapy
CPT/HCPCS: 71275; 99285; J7040; Q9967

== ENCOUNTER → 2017-08-07 | Outpatient (CLI) | payer OTHER ==
[~2017-08-07] MED LIST changes: +MEDR4PAK PO
--- NOTE | 2017-08-08 12:37 | RSPPFT ---
DATE OF PROCEDURE: 08/07/17 COMMENTS: Spirometry with FVC of 1.4 at 51% of predicted, FEV1 of 0.8 at 31%, FEV1/FVC ratio is decreased. Flow is decreased at FEF 25, FEF 50, FEF 75 and FEF 25-75. There is no response after bronchodilator treatment. Lung volumes show residual volume is increased. TLC is increased. Diffusion capacity is decreased. Flow volume loop indicates an obstructive pattern. Room air arterial blood gases show pH of 7.43, PCO2 of 37, PO2 of 72, BiCarb of 24 and O2 Saturation at 92. 6-minute walk test shows de-saturation. IMPRESSION: 1. Severe obstructive lung disease. 2. No response after bronchodilator treatment. 3. Lung volumes show hyperinflation and air trapping. 4. Severe loss in diffusion capacity. 5. Blood gases shows mild hypoxia. 6. 6-minute walk test shows de-saturation.
== END ==
LOC: PHRSP 07:52
PROVIDERS: ATTEND Specialist
DX: J44.9 Chronic obstructive pulmonary disease, unspecified (principal)
CPT/HCPCS: 36600; 82805; 94060; 94618; 94726; 94729

== ENCOUNTER 2017-08-19 11:56 | Emergency (ER) | payer OTHER ==
[2017-08-19 12:54] LABS: AUTOMATED NEUTROPHIL # 6.3 TH/MM3 (1.8-7.7); BASOPHIL # 0.1 TH/MM3 (0-0.2); BASOPHIL % 1.1 % (0.0-2.0); EOSINOPHIL % 0.6 % (0.0-4.0); HEMATOCRIT 32.6 % (35.0-46.0); HEMO FLAGS DIFF FINAL; HEMOGLOBIN 11.1 GM/DL (11.6-15.3); LYMPH % 13.8 % (9.0-44.0); LYMPHOCYTE # 1.2 TH/MM3 (1.0-4.8); MEAN CELL VOLUME 96.2 FL (80.0-100.0); MEAN CORPUSCULAR HEMOGLOBIN 32.7 PG (27.0-34.0); MEAN PLATELET VOLUME 7.4 FL (7.0-11.0); MONO % 9.3 % (0.0-8.0); MONOCYTE # 0.8 TH/MM3 (0-0.9); NEUT % 75.2 % (16.0-70.0); PLATELET COUNT 222 TH/MM3 (150-450); RED BLOOD COUNT 3.39 MIL/MM3 (4.00-5.30); WHITE BLOOD COUNT 8.4 TH/MM3 (4.0-11.0)
[2017-08-19 13:04] LABS: APTT (PATIENT) 23.3 SEC (24.3-30.1); PROTHROMBIN TIME - PATIENT 10.1 SEC (9.8-11.6)
[2017-08-19 13:14] LABS: ALKALINE PHOSPHATASE 90 U/L (45-117); TOTAL BILIRUBIN ADULT 0.6 MG/DL (0.2-1.0); TOTAL PROTEIN 9.2 GM/DL (6.4-8.2)
[2017-08-19 13:20] LABS: ALBUMIN 3.8 GM/DL (3.4-5.0); ALT (GPT) 33 U/L (10-53); ANION GAP 8 MEQ/L (5-15); AST (GOT) 42 U/L (15-37); BLOOD UREA NITROGEN 22 MG/DL (7-18); CALCIUM 9.9 MG/DL (8.5-10.1); CHLORIDE 95 MEQ/L (98-107); CREATININE 1.21 MG/DL (0.50-1.00); GLOMERULAR FILTRATION RATE 45 ML/MIN (>89); GLUCOSE,RANDOM 95 MG/DL (74-106); SODIUM (NA) 129 MEQ/L (136-145)
[2017-08-19 13:30] LABS: POTASSIUM 4.5 MEQ/L (3.5-5.1)
[2017-08-19] MEDS ORDERED: ACETAMINOPHEN/HYDROcodone 325 MG/7.5 MG TAB PO (14:15)
[2017-08-19] MEDS: SODIUM CHLOR 0.9% 1000 ML INJ 1,000 ML IV (14:42)
[2017-08-19] MEDS: ONDANSETRON HCL 4 MG/2 ML VIAL IV PUSH (14:43)
[2017-08-19] MEDS: MORPHINE SULFATE 2 MG/ML INJ IV PUSH ×2 (15:15→16:36)
[2017-08-19] MEDS: IOHEXOL 350 MG/ML 10 ML VIAL (for RAD DIAG) IVCONTRAST (15:30)
== END 2017-08-19 17:01 | disposition home or self-care (01) ==
LOC: NEPC 11:56
DX: C34.90 Malignant neoplasm of unspecified part of unspecified bronchus or lung (principal); R13.10 Dysphagia, unspecified; Z87.891 Personal history of nicotine dependence; Z51.5 Encounter for palliative care
CPT/HCPCS: 70491; 71046; 80053; 85025; 85610; 85730; 96361; 96374; 96375; 96376; 99285-25

== ENCOUNTER 2017-08-22 12:23 | Inpatient (IN) | payer OTHER ==
[2017-08-22] VITALS (8 sets, daily range): BP systolic 150–173; BP diastolic 79–100; PULSE 92–99; RESP 14–20; TEMP 97.7–97.8; O2SAT 96–98
[~2017-08-22] VITALS: Ht 160 cm; Wt 67.3 kg
[~2017-08-22 12:23] MED LIST changes: +HYDR-3580 PO
[2017-08-22] MEDS ORDERED: GADODIAMIDE PF 287 MG/ML 5 ML VIAL (for RAD MRI) IVCONTRAST ONE (12:24)
[2017-08-22] MEDS ORDERED: PRED20 PO (12:46)
[2017-08-22] MEDS ORDERED: ENAL5TAB98 PO (12:46)
[2017-08-22] MEDS ORDERED: MORPHINE SULFATE 8 MG/ML INJ IV PUSH ONE (13:00)
[2017-08-22] MEDS ORDERED: PROCHLORPERAZINE INJ 10 MG/2 ML VIAL IV PUSH ONE ×2 (13:00→16:45)
--- NOTE | 2017-08-22 13:32 | PD ---
HPI Chief Complaint: Medical Clearance Time Seen by Provider: 12:59 Travel History International Travel<30 days: No Contact w/Intl Traveler<30days: No Traveled to known affect area: No History of Present Illness HPI His is a 62-year-old female with unfortunate history of stage IV adenocarcinoma of the lung, who presents today with complaints of weakness and pain from her neck all the way down to her toes. The patient was seen by her oncologist, Dr. Srini Quintanilla prior to being sent to the ER. He sent her here for admission and further evaluation including an MRI of the brain with contrast. The patient reports over the last couple days, she's had increasing pain including pain from her neck arms legs chest back feet. She denies any weakness. She states that she's been having difficulty swallowing and actually feels as though she may be aspirating when she drinks thin liquids. She reports when she drinks thicker liquids like in short, she is able to swallow much better and rarely coughs and chokes when she drinks. She also reports decreased food intake. There is no reported fevers, chills. She denies any head pain. PFSH Past Medical History Hx Anticoagulant Therapy: No Blood Disorders: No Anxiety: Yes Depression: No Cancer: Yes (LUNG) Cardiovascular Problems: No Chemotherapy: Yes Diabetes: No Diminished Hearing: No Endocrine: No Genitourinary: No Hypertension: Yes Musculoskeletal: No Neurologic: No Psychiatric: Yes Reproductive: No Respiratory: Yes Tetanus Vaccination: Unknown Influenza Vaccination: No Past Surgical History Cardiac Surgery: Yes (PERICARDIAL EFFUSION) Other Surgery: Yes (PYLIONIDAL CYST) Social History Alcohol Use: No (quit ten months ago) Tobacco Use: No (QUIT 10/29/16) Substance Use: No Allergies-Medications (Allergen,Severity, Reaction): Coded Allergies: amoxicillin (Unverified Allergy, Severe, 08/22/17) Reported Meds & Prescriptions Reported Meds & Active Scripts Active Hydrocodone-Acetaminophen 7.5 Mg-325 Mg Tab 1 Tab PO Q6H PRN 3 Days Oxygen tank (Oxygen) 1 Ea Tank 2 Liter NATALIIA.CANULA CONTINUOUS Oxygen Concentrator Portable Gaseous 2 L/min via Nasal Cannula Continuous For 99 months Pantoprazole (Pantoprazole Sodium) 40 Mg Tab 40 Mg PO HS Xanax (Alprazolam) 0.25 Mg Tab 0.25 Mg PO Q8H PRN Reported Vasotec (Enalapril Maleate) 5 Mg Tab 5 Mg PO DAILY Prednisone 20 Mg Tab 20 Mg PO DAILY Review of Systems Except as stated in HPI: all other systems reviewed are Neg General / Constitutional: No: Fever, Chills Eyes: Positive: Diploplia, Blurred Vision, No: Drainage, Pain HENT: Positive: Neck Pain, No: Headaches, Neck Stiffness Cardiovascular: No: Chest Pain or Discomfort, Palpitations Respiratory: No: Cough, Shortness of Breath Gastrointestinal: No: Nausea, Vomiting, Abdominal Pain Genitourinary: Positive: Decreased Urinary Output, No: Dysuria Musculoskeletal: Positive: Pain (Pain from the neck down to her feet "everywhere"), No: Myalgias, Weakness Skin: No Rash, No Lesions Neurologic: Positive: Dizziness, No: Weakness, Headache Physical Exam Narrative GENERAL: Well-developed well-nourished female in no acute respiratory distress. SKIN: Focused skin assessment warm/dry. HEAD: Atraumatic. Normocephalic. EYES: No scleral icterus. No injection or drainage. ENT: No nasal bleeding or discharge. Mucous membranes pink and dry. NECK: Trachea midline. Supple. No nuchal rigidity. CARDIOVASCULAR: Regular rate and rhythm. No murmur appreciated. RESPIRATORY: No accessory muscle use. Clear to auscultation. Breath sounds equal bilaterally. GASTROINTESTINAL: Abdomen soft, non-tender, nondistended. MUSCULOSKELETAL: No obvious deformities. No clubbing. No cyanosis. No edema. NEUROLOGICAL: Awake and alert. No nystagmus. Patient does have right-sided tongue deviation. Motor grossly within normal limits. Normal speech. PSYCHIATRIC: Appropriate mood and affect; insight and judgment normal. Data Data Last Documented VS Vital Signs Date Time Temp Pulse Resp B/P (MAP) Pulse Ox O2 Delivery O2 Flow Rate FiO2 08/22/17 14:34 97 18 150/82 (104) 98 08/22/17 13:52 Room Air 08/22/17 12:27 97.8 Orders Orders Complete Blood Count With Diff (08/22/17 12:59) Comprehensive Metabolic Panel (08/22/17 12:59) Prothrombin Time / Inr (Pt) (08/22/17 12:59) Act Partial Throm Time (Ptt) (08/22/17 12:59) Urinalysis - C+S If Indicated (08/22/17 12:59) Iv Access Insert/Monitor (08/22/17 12:59) Ecg Monitoring (08/22/17 12:59) Oximetry (08/22/17 12:59) Carcinoembryonic Antigen (Cea) (08/22/17 12:59) Ldh Serum (08/22/17 12:59) Mri Brain W&W/O Contrast (08/22/17 12:59) Morphine Inj (Morphine Inj) (08/22/17 13:00) Prochlorperazine Inj (Compazine Inj) (08/22/17 13:00) Lorazepam Inj (Ativan Inj) (08/22/17 14:30) Gadodiamide Pf Inj (Omniscan Pf Inj) (08/22/17 12:24) Admit To Inpatient (08/22/17 ) Vital Signs (Adult) Q4H (08/22/17 15:42) Neuro Checks Q4H (08/22/17 15:42) Activity Oob With Assistance (08/22/17 15:42) Intake + Output CHAN.QSHIFT (08/22/17 15:42) Diet Regular Basic (08/22/17 Dinner) Sodium Chlor 0.9% 1000 Ml Inj (Ns 1000 M (08/22/17 15:42) Sodium Chloride 0.9% Flush (Ns Flush) (08/22/17 15:45) Sodium Chloride 0.9% Flush (Ns Flush) (08/22/17 21:00) Acetaminophen (Tylenol) (08/22/17 15:45) Ondansetron Inj (Zofran Inj) (08/22/17 15:45) Comprehensive Metabolic Panel (08/23/17 06:00) Complete Blood Count With Diff (08/23/17 06:00) Scd Bilateral/Knee High CHAN.BID (08/22/17 15:42) Naloxone Inj (Narcan Inj) (08/22/17 15:45) Docusate Sodium-Senna (Delphine-Colace) (08/22/17 21:00) Magnesium Hydroxide Liq (Milk Of Magnesi (08/22/17 15:45) Sennosides (Senokot) (08/22/17 15:45) Bisacodyl Supp (Dulcolax Supp) (08/22/17 15:45) Lactulose Liq (Lactulose Liq) (08/22/17 15:45) Inpatient Certification (08/22/17 ) Oxycodone-Acetamin 10-325 Mg (Percocet 1 (08/22/17 15:45) Oxycodone-Acetamin 7.5-325 Mg (Percocet (08/22/17 15:45) Hydromorphone Pf Inj (Dilaudid Pf Inj) (08/22/17 15:45) Alprazolam (Xanax) (08/22/17 16:00) Enalapril (Vasotec) (08/23/17 09:00) Pantoprazole (Protonix) (08/22/17 21:00) Labs Laboratory Tests Test 08/22/17 13:28 08/22/17 14:30 White Blood Count 7.5 TH/MM3 Red Blood Count 3.34 MIL/MM3 Hemoglobin 11.0 GM/DL Hematocrit 31.9 % Mean Corpuscular Volume 95.4 FL Mean Corpuscular Hemoglobin 33.1 PG Mean Corpuscular Hemoglobin Concent 34.7 % Red Cell Distribution Width 16.3 % Platelet Count 232 TH/MM3 Mean Platelet Volume 7.1 FL Neutrophils (%) (Auto) 74.1 % Lymphocytes (%) (Auto) 14.6 % Monocytes (%) (Auto) 9.9 % Eosinophils (%) (Auto) 0.5 % Basophils (%) (Auto) 0.9 % Neutrophils # (Auto) 5.5 TH/MM3 Lymphocytes # (Auto) 1.1 TH/MM3 Monocytes # (Auto) 0.7 TH/MM3 Eosinophils # (Auto) 0.0 TH/MM3 Basophils # (Auto) 0.1 TH/MM3 CBC Comment DIFF FINAL Differential Comment Prothrombin Time 10.8 SEC Prothromb Time International Ratio 1.1 RATIO Activated Partial Thromboplast Time 25.1 SEC Blood Urea Nitrogen 30 MG/DL Creatinine 1.28 MG/DL Random Glucose 107 MG/DL Total Protein 8.4 GM/DL Albumin 4.0 GM/DL Calcium Level 10.0 MG/DL Alkaline Phosphatase 85 U/L Aspartate Amino Transf (AST/SGOT) 16 U/L Alanine Aminotransferase (ALT/SGPT) 28 U/L Lactate Dehydrogenase 265 U/L Total Bilirubin 0.5 MG/DL Sodium Level 134 MEQ/L Potassium Level 3.4 MEQ/L Chloride Level 99 MEQ/L Carbon Dioxide Level 24.6 MEQ/L Anion Gap 10 MEQ/L Estimat Glomerular Filtration Rate 42 ML/MIN Carcinoembryonic Antigen 3064.6 NG/ML MDM Medical Decision Making Medical Screen Exam Complete: Yes Emergency Medical Condition: Yes Differential Diagnosis Intracranial metastatic disease versus CVA versus metabolic derangement Narrative Course This is a 62-year-old female with an unfortunate history of stage IV adenocarcinoma of the lung with recent pericardial effusion secondary to this disease, who presents from Dr. Quintanilla's office for admission. Patient has new onset of pain from the neck down over her entire body to her feet. She also has a right tongue deviation. Concern here is that she may have a brainstem mass. MRI has been ordered with and without contrast. Labs show an elevated BUN and creatinine which is consistent with mild volume depletion/dehydration. The [facility] will [facility] the patient to her service. Please note that the patient's CEA marker was greater than 3000. Her LDH was also elevated. Diagnosis Primary Impression: New onset diffuse pain Additional Impressions: Acute kidney injury Dysphagia Right tongue deviation Admitting Information Admitting Physician Requests: Admit Randy Plunkett MD Aug 22, 2017 13:32
[2017-08-22 13:47] LABS: AUTOMATED NEUTROPHIL # 5.5 TH/MM3 (1.8-7.7); BASOPHIL # 0.1 TH/MM3 (0-0.2); BASOPHIL % 0.9 % (0.0-2.0); EOSINOPHIL % 0.5 % (0.0-4.0); HEMATOCRIT 31.9 % (35.0-46.0); LYMPH % 14.6 % (9.0-44.0); LYMPHOCYTE # 1.1 TH/MM3 (1.0-4.8); MEAN CELL VOLUME 95.4 FL (80.0-100.0); MEAN CORPUSCULAR HEMOGLOBIN 33.1 PG (27.0-34.0); MEAN CORPUSCULAR HGB CONC 34.7 % (32.0-36.0); MEAN PLATELET VOLUME 7.1 FL (7.0-11.0); MONO % 9.9 % (0.0-8.0); MONOCYTE # 0.7 TH/MM3 (0-0.9); NEUT % 74.1 % (16.0-70.0); PLATELET COUNT 232 TH/MM3 (150-450); RED BLOOD COUNT 3.34 MIL/MM3 (4.00-5.30); RED CELL DISTRIBUTION WIDTH 16.3 % (11.6-17.2); WHITE BLOOD COUNT 7.5 TH/MM3 (4.0-11.0)
[2017-08-22 13:59] LABS: INTERNATIONAL NORMALIZED RATIO 1.1 RATIO; PROTHROMBIN TIME - PATIENT 10.8 SEC (9.8-11.6)
[2017-08-22 14:27] LABS: ALKALINE PHOSPHATASE 85 U/L (45-117); ALT (GPT) 28 U/L (10-53); AST (GOT) 16 U/L (15-37); BICARBONATE 24.6 MEQ/L (21.0-32.0); BLOOD UREA NITROGEN 30 MG/DL (7-18); CHLORIDE 99 MEQ/L (98-107); CREATININE 1.28 MG/DL (0.50-1.00); GLOMERULAR FILTRATION RATE 42 ML/MIN (>89); GLUCOSE,RANDOM 107 MG/DL (74-106); LDH SERUM 265 U/L (84-246); SODIUM (NA) 134 MEQ/L (136-145); TOTAL BILIRUBIN ADULT 0.5 MG/DL (0.2-1.0); TOTAL PROTEIN 8.4 GM/DL (6.4-8.2)
[2017-08-22] MEDS ORDERED: LORazepam 2 MG/ML VIAL IV PUSH ONE (14:30)
[2017-08-22] MEDS ORDERED: oxyCODONE/ACETAMINOPHEN 7.5 MG/325 MG TAB PO PRN (15:45)
[2017-08-22] MEDS ORDERED: SENNOSIDES 8.6 MG TAB PO PRN (15:45)
[2017-08-22] MEDS ORDERED: BISACODYL 10 MG SUPP RECTAL PRN (15:45)
[2017-08-22] MEDS ORDERED: HYDROmorphone HCL PF 1 MG/ML VIAL IV PUSH PRN (15:45)
[2017-08-22] MEDS ORDERED: MAGNESIUM HYDROXIDE SUSP 30 ML CUP PO PRN ×2 (15:45→19:30)
[2017-08-22] MEDS ORDERED: ACETAMINOPHEN 325 MG TAB PO PRN (15:45)
[2017-08-22] MEDS ORDERED: ONDANSETRON HCL 4 MG/2 ML VIAL IVP PRN (15:45)
[2017-08-22] MEDS ORDERED: oxyCODONE/ACETAMINOPHEN 10 MG/325 MG TAB PO PRN (15:45)
[2017-08-22] MEDS ORDERED: NALOXONE HCL 0.4 MG/ML AMP IV PUSH PRN (15:45)
[2017-08-22] MEDS ORDERED: LACTULOSE SYRUP 20 GM/30 ML CUP PO PRN (15:45)
[2017-08-22] MEDS ORDERED: ALPRAZolam 0.25 MG TAB PO PRN (16:00)
--- NOTE | 2017-08-22 16:12 | RADRPT ---
EXAM DATE/TIME: 08/22/2017 14:55 [facility] COMPARISON: MRI BRAIN W & W/O CONTRAST, November 01, 2016, 22:01. INDICATIONS : Mass. Lung cancer. CONTRAST: 14 cc Omniscan (gadodiamide) IV MEDICAL HISTORY : Carcinoma, lung. SURGICAL HISTORY : Lung biopsy, tooth pulled, port placement and cyst removed. ENCOUNTER: Subsequent ACUITY: 2 weeks PAIN SCORE: 0/10 LOCATION: Head. TECHNIQUE: Multiplanar, multisequence MRI of the brain was performed both prior to and following the administrat ion of paramagnetic contrast. FINDINGS: Motion artifact degrades some of the sequences. CEREBRUM: Atrophy. The ventricles are normal for age. No evidence of midline shift, mass lesion, hemorrhage or acute infarction. No extraaxial fluid collections are seen. The pituitary gland and suprasellar ci ventura are normal in configuration. WHITE MATTER: No significant signal abnormalities are seen in the white matter. POSTERIOR FOSSA: A 3 mm rounded area of high flair signal involving the inferior right cerebellar hemisphere correlati ng to the area of abnormal enhancement The cerebellum and brainstem are intact. The 4th ventricle is midline. The cerebellopontine angle is unremarkable. The cerebellar tonsils are normal in position. DIFFUSION IMAGING: No focal areas of restricted diffusion are seen. No evidence of acute infarction. EXTRACRANIAL: The visualized portions of the orbits and paranasal sinuses are unremarkable. POST-CONTRAST: There is a 3 mm rounded area of enhancement involving the inferior right cerebellar hemisphere on the axial sequence. I do not see this on the coronal sequence. I see no surrounding edema. No other area s of abnormal enhancement observed. CONCLUSION: 1. There is a 3 mm rounded focus of abnormal signal involving the right cerebellar hemisphere. This i s a new finding from the prior exam and is worrisome for a tiny intraparenchymal metastasis. 2. Atrophy. Fernando Toribio Jr., MD on August 22, 2017 at 16:04 Board Certified Radiologist. This report was verified electronically.
[2017-08-22] MEDS: SODIUM CHLOR 0.9% 1000 ML INJ 1,000 ML IV SCH (16:37)
[2017-08-22] MEDS ORDERED: MORPHINE SULFATE 4 MG/ML INJ IV PUSH ONE (16:45)
[2017-08-22] MEDS: predniSONE 20 MG TAB PO SCH (18:07)
[2017-08-22] MEDS: RESP: ALBUTEROL 2.5 MG/3 ML NEB (SCH) INH (19:11)
--- NOTE | 2017-08-22 19:13 | HHI.HP ---
HPI Service [facility] Primary Care Physician Srini Quintanilla MD Admission Diagnosis new onset diffuse pain, right tongue deviation, stage IV adenocarcin Diagnoses: Travel History International Travel<30 Days: No Contact w/Intl Traveler <30 Da: No Traveled to Known Affected Are: No History of Present Illness Patient is a 62-year-old female with past medical history adenocarcinoma of the lungs, hypertension, chronic pain, anxiety, GERD was sent from her oncologist's office for admission and further evaluation. Patient states she's been having difficulty talking and not feeling well 2 weeks after radiation therapy which were 2 weeks after Thanksgiving. She also states that she has been having worsening shortness of breath and trouble swallowing both solids and liquids but mainly liquids. On Saturday she felt dizzy and on Saturday she started experiencing double vision. She experiences pain everywhere which she rates at 9 out of 10 in however today after getting pain medication the pain has come down to 7 out of 10. Oxycodone gives her dry heaves. Her shortness of breath comes and goes however it is worse with ambulation. She has been using her home oxygen occasionally. She has been having epigastric pain with some chest pain with the driving heaving. Currently she is chest pain-free. She admits to constipation. She denies any fevers or chills, any burning with urination. She was doing okay with using her walker as far as ambulation however today she had to use a wheelchair due to severe weakness. Pt is known to Dr. Quintanilla and Dr. Mccray Review of Systems Except as stated in HPI: all other systems reviewed are Neg Past Family Social History Past Medical History adenocarcinoma of the lungs s/p radiation, hypertension, chronic pain, anxiety, GERD Past Surgical History port placement pericardial window pilonidal cyst removal Reported Medications Reported Meds & Active Scripts Active Hydrocodone-Acetaminophen 7.5 Mg-325 Mg Tab 1 Tab PO Q6H PRN 3 Days Oxygen tank (Oxygen) 1 Ea Tank 2 Liter NATALIIA.CANULA CONTINUOUS Oxygen Concentrator Portable Gaseous 2 L/min via Nasal Cannula Continuous For 99 months Pantoprazole (Pantoprazole Sodium) 40 Mg Tab 40 Mg PO HS Xanax (Alprazolam) 0.25 Mg Tab 0.25 Mg PO Q8H PRN Reported Vasotec (Enalapril Maleate) 5 Mg Tab 5 Mg PO DAILY Prednisone 20 Mg Tab 20 Mg PO DAILY Allergies: Coded Allergies: amoxicillin (Unverified Allergy, Severe, 08/22/17) ondansetron (Verified Adverse Reaction, Severe, Nausea/Vomiting, 08/22/17) oxycodone (Verified Adverse Reaction, Severe, Nausea/Vomiting, 08/22/17) Family History mother was healthy father had DM Social History was a heavy smoker for 30+ years, quit 10 months ago drinks occasionally denies illegal drug use Physical Exam Vital Signs Vital Signs Date Time Temp Pulse Resp B/P (MAP) Pulse Ox O2 Delivery O2 Flow Rate FiO2 08/22/17 18:04 94 14 172/92 (118) 98 08/22/17 16:17 92 16 160/79 (106) 98 08/22/17 14:34 97 18 150/82 (104) 98 08/22/17 13:52 18 98 Room Air 08/22/17 12:27 97.8 97 20 165/100 (121) 97 Physical Exam GENERAL: appears uncomfortable, sitting up on bed SKIN: No rashes, ecchymoses or lesions. Cool and dry. HEAD: Atraumatic. Normocephalic. EYES: Pupils equal round and reactive. Extraocular motions intact. ENT: Nose without drainage. tongue deviated to the right. NECK: Trachea midline. supraclavicular lymphadenopathy palpated bilaterally left >right CARDIOVASCULAR: Regular rate and rhythm without murmurs RESPIRATORY: decreased breath sounds. faint crackles at the bases. no wheezing GASTROINTESTINAL: Abdomen soft, non-tender, nondistended. No guarding. MUSCULOSKELETAL: Extremities w 1+ edema. 4/5 muscle strength lower extremities R >L, moves upper extremities w no difficulty and has good shoulder shrug NEUROLOGICAL: Awake and alert. right tongue deviation Normal speech. Laboratory Laboratory Tests Test 08/22/17 13:28 08/22/17 14:30 White Blood Count 7.5 Red Blood Count 3.34 Hemoglobin 11.0 Hematocrit 31.9 Mean Corpuscular Volume 95.4 Mean Corpuscular Hemoglobin 33.1 Mean Corpuscular Hemoglobin Concent 34.7 Red Cell Distribution Width 16.3 Platelet Count 232 Mean Platelet Volume 7.1 Neutrophils (%) (Auto) 74.1 Lymphocytes (%) (Auto) 14.6 Monocytes (%) (Auto) 9.9 Eosinophils (%) (Auto) 0.5 Basophils (%) (Auto) 0.9 Neutrophils # (Auto) 5.5 Lymphocytes # (Auto) 1.1 Monocytes # (Auto) 0.7 Eosinophils # (Auto) 0.0 Basophils # (Auto) 0.1 CBC Comment DIFF FINAL Differential Comment Prothrombin Time 10.8 Prothromb Time International Ratio 1.1 Activated Partial Thromboplast Time 25.1 Blood Urea Nitrogen 30 Creatinine 1.28 Random Glucose 107 Total Protein 8.4 Albumin 4.0 Calcium Level 10.0 Alkaline Phosphatase 85 Aspartate Amino Transf (AST/SGOT) 16 Alanine Aminotransferase (ALT/SGPT) 28 Lactate Dehydrogenase 265 Total Bilirubin 0.5 Sodium Level 134 Potassium Level 3.4 Chloride Level 99 Carbon Dioxide Level 24.6 Anion Gap 10 Estimat Glomerular Filtration Rate 42 Carcinoembryonic Antigen 3064.6 Result Diagram: 08/22/17 1328 08/22/17 1328 Imaging Last Impressions Brain MRI 08/22/17 1259 Signed Impressions: Service Date/Time: July 14:55 - CONCLUSION: 1. There is a 3 mm rounded focus of abnormal signal involving the right cerebellar hemisphere. This is a new finding from the prior exam and is worrisome for a tiny intraparenchymal metastasis. 2. Atrophy. MD Randal Molina Jr.i VTE Risk Assessment Caprini VTE Risk Assessment: Mod/High Risk (score >= 2) Caprini Risk Assessment Model Point Value = 1 Point Value = 2 Point Value = 3 Point Value = 5 Age 41-60 Minor surgery BMI > 25 kg/m2 Swollen legs Varicose veins or History of unexplained or recurrent spontaneous Oral contraceptives or hormone replacement Sepsis (< 1 month) Serious lung disease, including pneumonia (< 1 month) Abnormal pulmonary function Acute myocardial infarction Congestive heart failure (< 1 month) History of inflammatory bowel disease Medical patient at bed rest Age 61-74 Arthroscopic surgery Major open surgery (> 45 min) Laparoscopic surgery (> 45 min) Malignancy Confined to bed (> 72 hours) Immobilizing plaster cast Central venous access Age >= 75 History of VTE Family history of VTE Factor V Leiden Prothrombin [id number] Lupus anticoagulant Anticardiolipin antibodies Elevated serum homocysteine Heparin-induced thrombocytopenia Other congenital or acquired thrombophilia Stroke (< 1 month) Elective arthroplasty Hip, pelvis, or leg fracture Acute spinal cord injury (< 1 month) Prophylaxis Regimen Total Risk Factor Score Risk Level Prophylaxis Regimen 0-1 Low Early ambulation 2 Moderate Order ONE of the following: *Sequential Compression Device (SCD) *Heparin 5000 units SQ BID 3-4 Higher Order ONE of the following medications: *Heparin 5000 units SQ TID *Enoxaparin/Lovenox 40 mg SQ daily (WT < 150 kg, CrCl > 30 mL/min) *Enoxaparin/Lovenox 30 mg SQ daily (WT < 150 kg, CrCl > 10-29 mL/min) *Enoxaparin/Lovenox 30 mg SQ BID (WT < 150 kg, CrCl > 30 mL/min) AND/OR *Sequential Compression Device (SCD) 5 or more Highest Order ONE of the following medications: *Heparin 5000 units SQ TID (Preferred with Epidurals) *Enoxaparin/Lovenox 40 mg SQ daily (WT < 150 kg, CrCl > 30 mL/min) *Enoxaparin/Lovenox 30 mg SQ daily (WT < 150 kg, CrCl > 10-29 mL/min) *Enoxaparin/Lovenox 30 mg SQ BID (WT < 150 kg, CrCl > 30 mL/min) AND *Sequential Compression Device (SCD) Assessment and Plan Assessment and Plan Adenocarcinoma of the lung/Chronic pain: Pt known to Dr. Quintanilla. Dr. Quintanilla did put in orders for patient. I personally discussed the case w Dr. Quintanilla. Brain MRI shows 3mm rounded focus of abnormal signal involving the right cerebellar hemisphere. New finding worrisome for intraparenchymal metastasis. Pt didn't tolerate percocets due to severe nausea. I will add dilaudid IV prn. She doesn' t tolerate zofran, but did tolerate compazine, therefore will order it as needed for n/v. CEA level on admission was 3064. Pt on prednisone, protonix. miralax, whitley-colace and milk of mag prn constipation Difficulty swallowing solids and liquids/ GERD: I have consulted GI. I also consulted ST for a swallo eval. switch diet to a mechanical soft. on protonix hypertension: home regimen restarted, added vasotec IV prn. anxiety: home med resumed DVT proph: heparin SQ Code Status Full code, considering DNR but would like to speak w Dr. Quintanilla regarding this Discussed Condition With ER physician, Dr. Quintanilla and patient. Madonna Vasques MD Aug 22, 2017 19:13
[2017-08-22] MEDS ORDERED: PROCHLORPERAZINE INJ 10 MG/2 ML VIAL IV PUSH PRN (19:30)
[2017-08-22] MEDS: HEPARIN SODIUM - SQ 10,000 UNITS/ML VIAL SQ SCH (20:42)
[2017-08-22] MEDS: ENALAPRILAT 1.25 MG/ML VIAL IV PUSH PRN (20:42)
[2017-08-22] MEDS: ACETAMINOPHEN/HYDROcodone 325 MG/10 MG TAB PO PRN (20:43)
[2017-08-22] MEDS: SODIUM CHLORIDE 0.9% FLUSH 10 ML FLUSH IV FLUSH SCH (20:43)
[2017-08-22] MEDS ORDERED: PANTOPRAZOLE SOD 40 MG DELAYED RELEASE TAB PO SCH (21:00)
[2017-08-22] MEDS: DOCUSATE SODIUM 50 MG/SENNA 8.6 MG TAB PO SCH (21:00)
[2017-08-23] VITALS (12 sets, daily range): BP systolic 134–174; BP diastolic 77–106; PULSE 100–118; RESP 16–20; TEMP 97.1–98.2; O2SAT 90–99
[2017-08-23] MEDS: SODIUM CHLOR 0.9% 1000 ML INJ 1,000 ML IV SCH ×3 (05:02→23:00)
[2017-08-23] MEDS: ENALAPRILAT 1.25 MG/ML VIAL IV PUSH PRN (06:46)
[2017-08-23 07:50] LABS: AUTOMATED NEUTROPHIL # 5.2 TH/MM3 (1.8-7.7); BASOPHIL # 0.1 TH/MM3 (0-0.2); BASOPHIL % 1.3 % (0.0-2.0); EOSINOPHIL % 0.1 % (0.0-4.0); HEMATOCRIT 30.9 % (35.0-46.0); HEMOGLOBIN 10.7 GM/DL (11.6-15.3); LYMPHOCYTE # 0.5 TH/MM3 (1.0-4.8); MEAN CELL VOLUME 95.7 FL (80.0-100.0); MEAN CORPUSCULAR HEMOGLOBIN 33.2 PG (27.0-34.0); MEAN CORPUSCULAR HGB CONC 34.7 % (32.0-36.0); MEAN PLATELET VOLUME 7.1 FL (7.0-11.0); MONO % 6.4 % (0.0-8.0); MONOCYTE # 0.4 TH/MM3 (0-0.9); NEUT % 84.2 % (16.0-70.0); PLATELET COUNT 213 TH/MM3 (150-450); RED BLOOD COUNT 3.23 MIL/MM3 (4.00-5.30); RED CELL DISTRIBUTION WIDTH 16.5 % (11.6-17.2); WHITE BLOOD COUNT 6.2 TH/MM3 (4.0-11.0)
[2017-08-23] MEDS: POLYETHYLENE GLYCOL 17 GM PKG PO SCH (08:10)
[2017-08-23] MEDS: SODIUM CHLORIDE 0.9% FLUSH 10 ML FLUSH IV FLUSH SCH ×2 (08:10→21:00)
[2017-08-23] MEDS: DOCUSATE SODIUM 50 MG/SENNA 8.6 MG TAB PO SCH ×3 (08:10→21:00)
[2017-08-23] MEDS: RESP: ALBUTEROL 2.5 MG/3 ML NEB (SCH) INH ×4 (08:10→20:55)
[2017-08-23] MEDS: predniSONE 20 MG TAB PO SCH (08:21)
[2017-08-23] MEDS: ENALAPRIL MALEATE 5 MG TAB PO SCH (08:21)
[2017-08-23] MEDS: ACETAMINOPHEN/HYDROcodone 325 MG/10 MG TAB PO PRN ×2 (08:22→12:09)
--- NOTE | 2017-08-23 08:33 | MB ---
cc: RODRIGUEZARTURO DATE OF CONSULTATION 08/22/2017 REASON FOR CONSULTATION 62-year female with progressive adenocarcinoma of the lung with uncontrolled diffuse pain, difficulty swallowing, instability of gait with fariba ataxia. PATIENT PROFILE The patient is a 62-year-old female who I originally saw on November 15, 2016. She is and has three children. She had a history of smoking two packs of cigarettes per day for 30 years. Alcohol intake was excessive in the past She was born in [place] and lives in [place]. 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 Her works for the [employer] for [employer]. Prior to her illness, she enjoyed gardening and reading. HISTORY OF PRESENT ILLNESS The patient is a 62-year-old female with a long-standing history of consuming at least two packs of cigarettes a day for 30 years as well as excessive alcohol intake. She developed shortness of breath and pain in the left ear. 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 She went to [facility] due to worsening shortness of breath. On 10/31/2016, she had a CT of the thorax and was found to have a 4.1 cm mass in the left upper lobe with extensive mediastinal and hilar disease, as well as a moderate pericardial effusion. She required a pericardial window on 11/02/2016. She was found to have metastatic poorly differentiated adenocarcinoma involving the pericardium, as well as a positive cytology. She had several small lymph nodes in the upper abdomen on a CT scan of the abdomen. She was ALK and EGFR negative, PDL staining was less than 1%. She was initially treated with carboplatin and Taxol, but developed an immediate severe allergic to the Taxol and the regimen was discontinued. She then was treated with carbo, Alimta and Avastin and had an excellent response with minimal residual disease. She then received consolidative radiation therapy to the area in the lung where she had residual disease. Immediately following the radiation, her condition worsened with increasing weakness, shortness of breath and generalized achiness. She was found to have progressive disease with a rising CEA and she developed adenopathy in the supraclavicular area as well as a left cardiophrenic angle and gastroesophageal junction. She has been seen by pulmonology and cardiology. She remains very ill. She was treated with the nivolumab on one occasion with the date being 08/01/2017. She subsequently developed increasing pain throughout the entire bony skeleton. She has had extensive evaluation including a recent visit to the emergency room. It has not been obvious as to why she is having the pain. Today she came in with her . She indicated she could not swallow, and is having trouble getting liquids and solids down and that she retches where the food would get stuck and then come up. Her pain was not controlled with Lortab. She felt that she was in agony. She is having trouble walking and when she arrived in a wheelchair, she needed assistance in getting up onto the examining table. It is very apparent that she was deteriorating rapidly and could not proceed with outpatient evaluation. PAST SURGICAL HISTORY 1. Biopsy floor of mouth 11/01/2016 revealing squamous cell Carcinoma. 2. Ptxoha-Z-Zlwz placement 3. Pericardial window 11/02/2016. PAST MEDICAL HISTORY 1. Diagnosis of stage IV adenocarcinoma of the lung with pericardial effusion and pericardial tamponade. 2. Treatment with carboplatin on Alimta. 3. Consolidative radiation therapy to the chest completed 06/14/2079 consisting of [address] Mccray. ALLERGIES AMOXICILLIN RESULTING IN ASTHMA, SHORTNESS OF BREATH, PACLITAXEL CAUSING ACUTE SHORTNESS OF BREATH. THE PATIENT HAS NOT TOLERATED PERCOCET. MEDICATIONS PRIOR TO ADMISSION 1. Protonix 2. Symbicort 3. Vasotec 5 mg a day 4. ? Inderal 20 b.i.d. 5. Xanax p.r.n. FAMILY HISTORY Noncontributory REVIEW OF SYSTEMS The patient reports double vision and when I ask her to look at me, she says at times she sees two or three images. No problems with hearing. She does not specifically have chest pain, but she hurts all over including her chest. She is short of breath with minimal activity and leaning and bending forward is difficult. GI: She has difficulty swallowing. Liquids and solids do not get down. She will retch and bring them up. : No dysuria or frequency. MUSCULOSKELETAL: Generalized diffuse bone pain. NEUROLOGIC: Generalized weakness, difficulty swallowing and increasing problems with gait. PSYCHIATRIC: Worsening depression. PHYSICAL EXAM The patient appears acutely ill. When I examined her this afternoon, she was in a wheelchair. VITAL SIGNS: Her blood pressure was 140/80, respiratory rate was 18, pulse was 100. She was afebrile. HEAD: Normocephalic. EYES, EARS, NOSE AND THROAT: Sclerae and conjunctivae normal. Oropharynx, no thrush. There is left supraclavicular adenopathy which is tender. HEART: Regular rhythm. LUNGS: Clear. ABDOMEN: Soft. No hepatosplenomegaly or masses. EXTREMITIES: Trace edema. MUSCULOSKELETAL: Some mild diffuse tenderness but nothing specific. NEUROLOGIC EXAMINATION: I had her get out of the chair and walk, gait was very unsteady. She needed help getting up on the exam table. When she stuck her tongue out, it was not straight, it went off to the side. Eye movements appear intact. I could not identify focal, but only generalized weakness. LABORATORY TESTS Hemoglobin 11, white count 7500, platelets 232,000. PT/PTT are normal lytes, BUN, creatinine, notable for LDH of 265, creatinine 1.28, BUN is 30. Liver function tests are normal. A CEA is 3064. ASSESSMENT This is a 62-year female with rapidly progressive stage IV adenocarcinoma of the lung. She had an excellent response to carboplatin and Alimta. She completed consolidative radiation and then fell apart. She now has progressive neurologic problems. She has instability of gait. She has difficulty swallowing. When her tongue protrudes it is not midline. She complains of double vision. MRI of the brain has been done this evening. I reviewed the images and report and surprisingly it is not that helpful. She has a 3 mm rounded area of high flare involving the inferior right cerebellar hemisphere. This would not be enough to explain her current problems. She also has atrophy. Her laboratory studies are unrevealing except for a recent sed rate greater than 140 on 08/15/2017 and a CEA which is rising rapidly. On 08/15, it was 2455, on 08/22 it is 3064. There has been a steady rise since 05/13/2017 when it was 735. I believe this is indicative of progression of disease and her disease explains her deterioration. PLAN 1. I have requested a neurology consult and a spinal tap. 2. I have requested GI evaluation for upper endoscopy because of the difficulty swallowing. 3. will continue prednisone. I gave this to her because of the generalized aches and the high sed rate. I do not think that this is helping. 4. Appropriate pain medications. 5. She indicated that she became ill after the nivolumab, but it does not appear that this was caused by one single injection of nivolumab administered on 08/01/2017. I believe this is due to her progression of tumor. If she continues to progress at this rate, she does not have long to live. One could consider a second line chemotherapy regimen such as Taxotere and ramucirumab. MD RADHA Voss/NATALYA /6:51 PM /7:44 AM JEY
[2017-08-23 08:47] LABS: ALBUMIN 3.8 GM/DL (3.4-5.0); AST (GOT) 19 U/L (15-37); BICARBONATE 24.9 MEQ/L (21.0-32.0); BLOOD UREA NITROGEN 30 MG/DL (7-18); CALCIUM 9.7 MG/DL (8.5-10.1); CHLORIDE 103 MEQ/L (98-107); CREATININE 1.11 MG/DL (0.50-1.00); GLOMERULAR FILTRATION RATE 50 ML/MIN (>89); GLUCOSE,RANDOM 117 MG/DL (74-106); SODIUM (NA) 137 MEQ/L (136-145)
[2017-08-23 08:48] LABS: ALT (GPT) 28 U/L (10-53)
[2017-08-23 08:50] LABS: ALKALINE PHOSPHATASE 81 U/L (45-117); TOTAL BILIRUBIN ADULT 0.5 MG/DL (0.2-1.0); TOTAL PROTEIN 8.1 GM/DL (6.4-8.2)
[2017-08-23] MEDS: HEPARIN SODIUM - SQ 10,000 UNITS/ML VIAL SQ SCH ×2 (09:00→21:57)
--- NOTE | 2017-08-23 09:23 | PD.RAD ---
Post Procedure Progress Note Pre Procedure Diagnosis: (1) Lung mass Post Procedure Diagnosis: (1) Lung mass Procedure Date: Aug 23, 2017 Supervising Radiologist: Clint Ojeda Estimated blood loss: none Plan of Activity Patient to Unit: Nursing Unit Patient Condition: Poor Additional Comments: LP complete without difficulty CSF was clear Opening pressure 18 Full dictated report to follow See PACS Report for procedural detail/treatment Clint Ojeda MD Aug 23, 2017 09:23
--- NOTE | 2017-08-23 09:26 | PD.CONS ---
HPI History of Present Illness This is a 62 year old female who came into the hospital on 08/22/17 with dysphasia and hoarseness. Onset of symptoms was approximately 5 days ago. Patient did note some dizziness 2-3 days ago some nausea, decreased appetite, dry heaves, and a history of chronic constipation due to her opiates. Patient is awake and able to answer simple questions but appears to be very anxious and nervous over her current hospitalization and pending procedures. Labs show hemoglobin 10.7, hematocrit 30.9, BUN 30, creatinine 1.28. Patient has a significant history of adenocarcinoma of the lungs and is currently taking no radiation or chemotherapy. She denies any abdominal pain, does note some epigastric tenderness on light palpation. According to the patient no history of previous EGD or colonoscopy. (Yaquelin Hidalgo) PFSH Past Medical History adenocarcinoma of the lungs s/p radiation, hypertension, chronic pain, anxiety, GERD Per the record Past Surgical History port placement pericardial window pilonidal cyst removal (Yaquelin Hidalgo) Coded Allergies: amoxicillin (Unverified Allergy, Severe, 08/22/17) ondansetron (Verified Adverse Reaction, Severe, Nausea/Vomiting, 08/22/17) oxycodone (Verified Adverse Reaction, Severe, Nausea/Vomiting, 08/22/17) Medications Administered Medications Medications (Trade) Dose Ordered Sig/Constance Route PRN Reason Start Time Stop Time Status Last Admin Dose Admin Sodium Chloride 1,000 ml @ 75 mls/hr [id number] IV 08/22/17 15:42 08/22/17 16:37 Alprazolam (Xanax) 0.25 mg Q8H PRN PO anxiety 08/22/17 16:00 08/23/17 06:46 Enalapril Maleate (Vasotec) 5 mg DAILY PO 08/23/17 09:00 08/23/17 08:21 Pantoprazole Sodium (Protonix) 40 mg HS PO 08/22/17 21:00 08/22/17 20:41 Prednisone (Deltasone) 20 mg DAILY PO 08/22/17 18:00 08/23/17 08:21 Albuterol Sulfate (Albuterol Neb) 2.5 mg QID NEB INH 08/22/17 20:00 08/23/17 08:10 Acetaminophen/ Hydrocodone Bitart ([place] 10-325 Mg) 1 tab Q4H PRN PO PAIN SCALE 1 TO 10 08/22/17 17:45 08/23/17 08:22 Enalaprilat (Vasotec Inj) 1.25 mg Q6H PRN IV PUSH SBP>160, DBP>90 08/22/17 20:15 08/23/17 06:46 Heparin Sodium (Porcine) (Heparin Inj) 5,000 units Q12HR SQ 08/22/17 21:00 08/22/17 20:42 Family History mother was healthy father had DM Social History was a heavy smoker for 30+ years, quit 10 months ago drinks occasionally denies illegal drug use (Yaquelin Hidalgo) Review of Systems Constitutional: COMPLAINS OF: Fatigue Gastrointestinal: COMPLAINS OF: Constipation, Nausea, Difficulty Swallowing Psychiatric: COMPLAINS OF: Anxiety (Yaquelin Hidalgo) GI Exam Vitals I&O Vital Signs Date Time Temp Pulse Resp B/P (MAP) Pulse Ox O2 Delivery O2 Flow Rate FiO2 08/23/17 08:18 97.3 112 20 154/103 (120) 96 08/23/17 08:13 99 08/23/17 06:34 97.4 111 18 174/106 (128) 97 08/23/17 01:43 98.1 100 16 156/96 (116) 94 08/22/17 21:49 99 16 163/81 (108) 97 Room Air 08/22/17 20:16 97.7 96 15 173/98 (123) 96 Room Air 08/22/17 19:13 96 08/22/17 18:04 94 14 172/92 (118) 98 08/22/17 16:17 92 16 160/79 (106) 98 08/22/17 14:34 97 18 150/82 (104) 98 08/22/17 13:52 18 98 Room Air 08/22/17 12:27 97.8 97 20 165/100 (121) 97 I/O 08/22/17 08/22/17 08/22/17 08/23/17 08/23/17 08/23/17 07:00 15:00 23:00 07:00 15:00 23:00 Output Total 475 ml Balance -475 ml Output Urine Total 475 ml Imaging Last Impressions Brain MRI 1/25/18 1259 Signed Impressions: Service Date/Time: July 14:55 - CONCLUSION: 1. There is a 3 mm rounded focus of abnormal signal involving the right cerebellar hemisphere. This is a new finding from the prior exam and is worrisome for a tiny intraparenchymal metastasis. 2. Atrophy. Fernando Toribio Jr., MD Laboratory Test 08/22/17 13:28 08/22/17 14:30 08/23/17 07:14 White Blood Count 7.5 TH/MM3 6.2 TH/MM3 Red Blood Count 3.34 MIL/MM3 3.23 MIL/MM3 Hemoglobin 11.0 GM/DL 10.7 GM/DL Hematocrit 31.9 % 30.9 % Mean Corpuscular Volume 95.4 FL 95.7 FL Mean Corpuscular Hemoglobin 33.1 PG 33.2 PG Mean Corpuscular Hemoglobin Concent 34.7 % 34.7 % Red Cell Distribution Width 16.3 % 16.5 % Platelet Count 232 TH/MM3 213 TH/MM3 Mean Platelet Volume 7.1 FL 7.1 FL Neutrophils (%) (Auto) 74.1 % 84.2 % Lymphocytes (%) (Auto) 14.6 % 8.0 % Monocytes (%) (Auto) 9.9 % 6.4 % Eosinophils (%) (Auto) 0.5 % 0.1 % Basophils (%) (Auto) 0.9 % 1.3 % Neutrophils # (Auto) 5.5 TH/MM3 5.2 TH/MM3 Lymphocytes # (Auto) 1.1 TH/MM3 0.5 TH/MM3 Monocytes # (Auto) 0.7 TH/MM3 0.4 TH/MM3 Eosinophils # (Auto) 0.0 TH/MM3 0.0 TH/MM3 Basophils # (Auto) 0.1 TH/MM3 0.1 TH/MM3 CBC Comment DIFF FINAL DIFF FINAL Differential Comment Prothrombin Time 10.8 SEC Prothromb Time International Ratio 1.1 RATIO Activated Partial Thromboplast Time 25.1 SEC Blood Urea Nitrogen 30 MG/DL 30 MG/DL Creatinine 1.28 MG/DL 1.11 MG/DL Random Glucose 107 MG/DL 117 MG/DL Total Protein 8.4 GM/DL 8.1 GM/DL Albumin 4.0 GM/DL 3.8 GM/DL Calcium Level 10.0 MG/DL 9.7 MG/DL Alkaline Phosphatase 85 U/L 81 U/L Aspartate Amino Transf (AST/SGOT) 16 U/L 19 U/L Alanine Aminotransferase (ALT/SGPT) 28 U/L 28 U/L Lactate Dehydrogenase 265 U/L Total Bilirubin 0.5 MG/DL 0.5 MG/DL Sodium Level 134 MEQ/L 137 MEQ/L Potassium Level 3.4 MEQ/L 3.6 MEQ/L Chloride Level 99 MEQ/L 103 MEQ/L Carbon Dioxide Level 24.6 MEQ/L 24.9 MEQ/L Anion Gap 10 MEQ/L 9 MEQ/L Estimat Glomerular Filtration Rate 42 ML/MIN 50 ML/MIN Carcinoembryonic Antigen 3064.6 NG/ML Physical Examination HEENT: Pupils round and reactive to light; normocephalic; atraumatic; no jaundice. Throat dry, hoarseness NECK: Neck is supple, thin, no JVD CHEST: Chest diminished breath sounds CARDIAC: Regular rate and rhythm with no murmur gallop or rubs. ABDOMEN: Flat, Soft, nondistended, nontender; no hepatosplenomegaly; bowel sounds soft. EXTREMITIES: No clubbing, cyanosis, or edema. SKIN: Normal; no rash; no jaundice. FLUE DUST LABORER: Awake and able to answer simple questions, and oriented times three. (Yaquelin Hidalgo) Assessment and Plan Assessment: (1) Dysphagia ICD Codes: R13.10 - Dysphagia, unspecified Status: Acute Plan Nausea, continues to wax and wane, no current vomiting, and use with decreased appetite On her way now for lumbar puncture per attendings aggressive care Plan EGD with dilatation scheduled for noon today, procedure explained to patient and questions answered. Patient is currently anxious over procedure. Consents to be signed She is currently nothing by mouth Hold any blood thinners before procedure Please monitor for any acute bleeding and call GI Monitor hemoglobin and labs PPI IV Further recommendations will be based on patient's symptoms and plan of care, currently she is full code full aggressive care Patient has been seen by myself and Dr. Vargas, as done on his behalf (Yaquelin Hidalgo) Plan Patient was seen and examined, agree with above-noted, plan for upper endoscopy with evaluation and possible dilation if needed to plan on doing this today (Mikel Vargas MD) Yaquelin Hidalgo Aug 23, 2017 09:26 Mikel Vargas MD Aug 23, 2017 10:43
[2017-08-23 10:10] LABS: GLUCOSE,CSF LESS THAN 1 MG/DL (40-80)
[2017-08-23 10:17] LABS: SUPERNATE COLOR TUBE #1 SLIGHTLY XANTHOCHROM (CLEAR); TOTAL PROTEIN,CSF 379.9 MG/DL (15.0-45.0); VOLUME TUBE # 1 4.7 ML
[2017-08-23 10:45] LABS: WBC TUBE #4 130 /MM3 (0-10)
[2017-08-23 10:46] LABS: CSF HISTIOCYTES 4 %; CSF LYMPHOCYTES 66 %; CSF MONOCYTES 24 %; CSF NEUTROPHILS 6 %; RBC TUBE #4 30 /MM3
--- NOTE | 2017-08-23 10:51 | PD.PROCEDR ---
GI Procedure PROCEDURE PERFORMED [] Upper endoscopy with biopsy INDICATION FOR PROCEDURE Dysphagia, dyspepsia PROCEDURE: The procedure, risks and benefits were discussed with Ms. Webster and informed consent was obtained. Anesthesia sedated her with Diprivan. She was placed in the left lateral decubitus position. EGD: The Pentax videoscope was introduced through the oropharynx and advanced to the second portion of the duodenum under direct visualization. Retroflexion was performed in the stomach. Biopsy from the EG junction distal esophagus, biopsy from the antrum FINDINGS: Patient has short Araujo esophagus biopsy was done No stricture was seen so dilation was not performed Minimal gastritis biopsy was done No reason for the dysphagia SPECIMENS REMOVED: Distal esophagus, antrum COMPLICATIONS: None PLAN: May feed patient Protonix 40 mg daily Follow-up biopsy Chew food well No reason for dysphagia was seen on this procedure Mikel Vargas MD Aug 23, 2017 10:51
[2017-08-23] MEDS ORDERED: LIDOCAINE HCL 1% PF 5 ML SYRINGE OTHER ONE (12:00)
[2017-08-23] MEDS ORDERED: PROPOFOL 200 MG/20 ML AMP IV ONE (12:00)
[2017-08-23] MEDS: PANTOPRAZOLE SODIUM 40 MG VIAL IV PUSH SCH ×2 (12:28→21:57)
[2017-08-23] MEDS: ALPRAZolam 0.5 MG TAB PO PRN (12:36)
--- NOTE | 2017-08-23 12:39 | RADRPT ---
EXAM DATE/TIME: 08/23/2017 10:11 [place] COMPARISON: [id number] PLCMT, POWERPORT, W US, RIGHT, November 02, 2016, 9:50. INDICATIONS : Patient with a history of carcinomatis mengitis MEDICAL HISTORY : Adenocarcinoma of the lungs s/p radiation HTN Chronic pain Anxiety GERD SURGICAL HISTORY : Port placement Pericardial window Pilonidal cyst removal ENCOUNTER: Initial ACUITY: 2 weeks PAIN SCORE: 5/10 LOCATION: All over LUMBAR PUNCTURE TIME: 0911 hours FLUORO TIME: 0.5 minutes 1 ACCESS LEVEL: L3-4 OPENING PRESSURE: 17cm of water CLOSING PRESSURE: Not requested. FLUID: 20 cc of clear CSF was collected and sent to the laboratory for analysis. PROCEDURE : 1. Fluoroscopic guided lumbar puncture. 2. Recording of opening pressure. The risks, benefits and alternatives to the procedure were explained and verbal and written consent w as obtained. The site was prepped in sterile fashion. Full sterile technique was used, including ca p, mask, sterile gloves and gown and a large sterile sheet. Hand hygiene and 2% chlorhexidine and/or betadine/alcohol prep was utilized per protocol for cutaneous antisepsis. The skin and subcutaneous tissues were infiltrated with local anesthetic solution. With fluoroscopic guidance the lumbar thecal sac was punctured at the above level described above and the opening pressure was recorded. The above described fluid was removed without difficulty. The patient tolerated the procedure well and there were no complications. CONCLUSION: Uncomplicated fluoroscopically guided lumbar puncture with pressures as above. Clint Ojeda MD on August 23, 2017 at 12:37 Board Certified Radiologist. This report was verified electronically.
--- NOTE | 2017-08-23 13:37 | PD.ONC.PN ---
Subjective Subjective Remarks Afebrile overnight. Patient just back from LP and EGD. She continues to have pain "all over" and difficulty swallowing. and son at bedside. Patient states the Lortab is somewhat helpful but she still has a great deal of pain. Objective Data Date Time Temp Pulse Resp B/P (MAP) Pulse Ox O2 Delivery O2 Flow Rate FiO2 08/23/17 12:21 97.1 117 20 161/97 (118) 96 08/23/17 11:05 98.0 102 16 151/87 (108) 96 08/23/17 08:18 97.3 112 20 154/103 (120) 96 08/23/17 08:13 99 08/23/17 06:34 97.4 111 18 174/106 (128) 97 08/23/17 01:43 98.1 100 16 156/96 (116) 94 08/22/17 21:49 99 16 163/81 (108) 97 Room Air 08/22/17 20:16 97.7 96 15 173/98 (123) 96 Room Air 08/22/17 19:13 96 08/22/17 18:04 94 14 172/92 (118) 98 08/22/17 16:17 92 16 160/79 (106) 98 08/22/17 14:34 97 18 150/82 (104) 98 08/22/17 13:52 18 98 Room Air 08/23/17 08/23/17 08/23/17 07:00 15:00 23:00 Intake Total 300 ml Output Total 475 ml Balance -475 ml 300 ml Result Diagram: 08/23/1771308/23/17713 Laboratory Results Laboratory Tests Test 08/22/17 14:30 08/23/17 07:14 08/23/17 09:11 Carcinoembryonic Antigen 3064.6 NG/ML White Blood Count 6.2 TH/MM3 Red Blood Count 3.23 MIL/MM3 Hemoglobin 10.7 GM/DL Hematocrit 30.9 % Mean Corpuscular Volume 95.7 FL Mean Corpuscular Hemoglobin 33.2 PG Mean Corpuscular Hemoglobin Concent 34.7 % Red Cell Distribution Width 16.5 % Platelet Count 213 TH/MM3 Mean Platelet Volume 7.1 FL Neutrophils (%) (Auto) 84.2 % Lymphocytes (%) (Auto) 8.0 % Monocytes (%) (Auto) 6.4 % Eosinophils (%) (Auto) 0.1 % Basophils (%) (Auto) 1.3 % Neutrophils # (Auto) 5.2 TH/MM3 Lymphocytes # (Auto) 0.5 TH/MM3 Monocytes # (Auto) 0.4 TH/MM3 Eosinophils # (Auto) 0.0 TH/MM3 Basophils # (Auto) 0.1 TH/MM3 CBC Comment DIFF FINAL Differential Comment Blood Urea Nitrogen 30 MG/DL Creatinine 1.11 MG/DL Random Glucose 117 MG/DL Total Protein 8.1 GM/DL Albumin 3.8 GM/DL Calcium Level 9.7 MG/DL Alkaline Phosphatase 81 U/L Aspartate Amino Transf (AST/SGOT) 19 U/L Alanine Aminotransferase (ALT/SGPT) 28 U/L Total Bilirubin 0.5 MG/DL Sodium Level 137 MEQ/L Potassium Level 3.6 MEQ/L Chloride Level 103 MEQ/L Carbon Dioxide Level 24.9 MEQ/L Anion Gap 9 MEQ/L Estimat Glomerular Filtration Rate 50 ML/MIN CSF Volume (Tube 1) 4.7 ML CSF Supernatant Color (tube 1) SLIGHTLY XANTHOCHROM CSF Gross Blood (Tube 1) 0 CSF Volume (Tube 2) 5.0 ML CSF Supernatant Color (tube 2) SLIGHTLY XANTHOCHROM CSF Gross Blood (Tube 2) 0 CSF Volume (Tube 3) 4.8 ML CSF Supernatant Color (tube 3) SLIGHTLY XANTHOCHROM CSF Gross Blood (Tube 3) 0 CSF Volume (Tube 4) 4.8 ML CSF Supernatant Color (tube 4) SLIGHTLY XANTHOCHROM CSF Gross Blood (Tube 4) 0 CSF WBC (Tube 4) 130 /MM3 CSF RBC (Tube 4) 30 /MM3 CSF Neutrophils 6 % CSF Lymphocytes 66 % CSF Monocytes 24 % CSF Histiocytes 4 % CSF Glucose LESS THAN 1 MG/DL CSF Total Protein 379.9 MG/DL Culture Results Microbiology Date/Time Source Procedure Growth Status 08/23/17 09:11 Cerebral Spinal Fluid Lumbar Puncture Gram Stain - Final Resulted 08/23/17 09:11 Cerebral Spinal Fluid Lumbar Puncture CSF Culture Pending Resulted Imaging Studies Last 24 hours Impressions Lumbar Puncture Fluoroscopy 08/23/17 0600 Signed Impressions: Service Date/Time: Wednesday, August 23, 2017 10:11 - CONCLUSION: Uncomplicated fluoroscopically guided lumbar puncture with pressures as above. Clint Ojeda MD Administered Medications Medications (Trade) Dose Ordered Sig/Constance Route PRN Reason Start Time Stop Time Status Last Admin Dose Admin Sodium Chloride 1,000 ml @ 75 mls/hr [id number] IV 08/22/17 15:42 08/22/17 16:37 Enalapril Maleate (Vasotec) 5 mg DAILY PO 08/23/17 09:00 08/23/17 08:21 Prednisone (Deltasone) 20 mg DAILY PO 08/22/17 18:00 08/23/17 08:21 Albuterol Sulfate (Albuterol Neb) 2.5 mg QID NEB INH 08/22/17 20:00 08/23/17 08:10 Acetaminophen/ Hydrocodone Bitart ([place] 10-325 Mg) 1 tab Q4H PRN PO PAIN SCALE 1 TO 10 08/22/17 17:45 08/23/17 12:09 Enalaprilat (Vasotec Inj) 1.25 mg Q6H PRN IV PUSH SBP>160, DBP>90 08/22/17 20:15 08/23/17 06:46 Heparin Sodium (Porcine) (Heparin Inj) 5,000 units Q12HR SQ 08/22/17 21:00 08/22/17 20:42 Pantoprazole Sodium (Protonix Inj) 40 mg Q12HR IV PUSH 08/23/17 09:45 08/23/17 12:28 Alprazolam (Xanax) 0.5 mg Q8H PRN PO ANXIETY 08/23/17 12:30 08/23/17 12:36 Objective Remarks GENERAL: chronically ill appearing pleasant female, sitting up on side of bed, appears uncomfortable. SKIN: Warm and dry. HEAD: Normocephalic. EYES: No injection or drainage. NECK: Supple, trachea midline. CARDIOVASCULAR: Regular rate and rhythm RESPIRATORY: Breath sounds equal bilaterally. No accessory muscle use. GASTROINTESTINAL: Abdomen soft, non-tender, nondistended. MUSCULOSKELETAL: No cyanosis, or edema. NEURO: awake and alert. normal speech. moving extremities. +ataxia Assessment/Plan Assessment 62-year female with progressive adenocarcinoma of the lung admitted with intractable generalized pain, dysphagia and ataxia. --08/01--treated with Nivolumab --s/p Treatment with carboplatin on Alimta. + Consolidative radiation therapy to the chest x35 treatments Plan 1. dysphagia: s/p EGD This morning. EGD showed no stricture or other cause for the dysphagia. 2. Ataxia: s/p Lumbar puncture this AM in IR. 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 cytology pending. 3. Pain: add morphine 4mg IV pain level 6-8 and morphine 6mg IV pain level 9- 10. start long-acting Oramorph 15mg PO q 12 hours starting tonight. Amy Howard Aug 23, 2017 13:37
[2017-08-23] MEDS ORDERED: MORPHINE SULFATE 4 MG/ML INJ IV PUSH ONE (14:08)
--- NOTE | 2017-08-23 14:40 | HHI.PR ---
Subjective Remarks Follow-up for dysphagia and ataxia Patient seen after LP and EGD. She stated that she has pain from her neck down. Patient stated that this is happening for the past week. Deny any nausea or vomiting. No other complaints. Her son and at the bedside during the interview. Patient's nurse is also at the bedside during the interview. Objective Vitals Vital Signs Date Time Temp Pulse Resp B/P (MAP) Pulse Ox O2 Delivery O2 Flow Rate FiO2 08/23/17 12:21 97.1 117 20 161/97 (118) 96 08/23/17 11:05 98.0 102 16 151/87 (108) 96 08/23/17 08:18 97.3 112 20 154/103 (120) 96 08/23/17 08:13 99 08/23/17 06:34 97.4 111 18 174/106 (128) 97 08/23/17 01:43 98.1 100 16 156/96 (116) 94 08/22/17 21:49 99 16 163/81 (108) 97 Room Air 08/22/17 20:16 97.7 96 15 173/98 (123) 96 Room Air 08/22/17 19:13 96 08/22/17 18:04 94 14 172/92 (118) 98 08/22/17 16:17 92 16 160/79 (106) 98 I/O 08/22/17 08/22/17 08/22/17 08/23/17 08/23/17 08/23/17 07:00 15:00 23:00 07:00 15:00 23:00 Intake Total 300 ml Output Total 475 ml Balance -475 ml 300 ml Intake Other 300 ml Output Urine Total 475 ml Result Diagram: 08/23/17 0714 08/23/17 0714 Imaging Last Impressions Lumbar Puncture Fluoroscopy 08/23/17 0600 Signed Impressions: Service Date/Time: Wednesday, August 23, 2017 10:11 - CONCLUSION: Uncomplicated fluoroscopically guided lumbar puncture with pressures as above. Clint Ojeda MD Brain MRI 08/22/17 1259 Signed Impressions: Service Date/Time: July 14:55 - CONCLUSION: 1. There is a 3 mm rounded focus of abnormal signal involving the right cerebellar hemisphere. This is a new finding from the prior exam and is worrisome for a tiny intraparenchymal metastasis. 2. Atrophy. Fernando Toribio Jr., MD Objective Remarks GENERAL: in NAD CARDIOVASCULAR: Regular rate and rhythm without murmurs, gallops, or rubs. RESPIRATORY: Breath sounds equal bilaterally. No accessory muscle use. GASTROINTESTINAL: Abdomen soft, non-tender, nondistended. MUSCULOSKELETAL: No cyanosis, or edema. BACK: Nontender without obvious deformity. No CVA tenderness. NEURO strength and sensation grossly intact. Coordination is intact. Medications and IVs Current Medications Morphine Sulfate (Morphine Inj) 5 mg ONCE ONCE IV PUSH Last administered on at 13:25; Start 08/22/17 at 13:00; Stop 08/22/17 at 13:06; Status DC Prochlorperazine Edisylate (Compazine Inj) 10 mg ONCE ONCE IV PUSH Last administered on 08/22/17at 13:24; Start 08/22/17 at 13:00; Stop 08/22/17 at 13:06 ; Status DC Lorazepam (Ativan Inj) 1 mg ONCE ONCE IV PUSH Last administered on 08/22/17at 14:35; Start 08/22/17 at 14:30; Stop 08/22/17 at 14:31; Status DC Gadodiamide (Omniscan Pf Inj) 14 ml STK-MED ONCE IVCONTRAST Last administered on 08/22/17at 12:24; Start 08/22/17 at 12:24; Stop 08/22/17 at 15:10; Status DC Sodium Chloride 1,000 ml @ 75 mls/hr [id number] IV Last administered on at 16:37; Start 08/22/17 at 15:42 Sodium Chloride (NS Flush) 2 ml UNSCH PRN IV FLUSH FLUSH AFTER USING IV ACCESS ; Start 08/22/17 at 15:45 Sodium Chloride (NS Flush) 2 ml BID IV FLUSH ; Start 08/22/17 at 21:00 Acetaminophen (Tylenol) 650 mg Q4H PRN PO TEMP > 100.4; Start 08/22/17 at 15:45 Ondansetron HCl (Zofran Inj) 4 mg Q6H PRN IVP NAUSEA OR VOMITING; Start at 15:45; Stop 08/22/17 at 19:25; Status DC Naloxone HCl (Narcan Inj) 0.4 mg UNSCH PRN IV PUSH SEE LABEL COMMENTS; Start at 15:45 Senna/Docusate Sodium (Delphine-Colace) 1 tab BID PO ; Start 08/22/17 at 21:00 Magnesium Hydroxide (Milk Of Magnesia Liq) 30 ml Q12H PRN PO Mild constipation ; Start 08/22/17 at 15:45 Sennosides (Senokot) 17.2 mg Q12H PRN PO Moderate constipation; Start 08/22/17 at 15:45 Bisacodyl (Dulcolax Supp) 10 mg DAILY PRN RECTAL SEVERE CONSITIPATION; Start at 15:45 Lactulose (Lactulose Liq) 30 ml DAILY PRN PO SEVERE CONSITIPATION; Start at 15:45 Oxycodone/ Acetaminophen (Percocet 10-325 Mg) 1 tab Q4H PRN PO PAIN SCALE 6 TO 10; Start 08/22/17 at 15:45; Stop 08/22/17 at 17:41; Status DC Oxycodone/ Acetaminophen (Percocet 7.5-325 Mg) 1 tab Q4H PRN PO PAIN SCALE 3 TO 5; Start 08/22/17 at 15:45; Stop 08/22/17 at 17:41; Status DC Hydromorphone HCl (Dilaudid Pf Inj) 1 mg Q4H PRN IV PUSH BREAKTHROUGH PAIN; Start 08/22/17 at 15:45; Stop 08/23/17 at 14:03; Status DC Alprazolam (Xanax) 0.25 mg Q8H PRN PO anxiety Last administered on 08/23/17at 06 :46; Start 08/22/17 at 16:00; Stop 08/23/17 at 12:16; Status DC Enalapril Maleate (Vasotec) 5 mg DAILY PO Last administered on 08/23/17at 08:21 ; Start 08/23/17 at 09:00 Pantoprazole Sodium (Protonix) 40 mg HS PO Last administered on 08/22/17at 20:41 ; Start 08/22/17 at 21:00; Stop 08/23/17 at 09:36; Status DC Morphine Sulfate (Morphine Inj) 4 mg ONCE ONCE IV PUSH Last administered on 17:53; Start 08/22/17 at 16:45; Stop 08/22/17 at 16:46; Status DC Prochlorperazine Edisylate (Compazine Inj) 10 mg ONCE ONCE IV PUSH Last administered on 08/22/17at 17:53; Start 08/22/17 at 16:45; Stop 08/22/17 at 16:46 ; Status DC Prednisone (Deltasone) 20 mg DAILY PO Last administered on 08/23/17at 08:21; Start 08/22/17 at 18:00 Albuterol Sulfate (Albuterol Neb) 2.5 mg QID NEB INH Last administered on 08/23 08:10; Start 08/22/17 at 20:00 Acetaminophen/ Hydrocodone Bitart ([place] 10-325 Mg) 1 tab Q4H PRN PO PAIN SCALE 1 TO 5 Last administered on 08/23/17at 12:09; Start 08/22/17 at 17:45 Prochlorperazine Edisylate (Compazine Inj) 10 mg Q6H PRN IV PUSH NAUSEA OR VOMITING; Start 08/22/17 at 19:30 Polyethylene Glycol (Miralax) 17 gm DAILY PO ; Start 08/23/17 at 09:00 Magnesium Hydroxide (Milk Of Magnesia Liq) 30 ml DAILY PRN PO CONSTIPATION; Start 08/22/17 at 19:30; Status Cancel Senna/Docusate Sodium (Delphine-Colace) 1 tab DAILY PO ; Start 08/23/17 at 09:00 Enalaprilat (Vasotec Inj) 1.25 mg Q6H PRN IV PUSH SBP>160, DBP>90 Last administered on 08/23/17at 06:46; Start 08/22/17 at 20:15 Heparin Sodium (Porcine) (Heparin Inj) 5,000 units Q12HR SQ Last administered on 08/22/17at 20:42; Start 08/22/17 at 21:00 Pantoprazole Sodium (Protonix Inj) 40 mg Q12HR IV PUSH Last administered on at 12:28; Start 08/23/17 at 09:45 Alprazolam (Xanax) 0.5 mg Q8H PRN PO ANXIETY Last administered on 1/26/18at 12: 36; Start 08/23/17 at 12:30 Morphine Sulfate (Morphine Inj) 4 mg Q3H PRN IV PUSH pain6-8; Start 08/23/17 at 14:15 Morphine Sulfate (Morphine Inj) 6 mg Q3H PRN IV PUSH pain9-10; Start 08/23/17 at 14:15 Morphine Sulfate (Morphine Inj) 4 mg STAT ONCE IV PUSH ; Start 08/23/17 at 14: 08; Stop 08/23/17 at 14:09; Status DC A/P Assessment and Plan This is a 62-year-old female who is currently being treated for adenocarcinoma of the lungs who presented with ataxia and dysphagia Ataxia and dysphagia -EGD done today which showed the Araujo's esophagitis and gastritis status post biopsies taken but no strictures noted. Per GI patient can eat and recommend Protonix. Still pending swallow eval by speech therapist. -Most likely symptoms secondary to lung cancer metastasis. Adenocarcinoma of the lungs - per oncologist 08/01 treated with Nivolumab s/p Treatment with carboplatin on Alimta. + Consolidative radiation therapy to the chest x35 treatments -Brain MRI shows 3mm rounded focus of abnormal signal involving the right cerebellar hemisphere. New finding worrisome for intraparenchymal metastasis. Pt didn't tolerate percocets due to severe nausea. Patient is on IV Dilaudid the managed by oncologist. -LP fluid was clear with opening pressure of 18. cell count shows elevated protein, glucose less than one and WBC >100k concerned for carcinomatous meningitis. -Management per her oncologist. Acute on chronic pain -Secondary to metastatic disease. See treatment as above. Hypertension -May be exacerbated due to pain. We'll try to control pain. Home medication already restarted. Anxiety disorder -Continue home medication. DVT proph: heparin SQ Katrina Connell MD Aug 23, 2017 14:40
[2017-08-23] MEDS: MORPHINE SULFATE 2 MG/ML INJ IV PUSH PRN ×2 (18:32→21:59)
--- NOTE | 2017-08-23 19:01 | PD.ONC.PN ---
Subjective Subjective Remarks pain a little less. walking remains difficult Objective Data Date Time Temp Pulse Resp B/P (MAP) Pulse Ox O2 Delivery O2 Flow Rate FiO2 08/23/17 18:42 98.2 108 18 134/81 (98) 94 08/23/17 14:58 136/77 (96) 08/23/17 12:21 97.1 117 20 161/97 (118) 96 08/23/17 11:05 98.0 102 16 151/87 (108) 96 08/23/17 08:18 97.3 112 20 154/103 (120) 96 08/23/17 08:13 99 08/23/17 06:34 97.4 111 18 174/106 (128) 97 08/23/17 01:43 98.1 100 16 156/96 (116) 94 08/22/17 21:49 99 16 163/81 (108) 97 Room Air 08/22/17 20:16 97.7 96 15 173/98 (123) 96 Room Air 08/22/17 19:13 96 08/23/17 08/23/17 08/23/17 07:00 15:00 23:00 Intake Total 300 ml Output Total 475 ml Balance -475 ml 300 ml Result Diagram: 08/23/1714 08/23/17713 Laboratory Results Laboratory Tests Test 08/23/17 07:14 08/23/17 09:11 White Blood Count 6.2 TH/MM3 Red Blood Count 3.23 MIL/MM3 Hemoglobin 10.7 GM/DL Hematocrit 30.9 % Mean Corpuscular Volume 95.7 FL Mean Corpuscular Hemoglobin 33.2 PG Mean Corpuscular Hemoglobin Concent 34.7 % Red Cell Distribution Width 16.5 % Platelet Count 213 TH/MM3 Mean Platelet Volume 7.1 FL Neutrophils (%) (Auto) 84.2 % Lymphocytes (%) (Auto) 8.0 % Monocytes (%) (Auto) 6.4 % Eosinophils (%) (Auto) 0.1 % Basophils (%) (Auto) 1.3 % Neutrophils # (Auto) 5.2 TH/MM3 Lymphocytes # (Auto) 0.5 TH/MM3 Monocytes # (Auto) 0.4 TH/MM3 Eosinophils # (Auto) 0.0 TH/MM3 Basophils # (Auto) 0.1 TH/MM3 CBC Comment DIFF FINAL Differential Comment Blood Urea Nitrogen 30 MG/DL Creatinine 1.11 MG/DL Random Glucose 117 MG/DL Total Protein 8.1 GM/DL Albumin 3.8 GM/DL Calcium Level 9.7 MG/DL Alkaline Phosphatase 81 U/L Aspartate Amino Transf (AST/SGOT) 19 U/L Alanine Aminotransferase (ALT/SGPT) 28 U/L Total Bilirubin 0.5 MG/DL Sodium Level 137 MEQ/L Potassium Level 3.6 MEQ/L Chloride Level 103 MEQ/L Carbon Dioxide Level 24.9 MEQ/L Anion Gap 9 MEQ/L Estimat Glomerular Filtration Rate 50 ML/MIN CSF Volume (Tube 1) 4.7 ML CSF Supernatant Color (tube 1) SLIGHTLY XANTHOCHROM CSF Gross Blood (Tube 1) 0 CSF Volume (Tube 2) 5.0 ML CSF Supernatant Color (tube 2) SLIGHTLY XANTHOCHROM CSF Gross Blood (Tube 2) 0 CSF Volume (Tube 3) 4.8 ML CSF Supernatant Color (tube 3) SLIGHTLY XANTHOCHROM CSF Gross Blood (Tube 3) 0 CSF Volume (Tube 4) 4.8 ML CSF Supernatant Color (tube 4) SLIGHTLY XANTHOCHROM CSF Gross Blood (Tube 4) 0 CSF WBC (Tube 4) 130 /MM3 CSF RBC (Tube 4) 30 /MM3 CSF Neutrophils 6 % CSF Lymphocytes 66 % CSF Monocytes 24 % CSF Histiocytes 4 % CSF Glucose LESS THAN 1 MG/DL CSF Total Protein 379.9 MG/DL Culture Results Microbiology Date/Time Source Procedure Growth Status 08/23/17 09:11 Cerebral Spinal Fluid Lumbar Puncture Gram Stain - Final Resulted 08/23/17 09:11 Cerebral Spinal Fluid Lumbar Puncture CSF Culture Pending Resulted Imaging Studies Last 24 hours Impressions Lumbar Puncture Fluoroscopy 08/23/17 0600 Signed Impressions: Service Date/Time: Wednesday, August 23, 2017 10:11 - CONCLUSION: Uncomplicated fluoroscopically guided lumbar puncture with pressures as above. Clint Ojeda MD Administered Medications Medications (Trade) Dose Ordered Sig/Constance Route PRN Reason Start Time Stop Time Status Last Admin Dose Admin Sodium Chloride 1,000 ml @ 75 mls/hr [id number] IV 08/22/17 15:42 08/22/17 16:37 Lactulose (Lactulose Liq) 30 ml DAILY PRN PO SEVERE CONSITIPATION 08/22/17 15:45 08/23/17 15:09 Enalapril Maleate (Vasotec) 5 mg DAILY PO 08/23/17 09:00 08/23/17 08:21 Prednisone (Deltasone) 20 mg DAILY PO 08/22/17 18:00 08/23/17 08:21 Albuterol Sulfate (Albuterol Neb) 2.5 mg QID NEB INH 08/22/17 20:00 08/23/17 16:29 Acetaminophen/ Hydrocodone Bitart ([place] 10-325 Mg) 1 tab Q4H PRN PO PAIN SCALE 1 TO 5 08/22/17 17:45 08/23/17 12:09 Enalaprilat (Vasotec Inj) 1.25 mg Q6H PRN IV PUSH SBP>160, DBP>90 08/22/17 20:15 08/23/17 06:46 Heparin Sodium (Porcine) (Heparin Inj) 5,000 units Q12HR SQ 08/22/17 21:00 08/22/17 20:42 Pantoprazole Sodium (Protonix Inj) 40 mg Q12HR IV PUSH 08/23/17 09:45 08/23/17 12:28 Alprazolam (Xanax) 0.5 mg Q8H PRN PO ANXIETY 08/23/17 12:30 08/23/17 12:36 Morphine Sulfate (Morphine Inj) 4 mg Q3H PRN IV PUSH pain6-8 08/23/17 14:15 08/23/17 18:32 Objective Remarks GENERAL: Well-nourished, well-developed patient. SKIN: Warm and dry. HEAD: Normocephalic. EYES: No scleral icterus. No injection or drainage. NECK: Supple, trachea midline. No JVD or lymphadenopathy. LYMPHATIC: enlarged left supraclavicular nodes. CARDIOVASCULAR: Regular rate and rhythm without murmurs. RESPIRATORY: Breath sounds equal bilaterally. No accessory muscle use. GASTROINTESTINAL: Abdomen soft, non-tender, nondistended. EXTREMITIES: No cyanosis, or edema. MUSCULOSKELETAL: Adequate muscle tone. NEUROLOGICAL: ataxia of gait and gross tremor finger to nose. tongue still does not move to center when asked to stick tongue out. PSYCHIATRIC: Anxious and sad. Assessment/Plan Assessment 62-year female with progressive adenocarcinoma of the lung admitted with intractable generalized pain, dysphagia and ataxia. --1/--treated with Nivolumab --s/p Treatment with carboplatin on Alimta. + Consolidative radiation therapy to the chest x35 treatments Plan 1. dysphagia: s/p EGD This morning. EGD showed no stricture or other cause for the dysphagia. 2. Ataxia: s/p Lumbar puncture this AM in IR. 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 cytology pending. 3. Pain: add morphine 4mg IV pain level 6-8 and morphine 6mg IV pain level 9- 10. start long-acting Oramorph 15mg PO q 12 hours starting tonight. Attending Statement I have reviewed the CSF fluid with Dr. Alcocer and it is very cellular primarily consisting of lymphocytes. no obvious malignant cells seen. Another slide will be made. The CSF glucose is less than 1. This is consistent with cancer meningitis with other possibilities being infectious or autoimmune process due to nivolumab. Will ask ID to see but doubt this a viral infection. Will begin high dose steroids in case we are dealing with an autoimmune meningitis secondary to Nivolumab. I believe the findings on the spinal tap explain the whole body pain. Will begin high dose solumedral and see what happens over next few day. if autoimmune it should respond to steroids. I spoke with family- patient, and son (nurse medical communication specialist) about CPR and suggested no CPR given progressive non small cell lung caner with limited options. Thy will give it thought. Srini Quintanilla MD Aug 23, 2017 19:01
--- NOTE | 2017-08-23 19:47 | MB ---
cc: DICKSON MICHELLE M.D. DATE OF CONSULTATION: 08/23/2017. HISTORY OF PRESENT ILLNESS: Diana Webster is a 62-year-old seen in neurological consultation. She has been having symptoms for the past few days. The symptoms include difficulty with gait and balance and difficulty with talking as her speech has become hoarse and some double vision. Though there has been a mention of swallowing difficulty, it appears that she has mostly nausea and some vomiting. She has been treated for lung cancer since October of last year. She is denying headaches. She had an MRI brain done and I saw the study which shows a very small area of enhancement in the right medial posterior cerebellar region. Lumbar puncture already done and the spinal fluid shows a white count of 130 WBCs and protein is 379. No fever. HOME MEDICATIONS: Home medications included: 1. Hydrocodone. 2. Xanax. 3. Protonix. PHYSICAL EXAMINATION: On exam, the patient's and son were bedside. She was alert AND pleasant and she is oriented. Mentally seems to be doing reasonably well. Ocular movements without any obvious misalignment. She seems to gaze in all directions appropriately. Visual brown were full. There is no obvious facial weakness but she has right tongue weakness and when she protrudes her tongue IT deviates mildly to the right side but there is lack of tone while her tongue is resting on the right side. The neck was supple. She has some hand trembling left more than right but apparently this is chronic. She was able to stand up for me with some assistance and when marched, she seem to be a bit weaker with the left than the right leg but this may be a balance disorder as well. The reflexes were present, diminished and nearly trace responsive and questionably better right than left leg. Plantar responses are flexor. ASSESSMENT: This pleasant woman's seems to have multiple neurologic symptoms that at this point, along with the spinal fluid initial findings, raise the possibility of meningeal carcinomatosis. The cytology is pending. If this is negative, we may need to do repeated lumbar puncture. Depending upon the clinical course, she will need MRI brain in followup as well. 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 Her speech is quite significantly hoarse and this is all suggesting multiple cranial nerve involvement. I will follow the neurological course and evidently she is being followed by oncology. The underlying diagnosis is lung carcinoma. Thank you for asking us to assist in her care. MD JOSE Guillen/APRIL /3:26 PM /7:30 PM
[2017-08-23] MEDS: methylPREDNISolone SOD SUCC 125 MG/2 ML VIAL IV PUSH SCH (21:57)
[2017-08-23] MEDS: MORPHINE SULFATE 15 MG CONTROLLED RELEASE TAB PO SCH (21:58)
[2017-08-24] VITALS (13 sets, daily range): BP systolic 98–166; BP diastolic 63–106; PULSE 86–121; RESP 14–18; TEMP 97.9–99; O2SAT 88–97
[2017-08-24] MEDS: MORPHINE SULFATE 2 MG/ML INJ IV PUSH PRN ×4 (02:44→18:25)
[2017-08-24] MEDS: RESP: ALBUTEROL 2.5 MG/3 ML NEB (SCH) INH ×4 (08:00→20:36)
[2017-08-24] MEDS: PANTOPRAZOLE SODIUM 40 MG VIAL IV PUSH SCH ×2 (08:44→20:32)
[2017-08-24] MEDS: ENALAPRIL MALEATE 5 MG TAB PO SCH (08:44)
[2017-08-24] MEDS: POLYETHYLENE GLYCOL 17 GM PKG PO SCH (08:44)
[2017-08-24] MEDS: methylPREDNISolone SOD SUCC 125 MG/2 ML VIAL IV PUSH SCH ×2 (08:44→20:31)
[2017-08-24] MEDS: SODIUM CHLORIDE 0.9% FLUSH 10 ML FLUSH IV FLUSH SCH ×2 (08:44→20:31)
[2017-08-24] MEDS: DOCUSATE SODIUM 50 MG/SENNA 8.6 MG TAB PO SCH ×2 (08:44→09:00)
[2017-08-24] MEDS: MORPHINE SULFATE 15 MG CONTROLLED RELEASE TAB PO SCH (08:45)
[2017-08-24] MEDS: HEPARIN SODIUM - SQ 10,000 UNITS/ML VIAL SQ SCH ×2 (09:00→20:33)
[2017-08-24] MEDS: SODIUM CHLOR 0.9% 1000 ML INJ 1,000 ML IV SCH ×2 (11:42→20:33)
--- NOTE | 2017-08-24 11:58 | PD.ONC.PN ---
Subjective Subjective Remarks Afebrile Patient reports her pain is still at a level of 6-7 Family at bedside report she was quite uncomfortable when they arrived this morning Reports she was unable to swallow her breakfast this morning Objective Data Date Time Temp Pulse Resp B/P (MAP) Pulse Ox O2 Delivery O2 Flow Rate FiO2 08/24/17 11:47 98.8 98 16 150/87 (108) 08/24/17 08:39 98.4 114 14 144/106 (119) 92 08/24/17 08:03 92 08/24/17 05:19 98.6 93 18 130/70 (90) 92 08/24/17 04:00 108 08/24/17 00:25 98.7 95 18 158/81 (106) 93 08/24/17 00:01 97 08/23/17 22:00 97.7 114 18 153/91 (111) 90 08/23/17 20:59 97 08/23/17 20:00 106 08/23/17 18:42 98.2 108 18 134/81 (98) 94 08/23/17 17:00 118 08/23/17 14:58 136/77 (96) 08/23/17 12:21 97.1 117 20 161/97 (118) 96 08/24/17 08/24/17 08/24/17 07:00 15:00 23:00 Intake Total 400 ml Output Total 300 ml Balance 100 ml Result Diagram: 08/23/17 0714 08/23/17 0714 Culture Results Microbiology Date/Time Source Procedure Growth Status 08/23/17 09:11 Cerebral Spinal Fluid Lumbar Puncture Gram Stain - Final Resulted 08/23/17 09:11 Cerebral Spinal Fluid Lumbar Puncture CSF Culture - Preliminary NO GROWTH IN 24 HOURS. Resulted Administered Medications Medications (Trade) Dose Ordered Sig/Constance Route PRN Reason Start Time Stop Time Status Last Admin Dose Admin Sodium Chloride 1,000 ml @ 75 mls/hr [id number] IV 08/22/17 15:42 08/24/17 11:42 Sodium Chloride (NS Flush) 2 ml BID IV FLUSH 08/22/17 21:00 08/24/17 08:44 Senna/Docusate Sodium (Delphine-Colace) 1 tab BID PO 08/22/17 21:00 08/24/17 08:44 Lactulose (Lactulose Liq) 30 ml DAILY PRN PO SEVERE CONSITIPATION 08/22/17 15:45 08/23/17 15:09 Enalapril Maleate (Vasotec) 5 mg DAILY PO 08/23/17 09:00 08/24/17 08:44 Albuterol Sulfate (Albuterol Neb) 2.5 mg QID NEB INH 08/22/17 20:00 08/24/17 08:00 Acetaminophen/ Hydrocodone Bitart ([place] 10-325 Mg) 1 tab Q4H PRN PO PAIN SCALE 1 TO 5 08/22/17 17:45 08/23/17 12:09 Polyethylene Glycol (Miralax) 17 gm DAILY PO 08/23/17 09:00 08/24/17 08:44 Enalaprilat (Vasotec Inj) 1.25 mg Q6H PRN IV PUSH SBP>160, DBP>90 08/22/17 20:15 08/23/17 06:46 Heparin Sodium (Porcine) (Heparin Inj) 5,000 units Q12HR SQ 08/22/17 21:00 08/23/17 21:57 Pantoprazole Sodium (Protonix Inj) 40 mg Q12HR IV PUSH 08/23/17 09:45 08/24/17 08:44 Alprazolam (Xanax) 0.5 mg Q8H PRN PO ANXIETY 08/23/17 12:30 08/23/17 12:36 Morphine Sulfate (Morphine Inj) 4 mg Q3H PRN IV PUSH pain6-8 08/23/17 14:15 08/24/17 02:44 Morphine Sulfate (Morphine Inj) 6 mg Q3H PRN IV PUSH pain9-10 08/23/17 14:15 08/24/17 08:52 Morphine Sulfate (Oramorph Sr) 15 mg Q12HR PO 08/23/17 21:00 08/24/17 08:45 Methylprednisolone Sodium Succinate (SoluMEDROL INJ) 60 mg Q12HR IV PUSH 08/23/17 21:00 08/24/17 08:44 Objective Remarks GENERAL: Older female sitting in chair at bedside in no apparent distress SKIN: Warm and dry. HEAD: Normocephalic. EYES: No injection or drainage. NECK: Supple, trachea midline. LYMPHATIC: enlarged left supraclavicular nodes. CARDIOVASCULAR: Regular rate and rhythm without murmurs. RESPIRATORY: Clear posteriorly. Breathing unlabored at rest. GASTROINTESTINAL: Abdomen soft, non-tender, nondistended. EXTREMITIES: No cyanosis, or edema. MUSCULOSKELETAL: Adequate muscle tone. NEUROLOGICAL: Hoarseness. Patient has fine tremor of hands. Very slight weakness noted to right upper extremity Assessment/Plan Assessment 62-year female with progressive adenocarcinoma of the lung admitted with intractable generalized pain, dysphagia and ataxia. --08/01--treated with Nivolumab --s/p Treatment with carboplatin on Alimta. + Consolidative radiation therapy to the chest x35 treatments Plan 1. Patient reports worsening swallowing however recent EGD showed no stricture or other cause for the dysphagia 2. Cytology remains pending for CSF fluid 3. Continue breakthrough morphine IV as ordered 4. Increase Oramorph to 30 mg by mouth every 12 hours Attending Statement The exam, history, and the medical decision-making described in the above note were completed with the assistance of the mid-level provider. I reviewed and agree with the findings presented. I attest that I had a [id number] encounter with the patient on the same day, and personally performed and documented my assessment and findings in the medical record. she is worse. gait ataxia is worse. tremor is worse and tongue no better. In spite of the fact that we have not identified malignant cells in spinal fluid I still suspect this is the problem given rapidly increasing CEA. family and patient has agreed to no CPR. Will continue steroids for the time being and write for no CPR. Krystle Polk Aug 24, 2017 11:57 Srini Quintanilla MD Aug 24, 2017 17:47
--- NOTE | 2017-08-24 12:00 | HHI.PR ---
Subjective Remarks Follow-up for ataxia, dysphasia, blurry vision, and pain Patient stated pain is better controlled. She feels like she is not getting better in terms of her neurological symptoms. Continue to have ataxia dysphasia and blurred vision. She had a lot of questions about on diagnosis and if she would get better. Patient's and sister at the bedside during the interview. Objective Vitals Vital Signs Date Time Temp Pulse Resp B/P (MAP) Pulse Ox O2 Delivery O2 Flow Rate FiO2 08/24/17 11:47 98.8 98 16 150/87 (108) 08/24/17 08:39 98.4 114 14 144/106 (119) 92 08/24/17 08:03 92 08/24/17 05:19 98.6 93 18 130/70 (90) 92 08/24/17 04:00 108 08/24/17 00:25 98.7 95 18 158/81 (106) 93 08/24/17 00:01 97 08/23/17 22:00 97.7 114 18 153/91 (111) 90 08/23/17 20:59 97 08/23/17 20:00 106 08/23/17 18:42 98.2 108 18 134/81 (98) 94 08/23/17 17:00 118 08/23/17 14:58 136/77 (96) 08/23/17 12:21 97.1 117 20 161/97 (118) 96 I/O 08/23/17 08/23/17 08/23/17 08/24/17 08/24/17 08/24/17 07:00 15:00 23:00 07:00 15:00 23:00 Intake Total 850 ml 1000 ml 400 ml Output Total 475 ml 300 ml Balance -475 ml 850 ml 1000 ml 100 ml Intake Oral 550 ml IV Total 1000 ml 400 ml Other 300 ml Output Urine Total 475 ml 300 ml # Voids 4 Result Diagram: 08/23/1771308/23/17713 Objective Remarks GENERAL: in NAD sitting in chair. CARDIOVASCULAR: Regular rate and rhythm without murmurs, gallops, or rubs. RESPIRATORY: Breath sounds equal bilaterally. No accessory muscle use. GASTROINTESTINAL: Abdomen soft, non-tender, nondistended. MUSCULOSKELETAL: No cyanosis, or edema. BACK: Nontender without obvious deformity. No CVA tenderness. NEURO strength and sensation grossly intact. Coordination is intact. Medications and IVs Current Medications Morphine Sulfate (Morphine Inj) 5 mg ONCE ONCE IV PUSH Last administered on at 13:25; Start 08/22/17 at 13:00; Stop 08/22/17 at 13:06; Status DC Prochlorperazine Edisylate (Compazine Inj) 10 mg ONCE ONCE IV PUSH Last administered on 08/22/17at 13:24; Start 08/22/17 at 13:00; Stop 08/22/17 at 13:06 ; Status DC Lorazepam (Ativan Inj) 1 mg ONCE ONCE IV PUSH Last administered on 08/22/17at 14:35; Start 08/22/17 at 14:30; Stop 08/22/17 at 14:31; Status DC Gadodiamide (Omniscan Pf Inj) 14 ml STK-MED ONCE IVCONTRAST Last administered on 08/22/17at 12:24; Start 08/22/17 at 12:24; Stop 08/22/17 at 15:10; Status DC Sodium Chloride 1,000 ml @ 75 mls/hr [id number] IV Last administered on at 11:42; Start 08/22/17 at 15:42 Sodium Chloride (NS Flush) 2 ml UNSCH PRN IV FLUSH FLUSH AFTER USING IV ACCESS ; Start 08/22/17 at 15:45 Sodium Chloride (NS Flush) 2 ml BID IV FLUSH Last administered on 08/24/17at 08: 44; Start 08/22/17 at 21:00 Acetaminophen (Tylenol) 650 mg Q4H PRN PO TEMP > 100.4; Start 08/22/17 at 15:45 Ondansetron HCl (Zofran Inj) 4 mg Q6H PRN IVP NAUSEA OR VOMITING; Start at 15:45; Stop 08/22/17 at 19:25; Status DC Naloxone HCl (Narcan Inj) 0.4 mg UNSCH PRN IV PUSH SEE LABEL COMMENTS; Start at 15:45 Senna/Docusate Sodium (Delphine-Colace) 1 tab BID PO Last administered on at 08:44; Start 08/22/17 at 21:00 Magnesium Hydroxide (Milk Of Magnesia Liq) 30 ml Q12H PRN PO Mild constipation ; Start 08/22/17 at 15:45 Sennosides (Senokot) 17.2 mg Q12H PRN PO Moderate constipation; Start 08/22/17 at 15:45 Bisacodyl (Dulcolax Supp) 10 mg DAILY PRN RECTAL SEVERE CONSITIPATION; Start at 15:45 Lactulose (Lactulose Liq) 30 ml DAILY PRN PO SEVERE CONSITIPATION Last administered on 08/23/17at 15:09; Start 08/22/17 at 15:45 Oxycodone/ Acetaminophen (Percocet 10-325 Mg) 1 tab Q4H PRN PO PAIN SCALE 6 TO 10; Start 08/22/17 at 15:45; Stop 08/22/17 at 17:41; Status DC Oxycodone/ Acetaminophen (Percocet 7.5-325 Mg) 1 tab Q4H PRN PO PAIN SCALE 3 TO 5; Start 08/22/17 at 15:45; Stop 08/22/17 at 17:41; Status DC Hydromorphone HCl (Dilaudid Pf Inj) 1 mg Q4H PRN IV PUSH BREAKTHROUGH PAIN; Start 08/22/17 at 15:45; Stop 08/23/17 at 14:03; Status DC Alprazolam (Xanax) 0.25 mg Q8H PRN PO anxiety Last administered on 08/23/17at 06 :46; Start 08/22/17 at 16:00; Stop 08/23/17 at 12:16; Status DC Enalapril Maleate (Vasotec) 5 mg DAILY PO Last administered on 08/24/17at 08:44 ; Start 08/23/17 at 09:00 Pantoprazole Sodium (Protonix) 40 mg HS PO Last administered on 08/22/17at 20:41 ; Start 08/22/17 at 21:00; Stop 08/23/17 at 09:36; Status DC Morphine Sulfate (Morphine Inj) 4 mg ONCE ONCE IV PUSH Last administered on at 17:53; Start 08/22/17 at 16:45; Stop 08/22/17 at 16:46; Status DC Prochlorperazine Edisylate (Compazine Inj) 10 mg ONCE ONCE IV PUSH Last administered on 08/22/17 17:53; Start 08/22/17 at 16:45; Stop 08/22/17 at 16:46 ; Status DC Prednisone (Deltasone) 20 mg DAILY PO Last administered on 08/23/17at 08:21; Start 08/22/17 at 18:00; Stop 08/23/17 at 18:50; Status DC Albuterol Sulfate (Albuterol Neb) 2.5 mg QID NEB INH Last administered on 08/24at 08:00; Start 08/22/17 at 20:00 Acetaminophen/ Hydrocodone Bitart ([place] 10-325 Mg) 1 tab Q4H PRN PO PAIN SCALE 1 TO 5 Last administered on 08/23/17 12:09; Start 08/22/17 at 17:45 Prochlorperazine Edisylate (Compazine Inj) 10 mg Q6H PRN IV PUSH NAUSEA OR VOMITING; Start 08/22/17 at 19:30 Polyethylene Glycol (Miralax) 17 gm DAILY PO Last administered on 08/24/17at 08: 44; Start 08/23/17 at 09:00 Magnesium Hydroxide (Milk Of Magnesia Liq) 30 ml DAILY PRN PO CONSTIPATION; Start 08/22/17 at 19:30; Status Cancel Senna/Docusate Sodium (Delphine-Colace) 1 tab DAILY PO ; Start 08/23/17 at 09:00 Enalaprilat (Vasotec Inj) 1.25 mg Q6H PRN IV PUSH SBP>160, DBP>90 Last administered on 08/23/17at 06:46; Start 08/22/17 at 20:15 Heparin Sodium (Porcine) (Heparin Inj) 5,000 units Q12HR SQ Last administered on 08/23/17at 21:57; Start 08/22/17 at 21:00 Pantoprazole Sodium (Protonix Inj) 40 mg Q12HR IV PUSH Last administered on at 08:44; Start 08/23/17 at 09:45 Alprazolam (Xanax) 0.5 mg Q8H PRN PO ANXIETY Last administered on 08/23/17at 12: 36; Start 08/23/17 at 12:30 Morphine Sulfate (Morphine Inj) 4 mg Q3H PRN IV PUSH pain6-8 Last administered on 08/24/17at 02:44; Start 08/23/17 at 14:15 Morphine Sulfate (Morphine Inj) 6 mg Q3H PRN IV PUSH pain9-10 Last administered on 08/24/17at 08:52; Start 08/23/17 at 14:15 Morphine Sulfate (Morphine Inj) 4 mg STAT ONCE IV PUSH Last administered on at 14:53; Start 08/23/17 at 14:08; Stop 08/23/17 at 14:09; Status DC Morphine Sulfate (Oramorph Sr) 15 mg Q12HR PO Last administered on 08/24/17at 08 :45; Start 08/23/17 at 21:00; Stop 08/24/17 at 11:53; Status DC Methylprednisolone Sodium Succinate (SoluMEDROL INJ) 60 mg Q12HR IV PUSH Last administered on 08/24/17at 08:44; Start 08/23/17 at 21:00 Morphine Sulfate (Oramorph Sr) 30 mg Q12HR PO ; Start 08/24/17 at 21:00; Status UNV A/P Assessment and Plan This is a 62-year-old female who is currently being treated for adenocarcinoma of the lungs who presented with ataxia and dysphagia Ataxia and dysphagia -EGD done today which showed the Araujo's esophagitis and gastritis status post biopsies taken but no strictures noted. Per GI patient can eat and recommend Protonix. Per speech therapist recommend soft nectar consistency and no straw. 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 Pending cytology. Neurologist also consulted and stated that if cytology is negative with repeat LP. -Infectious disease consulted pending recommendations. -Patient was started on steroids. Adenocarcinoma of the lungs - per oncologist 08/01 treated with Nivolumab s/p Treatment with carboplatin on Alimta. + Consolidative radiation therapy to the chest x35 treatments -Brain MRI shows 3mm rounded focus of abnormal signal involving the right cerebellar hemisphere. New finding worrisome for intraparenchymal metastasis. Pt didn't tolerate percocets due to severe nausea. Patient is on IV Dilaudid the managed by oncologist. -LP fluid was clear with opening pressure of 18. cell count shows elevated protein, glucose less than one and WBC >100k concerned for meningeal carcinomatosis. -Management per her oncologist. Acute on chronic pain -Secondary to metastatic disease. Oncologist is managing pain. This has improved. Hypertension -Improved. Continue home medication. Anxiety disorder -Continue home medication. DVT proph: heparin SQ Katrina Connell MD Aug 24, 2017 12:00
--- NOTE | 2017-08-24 16:52 | HHI.GIFU ---
Subjective Remarks Abdomen taut Mild tenderness on exam Denies any nausea vomiting or dysphagia Objective Vitals I&O Vital Signs Date Time Temp Pulse Resp B/P (MAP) Pulse Ox O2 Delivery O2 Flow Rate FiO2 08/24/17 11:47 98.8 98 16 150/87 (108) 08/24/17 08:39 98.4 114 14 144/106 (119) 92 08/24/17 08:03 92 08/24/17 08:00 121 08/24/17 05:19 98.6 93 18 130/70 (90) 92 08/24/17 04:00 108 08/24/17 00:25 98.7 95 18 158/81 (106) 93 08/24/17 00:01 97 08/23/17 22:00 97.7 114 18 153/91 (111) 90 08/23/17 20:59 97 08/23/17 20:00 106 08/23/17 18:42 98.2 108 18 134/81 (98) 94 08/23/17 17:00 118 I/O 08/23/17 08/23/17 08/23/17 08/24/17 08/24/17 08/24/17 07:00 15:00 23:00 07:00 15:00 23:00 Intake Total 850 ml 1000 ml 400 ml Output Total 475 ml 300 ml Balance -475 ml 850 ml 1000 ml 100 ml Intake Oral 550 ml IV Total 1000 ml 400 ml Other 300 ml Output Urine Total 475 ml 300 ml # Voids 4 Laboratory Date/Time Source Procedure Growth Status 08/23/17 09:11 Cerebral Spinal Fluid Lumbar Puncture Gram Stain - Final Resulted 08/23/17 09:11 Cerebral Spinal Fluid Lumbar Puncture CSF Culture - Preliminary NO GROWTH IN 24 HOURS. Resulted Imaging Last Impressions Lumbar Puncture Fluoroscopy 08/23/17 0600 Signed Impressions: Service Date/Time: Wednesday, August 23, 2017 10:11 - CONCLUSION: Uncomplicated fluoroscopically guided lumbar puncture with pressures as above. Clint Ojeda MD Brain MRI 08/22/17 1259 Signed Impressions: Service Date/Time: July 14:55 - CONCLUSION: 1. There is a 3 mm rounded focus of abnormal signal involving the right cerebellar hemisphere. This is a new finding from the prior exam and is worrisome for a tiny intraparenchymal metastasis. 2. Atrophy. Fernando Toribio Jr., MD Physical Exam HEENT: Pupils round and reactive to light; normocephalic; atraumatic; no jaundice. Oral cavity clean NECK: Neck is supple, no JVD, no lymphadenopathy. CHEST: Chest is clear to auscultation and percussion. CARDIAC: Regular rate and rhythm with no murmur gallop or rubs. ABDOMEN: Soft, nondistended, nontender; no hepatosplenomegaly; bowel sounds are present in all four quadrants. EXTREMITIES: No clubbing, cyanosis, or edema. SKIN: Normal; no rash; no jaundice. POULTRY DEBEAKER: Awake , answers questions appropriately oriented times three. Assessment and Plan Assessment: (1) Dysphagia ICD Codes: R13.10 - Dysphagia, unspecified Status: Acute Plan Abdominal tenderness mild, abdomen taut Hemoglobin stable at 10.7 with no active bleeding No complaints of dysphagia during my exam EGD done 05/23/18 Patient has short Araujo esophagus , No stricture noted, Minimal gastritis No reason for the dysphagia Multiple biopsies pending PLAN: Heart healthy regular diet Protonix 40 mg daily Follow-up biopsy in 7-10 days Chew food well, cut small bites No reason for dysphagia was seen on this procedure Monitor hemoglobin and any acute bleeding Dependent on patient's symptoms may consider barium swallow or manometry This patient was seen by myself and Dr. Vargas, note was done on his behalf Yaquelin Hidalgo Aug 24, 2017 16:52
--- NOTE | 2017-08-24 17:42 | MB ---
cc: CHRISTOPHER ELIZALDE MD DATE OF CONSULTATION 08/24/[address] Quintanilla REASON FOR CONSULTATION Abnormal CSF. Is there any possibility that the findings on the spinal fluid can be explained by an infectious process with glucose less than one, increased protein and multiple lymphocytes. HISTORY OF PRESENT ILLNESS This is a 62-year-old white female who was admitted to the hospital on August 22 with diffuse pain and now having diplopia and also woke up with CSF showing low glucose. The patient has a history stage IV adenocarcinoma of the lung and she has been treated with radiation therapy and chemotherapy. She has no fever and her white blood cell count is normal. The patient has developed difficulty ambulating and also difficulty with her speech with hoarseness, also voice to some degree. She has no mental status changes. She is alert. She describes difficulty that she is weak and also gets blurred vision. The vision changes began about a week ago. She denies prior headaches before being hospitalized. This morning, she ambulated with the help of a walker and her sister's assistance and, after she sat down in a chair, she developed a diffuse headache which she says was the first time she had a headache. She also developed some vomiting after she ate scrambled eggs this morning. She denies chills. The lumbar puncture was performed and it showed 130 white cells, 30 red cells. 66% lymphocytes, 24% monocytes, 4% schistocytes. Glucose less than one and total protein 379. Cerebrospinal fluid gram stain showed no organisms and few white cell. The CSF has no growth in 24 hours. The patient has been afebrile since admission and the white blood cell count has remained normal. The MRI of the brain was performed and there is noted a 3 mm rounded focus of abnormal signal involving the right cerebellar hemisphere. This is noted to be a new finding from the prior exam, which is worrisome for a tiny intra parenchymal metastasis. The patient was diagnosed with the cancer and received radiation therapy up until May. Prior to that, she received chemotherapy. Her cancer was noted to involve the pericardium and pericardial window was performed on 11/02/2016. She was treated with Nivolumab on 08/01/2017 and was noted to have developed increased pain throughout the entire bony skeleton. PAST MEDICAL HISTORY 1. Adenocarcinoma carcinoma of the lungs 2. Gastroesophageal reflux disease 3. History of pericardial window 4. History of the [id number] placement 5. Pilonidal cyst removal. ALLERGIES AMOXICILLIN ODANSETRON OXYCODONE MEDS 1. Methylprednisolone 2. Morphine sulfate 3. Xanax 4. Protonix 5. Vasotec 6. MiraLax 7. Delphine-Colace. 8. Compazine as needed SOCIAL HISTORY The patient quit smoking cigarettes in October 2016. She also stopping using alcohol 10 months ago. No illicit drugs. FAMILY HISTORY Significant for diabetes in the patient's dad. REVIEW OF SYSTEMS CONSTITUTIONAL: Denies fever or chills. HEENT: Significant for blurred vision, double vision. Denies soreness of the throat. CARDIOVASCULAR: Denies palpitation or chest pain. RESPIRATORY: Denies shortness of breath. Occasional cough. GASTROINTESTINAL: Denies nausea, vomiting, abdominal pain or diarrhea. GENITOURINARY:: Significant for frequency. ENDOCRINE: Denies polyuria or polydipsia. HEMATOPOIETIC: Denies easy bruising or bleeding. INTEGUMENTARY: Denies skin rash or itching. NEUROLOGIC: Notes problems with coordination and tremulousness PSYCHIATRIC: Denies mood changes or depression. PHYSICAL EXAMINATION GENERAL: This is a well-developed female who is in no acute distress. She is awake, alert and oriented. VITAL SIGNS: Temperature 98.8, blood pressure 160/87, respirations 16, heart rate 98. HEENT: Head atraumatic. Extraocular movements appear grossly intact. No icterus. No conjunctival erythema. Nose - Septum midline. Oropharynx moist mucosa without lesions. No thrush. NECK: Supple without adenopathy. LUNGS: Clear, decreased breath sounds HEART: Regular S1 and S2 without murmurs, rubs or gallops. ABDOMEN: Soft, benign, nontender. RECTAL: Not performed. EXTREMITIES: No clubbing or cyamosis. No edema. SKIN: No rash. NEUROLOGIC: Significant for hoarseness of the voice. Mild weakness of the lower extremities. LABORATORY DATA WBC 6.2, platelets 213, 84% neutrophils, 8% lymphocytes, creatinine 1.11, BUN 30, sodium 137. Liver function tests normal. CEA antigen 3,064. IMPRESSION 1. Abnormal CSF with extremely low glucose and elevated protein in patient with diplopia and blurred vision with history of stage IV lung cancer who has received treatment. MRI of the brain reveals a small rounded focus of abnormal signal in the right cerebellar hemisphere. 2. Diplopia. Possibilities for the low glucose in the CSF which has predominantly lymphocytes along with monocytes includes viral versus fungal versus tuberculous meningitis. As far as infections are concerned then possibly HSV and CMV would be in the differential. The other possible explanations in her case would be carcinomatous meningitis and inflammatory cause. The patient has little headache since the onset of her acute symptoms changes with her diplopia and the CSF findings. Maybe noninfectious. She has no fever and clinically she does not appear toxic from infection standpoint. I will order studies on the CSF to include a viral BCR testing for CMV and HSV, AFB stain and culture and Cryptococcal antigen. Clinically she is not toxic and I do not think it is necessary to start antibiotic treatment. Thank you for this consultation. I will follow cultures and make further recommendations on followup if necessary. Christopher Elizalde MD FD/ /11:45 AM /4:55 PM
[2017-08-24] MEDS: ALPRAZolam 0.5 MG TAB PO PRN (20:32)
[2017-08-24] MEDS ORDERED: MORPHINE SULFATE 30 MG CONTROLLED RELEASE TAB PO SCH (21:00)
[2017-08-25] VITALS (16 sets, daily range): BP systolic 122–183; BP diastolic 75–101; PULSE 89–128; RESP 12–18; TEMP 97.3–98.9; O2SAT 84–95
[2017-08-25 05:40] LABS: AUTOMATED NEUTROPHIL # 11.4 TH/MM3 (1.8-7.7); BASOPHIL % 0.1 % (0.0-2.0); HEMATOCRIT 31.6 % (35.0-46.0); HEMOGLOBIN 10.5 GM/DL (11.6-15.3); LYMPH % 5.2 % (9.0-44.0); LYMPHOCYTE # 0.6 TH/MM3 (1.0-4.8); MEAN CELL VOLUME 98.9 FL (80.0-100.0); MEAN CORPUSCULAR HEMOGLOBIN 32.8 PG (27.0-34.0); MEAN CORPUSCULAR HGB CONC 33.1 % (32.0-36.0); MEAN PLATELET VOLUME 7.5 FL (7.0-11.0); MONO % 3.7 % (0.0-8.0); MONOCYTE # 0.5 TH/MM3 (0-0.9); PLATELET COUNT 219 TH/MM3 (150-450); RED BLOOD COUNT 3.19 MIL/MM3 (4.00-5.30); RED CELL DISTRIBUTION WIDTH 16.5 % (11.6-17.2); WHITE BLOOD COUNT 12.5 TH/MM3 (4.0-11.0)
[2017-08-25 05:46] LABS: BICARBONATE 24.6 MEQ/L (21.0-32.0); CALCIUM 9.2 MG/DL (8.5-10.1); CREATININE 1.22 MG/DL (0.50-1.00)
[2017-08-25] MEDS: ACETAMINOPHEN/HYDROcodone 325 MG/10 MG TAB PO PRN (06:09)
[2017-08-25] MEDS: RESP: ALBUTEROL 2.5 MG/3 ML NEB (SCH) INH ×2 (08:40→11:37)
[2017-08-25] MEDS: POLYETHYLENE GLYCOL 17 GM PKG PO SCH (09:00)
[2017-08-25] MEDS: DOCUSATE SODIUM 50 MG/SENNA 8.6 MG TAB PO SCH (09:00)
[2017-08-25] MEDS: ENALAPRIL MALEATE 5 MG TAB PO SCH (09:00)
[2017-08-25] MEDS: methylPREDNISolone SOD SUCC 125 MG/2 ML VIAL IV PUSH SCH (10:03)
[2017-08-25] MEDS: PANTOPRAZOLE SODIUM 40 MG VIAL IV PUSH SCH ×2 (10:03→21:19)
[2017-08-25] MEDS: MORPHINE SULFATE 2 MG/ML INJ IV PUSH PRN ×3 (10:21→18:58)
--- NOTE | 2017-08-25 10:46 | PD.ONC.PN ---
Subjective Subjective Remarks Afebrile Patient sitting up on side of bed currently getting a breathing treatment Denies feeling short of breath Reports she choked on egg this morning Patient made NPO for possible aspiration Reports her pain is a 7 however she is just received some morphine Objective Data Date Time Temp Pulse Resp B/P (MAP) Pulse Ox O2 Delivery O2 Flow Rate FiO2 08/25/17 08:42 84 Nasal Cannula 3.00 08/25/17 08:18 98.9 96 14 149/89 (109) 90 08/25/17 04:00 98.2 96 16 166/94 (118) 91 08/25/17 00:00 89 08/25/17 00:00 98.5 89 16 122/75 (91) 08/24/17 20:36 88 21 08/24/17 20:00 98.5 116 16 166/90 (115) 88 08/24/17 20:00 116 08/24/17 19:40 86 08/24/17 18:12 99.0 117 16 164/89 (114) 91 08/24/17 11:47 98.8 98 16 150/87 (108) 08/25/17 08/25/17 08/25/17 07:00 15:00 23:00 Intake Total 100 ml Balance 100 ml Result Diagram: 08/25/17 0450 08/25/17 0450 Laboratory Results Laboratory Tests Test 08/25/17 04:50 White Blood Count 12.5 TH/MM3 Red Blood Count 3.19 MIL/MM3 Hemoglobin 10.5 GM/DL Hematocrit 31.6 % Mean Corpuscular Volume 98.9 FL Mean Corpuscular Hemoglobin 32.8 PG Mean Corpuscular Hemoglobin Concent 33.1 % Red Cell Distribution Width 16.5 % Platelet Count 219 TH/MM3 Mean Platelet Volume 7.5 FL Neutrophils (%) (Auto) 91.0 % Lymphocytes (%) (Auto) 5.2 % Monocytes (%) (Auto) 3.7 % Eosinophils (%) (Auto) 0.0 % Basophils (%) (Auto) 0.1 % Neutrophils # (Auto) 11.4 TH/MM3 Lymphocytes # (Auto) 0.6 TH/MM3 Monocytes # (Auto) 0.5 TH/MM3 Eosinophils # (Auto) 0.0 TH/MM3 Basophils # (Auto) 0.0 TH/MM3 CBC Comment DIFF FINAL Differential Comment Blood Urea Nitrogen 27 MG/DL Creatinine 1.22 MG/DL Random Glucose 134 MG/DL Calcium Level 9.2 MG/DL Sodium Level 142 MEQ/L Potassium Level 3.8 MEQ/L Chloride Level 109 MEQ/L Carbon Dioxide Level 24.6 MEQ/L Anion Gap 8 MEQ/L Estimat Glomerular Filtration Rate 45 ML/MIN Culture Results Microbiology Date/Time Source Procedure Growth Status 08/24/17 09:11 Cerebral Spinal Fluid Lumbar Puncture Acid Fast Stain Pending Received 08/24/17 09:11 Cerebral Spinal Fluid Lumbar Puncture Mycobacterial Culture Pending Received 08/23/17 09:11 Cerebral Spinal Fluid Lumbar Puncture Gram Stain - Final Resulted 08/23/17 09:11 Cerebral Spinal Fluid Lumbar Puncture CSF Culture - Preliminary NO GROWTH IN 48 HOURS. Resulted Administered Medications Medications (Trade) Dose Ordered Sig/Constance Route PRN Reason Start Time Stop Time Status Last Admin Dose Admin Sodium Chloride 1,000 ml @ 75 mls/hr [id number] IV 08/22/17 15:42 08/24/17 11:42 Sodium Chloride (NS Flush) 2 ml BID IV FLUSH 08/22/17 21:00 08/24/17 20:31 Lactulose (Lactulose Liq) 30 ml DAILY PRN PO SEVERE CONSITIPATION 08/22/17 15:45 08/23/17 15:09 Enalapril Maleate (Vasotec) 5 mg DAILY PO 08/23/17 09:00 08/24/17 08:44 Albuterol Sulfate (Albuterol Neb) 2.5 mg QID NEB INH 08/22/17 20:00 08/25/17 08:40 Acetaminophen/ Hydrocodone Bitart ([place] 10-325 Mg) 1 tab Q4H PRN PO PAIN SCALE 1 TO 5 08/22/17 17:45 08/25/17 06:09 Prochlorperazine Edisylate (Compazine Inj) 10 mg Q6H PRN IV PUSH NAUSEA OR VOMITING 08/22/17 19:30 08/24/17 18:21 Polyethylene Glycol (Miralax) 17 gm DAILY PO 08/23/17 09:00 08/24/17 08:44 Enalaprilat (Vasotec Inj) 1.25 mg Q6H PRN IV PUSH SBP>160, DBP>90 1/25/18 20:15 08/23/17 06:46 Heparin Sodium (Porcine) (Heparin Inj) 5,000 units Q12HR SQ 08/22/17 21:00 08/24/17 20:33 Pantoprazole Sodium (Protonix Inj) 40 mg Q12HR IV PUSH 08/23/17 09:45 08/25/17 10:03 Alprazolam (Xanax) 0.5 mg Q8H PRN PO ANXIETY 08/23/17 12:30 08/24/17 20:32 Morphine Sulfate (Morphine Inj) 4 mg Q3H PRN IV PUSH pain6-8 08/23/17 14:15 08/25/17 10:21 Morphine Sulfate (Morphine Inj) 6 mg Q3H PRN IV PUSH pain9-10 08/23/17 14:15 08/24/17 08:52 Methylprednisolone Sodium Succinate (SoluMEDROL INJ) 60 mg Q12HR IV PUSH 08/23/17 21:00 08/25/17 10:03 Objective Remarks GENERAL: Older female sitting up on side of bed getting a breathing treatment SKIN: Warm and dry. HEAD: Normocephalic. EYES: No injection or drainage. NECK: Supple, trachea midline. LYMPHATIC: Enlarged left supraclavicular nodes. CARDIOVASCULAR: + S1/S2. Tachycardia RESPIRATORY: Diminished to RLL. On 6L NC GASTROINTESTINAL: Abdomen soft, non-tender, nondistended. EXTREMITIES: No cyanosis, or edema. MUSCULOSKELETAL: Adequate muscle tone. NEUROLOGICAL: Hoarseness. Patient has fine tremor of hands. Very slight weakness noted to right upper extremity. Tongue deviates to the right. Assessment/Plan Assessment 62-year female with progressive adenocarcinoma of the lung admitted with intractable generalized pain, dysphagia and ataxia. --/--treated with Nivolumab --s/p Treatment with carboplatin on Alimta. + Consolidative radiation therapy to the chest x35 treatments Plan 1. Pt to have CXR to evaluate for aspiration pneumonia with decreasing O2 sats. 2. As she is currently NPO, will switch her Oramorph to Fentanyl 25mcg po daily. 3. Carcinomatous meningitis remains at the top differential vs an infectious process; appreciate ID input. 4 This lady unfortunately has a grim prognosis. Attending Statement The exam, history, and the medical decision-making described in the above note were completed with the assistance of the mid-level provider. I reviewed and agree with the findings presented. I attest that I had a [id number] encounter with the patient on the same day, and personally performed and documented my assessment and findings in the medical record.patient patient is dying. oxygen saturation deteriorating. neurologic function worse and gaze is dysconjugate. tremor worse. gait worse. met with sister and . Everyone understands she is dying and I can not prevent this. Will consult hospice and stop steroids. will not do ct angiogram to rule out PE. everyone in agreement including patient. spoke with Dr. Caban radiology and there is no compelling reason to pull back infuseport line and I agree. Krystle Polk Aug 25, 2017 10:46 Srini Quintanilla MD Aug 25, 2017 16:14
[2017-08-25] MEDS ORDERED: fentaNYL 25 MCG/HR PATCH T-DERMAL SCH (11:00)
--- NOTE | 2017-08-25 11:07 | RADRPT ---
EXAM DATE/TIME: 08/25/2017 10:51 [facility] COMPARISON: CHEST PA & LAT, August 19, 2017, 14:37. INDICATIONS : Shortness of breath. MEDICAL HISTORY : Carcinoma, lung SURGICAL HISTORY : Lung biopsy, tooth pulled, port placement and cyst removed ENCOUNTER: Subsequent ACUITY: 2 weeks PAIN SCORE: 0/10 LOCATION: Bilateral chest FINDINGS: PA lateral views the chest demonstrate a central line with the tip overlying the region of the right atrium. Recommend retraction approximately 5 cm for optimal positioning. The lungs are clear. The heart size is normal. Pulmonary vasculature is normal. CONCLUSION: The central line appears to be positioned overlying the right atrium. Recommend retraction approximat joselito 5 cm for optimal positioning. No evidence of acute cardiopulmonary disease. Josefina Palomino MD on August 25, 2017 at 11:03 Board Certified Radiologist. This report was verified electronically.
--- NOTE | 2017-08-25 11:16 | HHI.PR ---
Subjective Remarks Follow-up for ataxia, dysphasia, pain Patient stated that she feels worse today. She had episode of hypoxia last night and when she desat into the lower 80s. Patient stated that her swelling is getting worse and that when she ate eggs yesterday she was coughing a lot and thought she was choking. She was also not able to take her oral pain medication he cut she stated that she could not swallow them. Patient son, and her sister at the bedside during the interview. Discussed case with patient's nurse Leida was also the bedside and with CONNIE Krystle Jam. Objective Vitals Vital Signs Date Time Temp Pulse Resp B/P (MAP) Pulse Ox O2 Delivery O2 Flow Rate FiO2 08/25/17 08:42 84 Nasal Cannula 3.00 08/25/17 08:18 98.9 96 14 149/89 (109) 90 08/25/17 04:00 98.2 96 16 166/94 (118) 91 08/25/17 00:00 89 08/25/17 00:00 98.5 89 16 122/75 (91) 08/24/17 20:36 88 21 08/24/17 20:00 98.5 116 16 166/90 (115) 88 08/24/17 20:00 116 08/24/17 19:40 86 08/24/17 18:12 99.0 117 16 164/89 (114) 91 08/24/17 11:47 98.8 98 16 150/87 (108) I/O 08/24/17 08/24/17 08/24/17 08/25/17 08/25/17 08/25/17 07:00 15:00 23:00 07:00 15:00 23:00 Intake Total 400 ml 1380 ml 100 ml Output Total 300 ml Balance 100 ml 1380 ml 100 ml Intake Oral 480 ml 100 ml IV Total 400 ml 900 ml Output Urine Total 300 ml # Voids 4 2 # Bowel Movements 1 Result Diagram: 08/25/17 0450 08/25/17 0450 Imaging Last Impressions Chest X-Ray 08/25/17 0000 Signed Impressions: Service Date/Time: Friday, August 25, 2017 10:51 - CONCLUSION: The central line appears to be positioned overlying the right atrium. Recommend retraction approximately 5 cm for optimal positioning. No evidence of acute cardiopulmonary disease. Josefina Palomino MD Lumbar Puncture Fluoroscopy 08/23/17 0600 Signed Impressions: Service Date/Time: Wednesday, August 23, 2017 10:11 - CONCLUSION: Uncomplicated fluoroscopically guided lumbar puncture with pressures as above. Clint Ojeda MD Brain MRI 08/22/17 1259 Signed Impressions: Service Date/Time: July 14:55 - CONCLUSION: 1. There is a 3 mm rounded focus of abnormal signal involving the right cerebellar hemisphere. This is a new finding from the prior exam and is worrisome for a tiny intraparenchymal metastasis. 2. Atrophy. Fernando Toribio Jr., MD Objective Remarks GENERAL: in NAD sitting in chair. CARDIOVASCULAR: Regular rate and rhythm without murmurs, gallops, or rubs. RESPIRATORY: Breath sounds equal bilaterally. No accessory muscle use. GASTROINTESTINAL: Abdomen soft, non-tender, nondistended. MUSCULOSKELETAL: No cyanosis, or edema. BACK: Nontender without obvious deformity. No CVA tenderness. NEURO strength and sensation grossly intact. Coordination is intact. Medications and IVs Current Medications Morphine Sulfate (Morphine Inj) 5 mg ONCE ONCE IV PUSH Last administered on at 13:25; Start 08/22/17 at 13:00; Stop 08/22/17 at 13:06; Status DC Prochlorperazine Edisylate (Compazine Inj) 10 mg ONCE ONCE IV PUSH Last administered on 08/22/17at 13:24; Start 08/22/17 at 13:00; Stop 08/22/17 at 13:06 ; Status DC Lorazepam (Ativan Inj) 1 mg ONCE ONCE IV PUSH Last administered on 08/22/17at 14:35; Start 08/22/17 at 14:30; Stop 08/22/17 at 14:31; Status DC Gadodiamide (Omniscan Pf Inj) 14 ml STK-MED ONCE IVCONTRAST Last administered on 08/22/17at 12:24; Start 08/22/17 at 12:24; Stop 08/22/17 at 15:10; Status DC Sodium Chloride 1,000 ml @ 75 mls/hr [id number] IV Last administered on at 11:42; Start 08/22/17 at 15:42 Sodium Chloride (NS Flush) 2 ml UNSCH PRN IV FLUSH FLUSH AFTER USING IV ACCESS ; Start 08/22/17 at 15:45 Sodium Chloride (NS Flush) 2 ml BID IV FLUSH Last administered on 08/24/17at 20: 31; Start 08/22/17 at 21:00 Acetaminophen (Tylenol) 650 mg Q4H PRN PO TEMP > 100.4; Start 08/22/17 at 15:45 Ondansetron HCl (Zofran Inj) 4 mg Q6H PRN IVP NAUSEA OR VOMITING; Start at 15:45; Stop 08/22/17 at 19:25; Status DC Naloxone HCl (Narcan Inj) 0.4 mg UNSCH PRN IV PUSH SEE LABEL COMMENTS; Start at 15:45 Senna/Docusate Sodium (Delphine-Colace) 1 tab BID PO Last administered on at 08:44; Start 08/22/17 at 21:00; Stop 08/24/17 at 12:00; Status DC Magnesium Hydroxide (Milk Of Magnesia Liq) 30 ml Q12H PRN PO Mild constipation ; Start 08/22/17 at 15:45 Sennosides (Senokot) 17.2 mg Q12H PRN PO Moderate constipation; Start 08/22/17 at 15:45 Bisacodyl (Dulcolax Supp) 10 mg DAILY PRN RECTAL SEVERE CONSITIPATION; Start at 15:45 Lactulose (Lactulose Liq) 30 ml DAILY PRN PO SEVERE CONSITIPATION Last administered on 08/23/17at 15:09; Start 08/22/17 at 15:45 Oxycodone/ Acetaminophen (Percocet 10-325 Mg) 1 tab Q4H PRN PO PAIN SCALE 6 TO 10; Start 08/22/17 at 15:45; Stop 08/22/17 at 17:41; Status DC Oxycodone/ Acetaminophen (Percocet 7.5-325 Mg) 1 tab Q4H PRN PO PAIN SCALE 3 TO 5; Start 08/22/17 at 15:45; Stop 08/22/17 at 17:41; Status DC Hydromorphone HCl (Dilaudid Pf Inj) 1 mg Q4H PRN IV PUSH BREAKTHROUGH PAIN; Start 08/22/17 at 15:45; Stop 08/23/17 at 14:03; Status DC Alprazolam (Xanax) 0.25 mg Q8H PRN PO anxiety Last administered on 08/23/17at 06 :46; Start 08/22/17 at 16:00; Stop 08/23/17 at 12:16; Status DC Enalapril Maleate (Vasotec) 5 mg DAILY PO Last administered on 08/24/17at 08:44 ; Start 08/23/17 at 09:00 Pantoprazole Sodium (Protonix) 40 mg HS PO Last administered on 08/22/17at 20:41 ; Start 08/22/17 at 21:00; Stop 08/23/17 at 09:36; Status DC Morphine Sulfate (Morphine Inj) 4 mg ONCE ONCE IV PUSH Last administered on at 17:53; Start 08/22/17 at 16:45; Stop 08/22/17 at 16:46; Status DC Prochlorperazine Edisylate (Compazine Inj) 10 mg ONCE ONCE IV PUSH Last administered on 08/22/17at 17:53; Start 08/22/17 at 16:45; Stop 08/22/17 at 16:46 ; Status DC Prednisone (Deltasone) 20 mg DAILY PO Last administered on 08/23/17at 08:21; Start 08/22/17 at 18:00; Stop 08/23/17 at 18:50; Status DC Albuterol Sulfate (Albuterol Neb) 2.5 mg QID NEB INH Last administered on 08/25at 08:40; Start 08/22/17 at 20:00 Acetaminophen/ Hydrocodone Bitart ([place] 10-325 Mg) 1 tab Q4H PRN PO PAIN SCALE 1 TO 5 Last administered on 08/25/17 06:09; Start 08/22/17 at 17:45 Prochlorperazine Edisylate (Compazine Inj) 10 mg Q6H PRN IV PUSH NAUSEA OR VOMITING Last administered on 08/24/17at 18:21; Start 08/22/17 at 19:30 Polyethylene Glycol (Miralax) 17 gm DAILY PO Last administered on 08/24/17at 08: 44; Start 08/23/17 at 09:00 Magnesium Hydroxide (Milk Of Magnesia Liq) 30 ml DAILY PRN PO CONSTIPATION; Start 08/22/17 at 19:30; Status Cancel Senna/Docusate Sodium (Delphine-Colace) 1 tab DAILY PO ; Start 08/23/17 at 09:00 Enalaprilat (Vasotec Inj) 1.25 mg Q6H PRN IV PUSH SBP>160, DBP>90 Last administered on 08/23/17at 06:46; Start 08/22/17 at 20:15 Heparin Sodium (Porcine) (Heparin Inj) 5,000 units Q12HR SQ Last administered on 08/24/17at 20:33; Start 08/22/17 at 21:00 Pantoprazole Sodium (Protonix Inj) 40 mg Q12HR IV PUSH Last administered on at 10:03; Start 08/23/17 at 09:45 Alprazolam (Xanax) 0.5 mg Q8H PRN PO ANXIETY Last administered on 08/24/17at 20: 32; Start 08/23/17 at 12:30 Morphine Sulfate (Morphine Inj) 4 mg Q3H PRN IV PUSH pain6-8 Last administered on 08/25/17at 10:21; Start 08/23/17 at 14:15 Morphine Sulfate (Morphine Inj) 6 mg Q3H PRN IV PUSH pain9-10 Last administered on 08/24/17at 08:52; Start 08/23/17 at 14:15 Morphine Sulfate (Morphine Inj) 4 mg STAT ONCE IV PUSH Last administered on at 14:53; Start 08/23/17 at 14:08; Stop 08/23/17 at 14:09; Status DC Morphine Sulfate (Oramorph Sr) 15 mg Q12HR PO Last administered on 08/24/17at 08 :45; Start 08/23/17 at 21:00; Stop 08/24/17 at 11:53; Status DC Methylprednisolone Sodium Succinate (SoluMEDROL INJ) 60 mg Q12HR IV PUSH Last administered on 08/25/17at 10:03; Start 08/23/17 at 21:00 Morphine Sulfate (Oramorph Sr) 30 mg Q12HR PO Last administered on 08/24/17at 20 :32; Start 08/24/17 at 21:00; Stop 08/25/17 at 10:38; Status DC Fentanyl (Duragesic 25 Mcg Patch.72 Hr) 1 patch Q3D T-DERMAL ; Start 08/25/17 at 11:00 Miscellaneous Information 1 Q3D T-DERMAL ; Start 08/28/17 at 11:00 A/P Assessment and Plan This is a 62-year-old female who is currently being treated for adenocarcinoma of the lungs who presented with ataxia and dysphagia Ataxia and dysphagia -EGD done today which showed the Araujo's esophagitis and gastritis status post biopsies taken but no strictures noted. Per GI patient can eat and recommend Protonix. Per speech therapist recommend soft nectar consistency and no straw. 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 Pending cytology. Culture so far negative. Neurologist also consulted and stated that if cytology is negative with repeat LP. -Infectious disease consulted and pending workup. Per infectious disease unlikely infectious. -Patient was started on steroids. -Symptoms seems to worsen. Patient now coughing with soft diet and became hypoxic. We'll need to do another swallow evaluation. Nothing by mouth for now. Acute respiratory failure with hypoxia. -Concerning for aspiration pneumonia. Chest x-ray reviewed showed no cardiopulmonary process. Repeating swallow evaluation. -Start patient on Levaquin and Flagyl. Patient is allergic to amoxicillin. -Consult [facility]. -Continue to supplement with oxygen as needed. Adenocarcinoma of the lungs - per oncologist 08/01 treated with Nivolumab s/p Treatment with carboplatin on Alimta. + Consolidative radiation therapy to the chest x35 treatments -Brain MRI shows 3mm rounded focus of abnormal signal involving the right cerebellar hemisphere. New finding worrisome for intraparenchymal metastasis. Pt didn't tolerate percocets due to severe nausea. Patient is on IV Dilaudid the managed by oncologist. -LP fluid was clear with opening pressure of 18. cell count shows elevated protein, glucose less than one and WBC >100k concerned for meningeal carcinomatosis. Cultures so far negative. Pending cytology. -Management per her oncologist. Acute on chronic pain -Secondary to metastatic disease. Oncologist is managing pain. At the moment unable to take oral intake patient will be put on fentanyl patch. Hypertension -Improved. Continue home medication. Anxiety disorder -Continue home medication. DVT proph: heparin SQ Discharge Planning Patient is deteriorating. Symptoms are worsening. She is DO NOT RESUSCITATE now. Oncologist is following. Katrina Connell MD Aug 25, 2017 11:16
--- NOTE | 2017-08-25 12:14 | HHI.PR ---
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 Subjective Subjective Comments nausea and vomiting when I came in Active Medications Current Medications Medications (Trade) Dose Ordered Sig/Constance Route Start Time Stop Time Status Last Admin Sodium Chloride 1,000 ml @ 75 mls/hr [id number] IV 08/22/17 15:42 08/24/17 11:42 (NS Flush) 2 ml UNSCH PRN IV FLUSH 08/22/17 15:45 (NS Flush) 2 ml BID IV FLUSH 08/22/17 21:00 08/24/17 20:31 (Tylenol) 650 mg Q4H PRN PO 08/22/17 15:45 (Narcan Inj) 0.4 mg UNSCH PRN IV PUSH 08/22/17 15:45 (Milk Of Magnesia Liq) 30 ml Q12H PRN PO 08/22/17 15:45 (Senokot) 17.2 mg Q12H PRN PO 08/22/17 15:45 (Dulcolax Supp) 10 mg DAILY PRN RECTAL 08/22/17 15:45 (Lactulose Liq) 30 ml DAILY PRN PO 08/22/17 15:45 08/23/17 15:09 (Vasotec) 5 mg DAILY PO 08/23/17 09:00 08/24/17 08:44 (Albuterol Neb) 2.5 mg QID NEB INH 08/22/17 20:00 08/25/17 11:37 ([place] 10-325 Mg) 1 tab Q4H PRN PO 08/22/17 17:45 08/25/17 06:09 (Compazine Inj) 10 mg Q6H PRN IV PUSH 08/22/17 19:30 08/24/17 18:21 (Miralax) 17 gm DAILY PO 08/23/17 09:00 08/24/17 08:44 (Delphine-Colace) 1 tab DAILY PO 08/23/17 09:00 (Vasotec Inj) 1.25 mg Q6H PRN IV PUSH 08/22/17 20:15 08/23/17 06:46 (Heparin Inj) 5,000 units Q12HR SQ 08/22/17 21:00 08/24/17 20:33 (Protonix Inj) 40 mg Q12HR IV PUSH 08/23/17 09:45 08/25/17 10:03 (Xanax) 0.5 mg Q8H PRN PO 08/23/17 12:30 08/24/17 20:32 (Morphine Inj) 4 mg Q3H PRN IV PUSH 08/23/17 14:15 08/25/17 10:21 (Morphine Inj) 6 mg Q3H PRN IV PUSH 08/23/17 14:15 08/24/17 08:52 (SoluMEDROL INJ) 60 mg Q12HR IV PUSH 08/23/17 21:00 08/25/17 10:03 (Duragesic 25 Mcg Patch.72 Hr) 1 patch Q3D T-DERMAL 08/25/17 11:00 Miscellaneous Information 1 Q3D T-DERMAL 08/28/17 11:00 Levofloxacin/ Dextrose 50 ml @ 100 mls/hr Q24H IV 08/26/17 13:00 Metronidazole 100 ml @ 100 mls/hr Q8H IV 08/25/17 12:00 Levofloxacin/ Dextrose 100 ml @ 100 mls/hr ONCE ONCE IV 08/25/17 13:00 08/25/17 13:59 Allergies Allergies Coded Allergies amoxicillin (Unverified Allergy, Severe, 08/22/17) ondansetron (Verified Adverse Reaction, Severe, Nausea/Vomiting, 08/22/17) oxycodone (Verified Adverse Reaction, Severe, Nausea/Vomiting, 08/22/17) Exam I&O / VS Vital Signs Date Time Temp Pulse Resp B/P (MAP) Pulse Ox O2 Delivery O2 Flow Rate FiO2 08/25/17 08:42 84 Nasal Cannula 3.00 08/25/17 08:18 98.9 96 14 149/89 (109) 90 08/25/17 04:00 98.2 96 16 166/94 (118) 91 08/25/17 00:00 89 08/25/17 00:00 98.5 89 16 122/75 (91) 08/24/17 20:36 88 21 08/24/17 20:00 98.5 116 16 166/90 (115) 88 08/24/17 20:00 116 08/24/17 19:40 86 08/24/17 18:12 99.0 117 16 164/89 (114) 91 Objective Micro and Labs Laboratory Tests Test 1/28/18 04:50 White Blood Count 12.5 Red Blood Count 3.19 Hemoglobin 10.5 Hematocrit 31.6 Mean Corpuscular Volume 98.9 Mean Corpuscular Hemoglobin 32.8 Mean Corpuscular Hemoglobin Concent 33.1 Red Cell Distribution Width 16.5 Platelet Count 219 Mean Platelet Volume 7.5 Neutrophils (%) (Auto) 91.0 Lymphocytes (%) (Auto) 5.2 Monocytes (%) (Auto) 3.7 Eosinophils (%) (Auto) 0.0 Basophils (%) (Auto) 0.1 Neutrophils # (Auto) 11.4 Lymphocytes # (Auto) 0.6 Monocytes # (Auto) 0.5 Eosinophils # (Auto) 0.0 Basophils # (Auto) 0.0 CBC Comment DIFF FINAL Differential Comment Blood Urea Nitrogen 27 Creatinine 1.22 Random Glucose 134 Calcium Level 9.2 Sodium Level 142 Potassium Level 3.8 Chloride Level 109 Carbon Dioxide Level 24.6 Anion Gap 8 Estimat Glomerular Filtration Rate 45 Date/Time Source Procedure Growth Status 08/24/17 09:11 Cerebral Spinal Fluid Lumbar Puncture Acid Fast Stain Pending Received 08/24/17 09:11 Cerebral Spinal Fluid Lumbar Puncture Mycobacterial Culture Pending Received Tania Douglas MD Aug 25, 2017 12:14
[2017-08-25] MEDS ORDERED: LEVOFLOXACIN 500 MG PREMIX INJ 100 ML IV ONE (13:00)
[2017-08-25] MEDS: metroNIDAZOLE 500 MG INJ 100 ML IV SCH ×2 (13:08→21:11)
[2017-08-25] MEDS: ENALAPRILAT 1.25 MG/ML VIAL IV PUSH PRN (13:08)
[2017-08-25] MEDS: HEPARIN SODIUM - SQ 10,000 UNITS/ML VIAL SQ SCH ×2 (13:10→21:27)
[2017-08-25] MEDS: SODIUM CHLOR 0.9% 1000 ML INJ 1,000 ML IV SCH ×2 (13:22→23:42)
[2017-08-25] MEDS: SODIUM CHLORIDE 0.9% FLUSH 10 ML FLUSH IV FLUSH SCH ×2 (13:34→21:25)
--- NOTE | 2017-08-25 19:18 | MB ---
cc: REGINO POWERS DATE OF CONSULTATION 08/25/[address] Katrina Connell REASON FOR CONSULTATION Possible aspiration. HISTORY OF PRESENT ILLNESS Ms. 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 She has required a window placement. The patient has received chemotherapy with Alimta, carbo and Avastin with minimal residual disease. Then she received immunotherapy and she came to the hospital with generalized weakness, ataxia and difficulty swallowing. The patient had a spinal tap done which shows glucose of 1. The patient was seen by Dr. Srini Quintanilla who considered possible meningitis. No malignant cells were seen in the fluid. The patient's sister is at the bedside and she has opted for hospice. Hospice is evaluating her. She has mild congestion. Complains of discoloration of the feet. She has no fever. No cough or sputum production. PAST MEDICAL HISTORY Significant for: 1. History of progressive non-small cell carcinoma of the lung status post chemotherapy now on immunotherapy. 2. History of pericardial window placement status post radiation to the chest. MEDICATIONS She is currently takin. Levaquin IV. 2. Flagyl I.V. 3. Fentanyl patch. 4. Morphine for pain. 5. Enalapril 5 mg. ALLERGIES AMOXICILLIN AND OXYCODONE. SOCIAL HISTORY She is . Worked as a teacher. She has history of smoking and alcohol in the past. FAMILY HISTORY She has three children. REVIEW OF SYSTEMS She has difficulty swallowing. No fever or chills. Has aches all over. No DVT or pulmonary embolism. PHYSICAL EXAMINATION GENERAL: The patient is an elderly female, mild short of breath. VITAL SIGNS: Blood pressure 180/95, heart rate 119, respiration 18, temperature 97.7. HEENT: Pupils are equal and reactive to light. Oral mucosa and nasal mucosa normal. NECK: Supple. JVP not raised. CHEST: She has a few rhonchi. CARDIOVASCULAR: S1-S2 normal. ABDOMEN: Soft. Nondistended. Bowel sounds are present. EXTREMITIES: No edema. SNUFF GRINDER AND SCREENER: Alert and oriented times three. No focal deficits. LABORATORY FINDINGS Her WBC count is 12.5, hemoglobin 10.5, hematocrit 31.6, MCV 98, platelet count 219. Sodium 142, potassium 3.8, chloride 109, CO2 24, BUN 27, creatinine 1.22. IMAGING Chest x-ray shows no acute infiltrate. IMPRESSION 1. Advanced non-small cell carcinoma of the lung. 2. 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 3. History of nicotine use and alcohol use. 4. Dysphagia. 5. Ataxia. PLAN I discussed with the patient and her sister, she is being evaluated with Hospice and is planning to go for the hospice service. In the meantime continue present medications, pain control. Supplement her oxygen. Further treatment will depend on the course in the hospital. Thank you Dr. Katrina Connell for this consultation. MD EFREN Rubio/OLIVE /6:16 PM /7:00 PM JEY
[2017-08-25] MEDS: LORazepam 2 MG/ML VIAL IV PUSH PRN (21:17)
[2017-08-26] VITALS (15 sets, daily range): BP systolic 171–180; BP diastolic 94–111; PULSE 104–135; RESP 18–20; TEMP 97.8–98.5; O2SAT 92–97
[2017-08-26] MEDS: LORazepam 2 MG/ML VIAL IV PUSH PRN ×4 (01:13→14:35)
[2017-08-26] MEDS: SODIUM CHLORIDE 0.9% FLUSH 10 ML FLUSH IV FLUSH PRN ×2 (01:14→05:24)
[2017-08-26] MEDS: MORPHINE SULFATE 2 MG/ML INJ IV PUSH PRN ×3 (01:35→12:23)
[2017-08-26] MEDS: metroNIDAZOLE 500 MG INJ 100 ML IV SCH ×2 (03:25→12:00)
[2017-08-26] MEDS: SODIUM CHLOR 0.9% 1000 ML INJ 1,000 ML IV SCH (06:59)
[2017-08-26] MEDS: ENALAPRILAT 1.25 MG/ML VIAL IV PUSH PRN (07:38)
[2017-08-26] MEDS: PANTOPRAZOLE SODIUM 40 MG VIAL IV PUSH SCH (07:38)
[2017-08-26] MEDS: HEPARIN SODIUM - SQ 10,000 UNITS/ML VIAL SQ SCH (07:39)
--- NOTE | 2017-08-26 08:22 | HHI.PR ---
Subjective Remarks Poor prognosis,. In bed family at bedside. No events overnight. Family decided for Hospice. Objective Vitals Vital Signs Date Time Temp Pulse Resp B/P (MAP) Pulse Ox O2 Delivery O2 Flow Rate FiO2 08/26/17 08:00 115 08/26/17 07:40 98.4 124 20 180/111 (134) 97 08/26/17 07:11 93 Nasal Cannula 6.00 08/26/17 07:03 115 08/26/17 06:03 119 08/26/17 05:12 135 08/26/17 04:11 18 08/26/17 04:02 111 08/26/17 03:25 118 08/26/17 03:20 97.8 130 18 174/96 (122) 95 08/26/17 03:01 133 08/26/17 02:06 104 08/26/17 01:06 116 08/26/17 00:30 98.5 109 18 171/94 (119) 92 08/26/17 00:01 105 08/25/17 23:05 120 08/25/17 22:04 117 08/25/17 21:03 118 08/25/17 20:56 98.6 118 18 162/98 (119) 95 08/25/17 20:53 110 08/25/17 20:08 125 08/25/17 19:04 128 08/25/17 19:03 183/101 (128) 08/25/17 17:06 97.7 119 14 183/95 (124) 90 08/25/17 15:00 113 08/25/17 13:02 97.3 110 12 166/90 (115) 08/25/17 08:42 84 Nasal Cannula 3.00 I/O 08/25/17 08/25/17 08/25/17 08/26/17 08/26/17 08/26/17 07:00 15:00 23:00 07:00 15:00 23:00 Intake Total 100 ml 2030 ml 1000 ml Output Total 350 ml Balance 100 ml 2030 ml 650 ml Intake Oral 100 ml 1080 ml 0 ml IV Total 950 ml 1000 ml Output Urine Total 350 ml # Voids 2 5 2 # Bowel Movements 0 Result Diagram: 08/25/17 0450 08/25/17 0450 Imaging Last Impressions Chest X-Ray 08/25/17 0000 Signed Impressions: Service Date/Time: Friday, August 25, 2017 10:51 - CONCLUSION: The central line appears to be positioned overlying the right atrium. Recommend retraction approximately 5 cm for optimal positioning. No evidence of acute cardiopulmonary disease. Josefina Palomino MD Lumbar Puncture Fluoroscopy 08/23/17 0600 Signed Impressions: Service Date/Time: Wednesday, August 23, 2017 10:11 - CONCLUSION: Uncomplicated fluoroscopically guided lumbar puncture with pressures as above. Clint Ojeda MD Brain MRI 08/22/17 1259 Signed Impressions: Service Date/Time: July 14:55 - CONCLUSION: 1. There is a 3 mm rounded focus of abnormal signal involving the right cerebellar hemisphere. This is a new finding from the prior exam and is worrisome for a tiny intraparenchymal metastasis. 2. Atrophy. Fernando Toribio Jr., MD Objective Remarks GENERAL: In NAD sitting in chair. CARDIOVASCULAR: Regular rate and rhythm without murmurs, gallops, or rubs. RESPIRATORY: Breath sounds equal bilaterally. No accessory muscle use. GASTROINTESTINAL: Abdomen soft, non-tender, nondistended. MUSCULOSKELETAL: No cyanosis, or edema. BACK: Nontender without obvious deformity. No CVA tenderness. NEURO Strength and sensation grossly intact. Coordination is intact. A/P Assessment and Plan This is a 62-year-old female who is currently being treated for adenocarcinoma of the lungs who presented with ataxia and dysphagia Ataxia and dysphagia -EGD done today which showed the Araujo's esophagitis and gastritis status post biopsies taken but no strictures noted. Per GI patient can eat and recommend Protonix. Per speech therapist recommend soft nectar consistency and no straw. 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 Pending cytology. Culture so far negative. Neurologist also consulted and stated that if cytology is negative with repeat LP. -Infectious disease consulted and pending workup. Per infectious disease unlikely infectious. -Patient was started on steroids. -Symptoms seems to worsen. Patient now coughing with soft diet and became hypoxic. We'll need to do another swallow evaluation. Nothing by mouth for now. Acute respiratory failure with hypoxia. -Concerning for aspiration pneumonia. Chest x-ray reviewed showed no cardiopulmonary process. Repeating swallow evaluation. -Start patient on Levaquin and Flagyl. Patient is allergic to amoxicillin. -Consult nurse ldr. -Continue to supplement with oxygen as needed. Adenocarcinoma of the lungs - per oncologist / treated with Nivolumab s/p Treatment with carboplatin on Alimta. + Consolidative radiation therapy to the chest x35 treatments -Brain MRI shows 3mm rounded focus of abnormal signal involving the right cerebellar hemisphere. New finding worrisome for intraparenchymal metastasis. Pt didn't tolerate percocets due to severe nausea. Patient is on IV Dilaudid the managed by oncologist. -LP fluid was clear with opening pressure of 18. cell count shows elevated protein, glucose less than one and WBC >100k concerned for meningeal carcinomatosis. Cultures so far negative. Pending cytology. -Management per her oncologist. Acute on chronic pain -Secondary to metastatic disease. Oncologist is managing pain. At the moment unable to take oral intake patient will be put on fentanyl patch. Hypertension -Improved. Continue home medication. Anxiety disorder -Continue home medication. DVT proph: heparin SQ Discharge Planning Patient is deteriorating. Symptoms are worsening. She is DO NOT RESUSCITATE now. Oncologist is following. Family decided for hospice . DC to hospice /home today Rosanna Thomas MD Aug 26, 2017 08:22
[2017-08-26] MEDS: POLYETHYLENE GLYCOL 17 GM PKG PO SCH (09:00)
[2017-08-26] MEDS: SODIUM CHLORIDE 0.9% FLUSH 10 ML FLUSH IV FLUSH SCH (09:00)
[2017-08-26] MEDS: ENALAPRIL MALEATE 5 MG TAB PO SCH (09:00)
[2017-08-26] MEDS: DOCUSATE SODIUM 50 MG/SENNA 8.6 MG TAB PO SCH (09:00)
--- NOTE | 2017-08-26 11:23 | PD.ONC.PN ---
Subjective Subjective Remarks patient is rapidly deteriorating with decreasing ability to communicate, swallow , or balance self. Objective Data Date Time Temp Pulse Resp B/P (MAP) Pulse Ox O2 Delivery O2 Flow Rate FiO2 08/26/17 08:00 115 08/26/17 07:40 98.4 124 20 180/111 (134) 97 08/26/17 07:11 93 Nasal Cannula 6.00 08/26/17 07:03 115 08/26/17 06:03 119 08/26/17 05:12 135 08/26/17 04:11 18 08/26/17 04:02 111 08/26/17 03:25 118 08/26/17 03:20 97.8 130 18 174/96 (122) 95 08/26/17 03:01 133 08/26/17 02:06 104 08/26/17 01:06 116 08/26/17 00:30 98.5 109 18 171/94 (119) 92 08/26/17 00:01 105 08/25/17 23:05 120 08/25/17 22:04 117 08/25/17 21:03 118 08/25/17 20:56 98.6 118 18 162/98 (119) 95 08/25/17 20:53 110 08/25/17 20:08 125 08/25/17 19:04 128 08/25/17 19:03 183/101 (128) 08/25/17 17:06 97.7 119 14 183/95 (124) 90 08/25/17 15:00 113 08/25/17 13:02 97.3 110 12 166/90 (115) 08/26/17 08/26/17 08/26/17 07:00 15:00 23:00 Intake Total 1000 ml Output Total 350 ml Balance 650 ml Result Diagram: 08/25/17 0450 08/25/17 0450 Culture Results Microbiology Date/Time Source Procedure Growth Status 08/24/17 09:11 Cerebral Spinal Fluid Lumbar Puncture Acid Fast Stain Pending Received 08/24/17 09:11 Cerebral Spinal Fluid Lumbar Puncture Mycobacterial Culture Pending Received Administered Medications Medications (Trade) Dose Ordered Sig/Constance Route PRN Reason Start Time Stop Time Status Last Admin Dose Admin Sodium Chloride 1,000 ml @ 75 mls/hr [id number] IV 08/22/17 15:42 08/26/17 06:59 Sodium Chloride (NS Flush) 2 ml UNSCH PRN IV FLUSH FLUSH AFTER USING IV ACCESS 08/22/17 15:45 08/26/17 05:24 Sodium Chloride (NS Flush) 2 ml BID IV FLUSH 08/22/17 21:00 08/25/17 21:25 Lactulose (Lactulose Liq) 30 ml DAILY PRN PO SEVERE CONSITIPATION 08/22/17 15:45 08/23/17 15:09 Enalapril Maleate (Vasotec) 5 mg DAILY PO 08/23/17 09:00 08/24/17 08:44 Acetaminophen/ Hydrocodone Bitart ([place] 10-325 Mg) 1 tab Q4H PRN PO PAIN SCALE 1 TO 5 08/22/17 17:45 08/25/17 06:09 Prochlorperazine Edisylate (Compazine Inj) 10 mg Q6H PRN IV PUSH NAUSEA OR VOMITING 08/22/17 19:30 08/24/17 18:21 Polyethylene Glycol (Miralax) 17 gm DAILY PO 08/23/17 09:00 08/24/17 08:44 Enalaprilat (Vasotec Inj) 1.25 mg Q6H PRN IV PUSH SBP>160, DBP>90 08/22/17 20:15 08/26/17 07:38 Heparin Sodium (Porcine) (Heparin Inj) 5,000 units Q12HR SQ 08/22/17 21:00 08/26/17 07:39 Pantoprazole Sodium (Protonix Inj) 40 mg Q12HR IV PUSH 08/23/17 09:45 08/26/17 07:38 Alprazolam (Xanax) 0.5 mg Q8H PRN PO ANXIETY 08/23/17 12:30 08/24/17 20:32 Morphine Sulfate (Morphine Inj) 4 mg Q3H PRN IV PUSH pain6-8 08/23/17 14:15 08/26/17 07:35 Morphine Sulfate (Morphine Inj) 6 mg Q3H PRN IV PUSH pain9-10 08/23/17 14:15 08/24/17 08:52 Fentanyl (Duragesic 25 Mcg Patch.72 Hr) 1 patch Q3D T-DERMAL 08/25/17 11:00 08/25/17 13:09 Metronidazole 100 ml @ 100 mls/hr Q8H IV 08/25/17 12:00 08/26/17 03:25 Lorazepam (Ativan Inj) 0.5 mg Q4H PRN IV PUSH anxiety 08/25/17 20:30 08/26/17 09:41 Objective Remarks GENERAL: very ill and dying. SKIN: Warm and dry. HEAD: Normocephalic. EYES: No scleral icterus. No injection or drainage. NECK: Supple, trachea midline. No JVD or lymphadenopathy. LYMPHATIC: enlarged left surpraclavicular nodes. . CARDIOVASCULAR: Regular rate and rhythm without murmurs. RESPIRATORY: Breath sounds equal bilaterally. No accessory muscle use. GASTROINTESTINAL: Abdomen soft, non-tender, nondistended. EXTREMITIES: No cyanosis, or edema. MUSCULOSKELETAL: poor muscle tone. NEUROLOGICAL: rapidly deteriorating cognitive function. Assessment/Plan Assessment 1: she is dying and there is no reversible element. Met with hospice with family this am and she will go home today. Suspect only days to a week remaining and not planning on additional studies in light of rapid and irreversible deterioration. Would use duragesic patch as oral intake not good and will worsen. Srini Quintanilla MD Aug 26, 2017 11:23
[2017-08-26] MEDS ORDERED: LEVOFLOXACIN 250 MG PREMIX INJ 50 ML IV SCH (13:00)
--- NOTE | 2017-08-26 13:19 | HHI.DS ---
Discharge Summary Admission Date Aug 22, 2017 at 16:45 Discharge Date: Aug 26, 2017 Admitting Diagnosis new onset diffuse pain, right tongue deviation, stage IV adenocarcin (1) Dyspnea ICD Code: R06.00 - Dyspnea, unspecified Status: Acute (2) Tobacco abuse ICD Code: Z72.0 - Tobacco use Status: Chronic (3) s/p pericardial window Status: Acute (4) Acute respiratory failure with hypoxia ICD Code: J96.01 - Acute respiratory failure with hypoxia Status: Acute (5) Pericardial effusion ICD Code: I31.3 - Pericardial effusion (noninflammatory) Status: Acute (6) Dysphagia ICD Code: R13.10 - Dysphagia, unspecified Status: Acute (7) Acute kidney injury ICD Code: N17.9 - Acute kidney failure, unspecified Status: Acute (8) Lung mass ICD Code: R91.8 - Other nonspecific abnormal finding of lung field Status: Acute Procedures none Brief History - From Admission Patient is a 62-year-old female with past medical history adenocarcinoma of the lungs, hypertension, chronic pain, anxiety, GERD was sent from her oncologist's office for admission and further evaluation. Patient states she's been having difficulty talking and not feeling well 2 weeks after radiation therapy which were 2 weeks after Thanksgiving. She also states that she has been having worsening shortness of breath and trouble swallowing both solids and liquids but mainly liquids. On Saturday she felt dizzy and on Saturday she started experiencing double vision. She experiences pain everywhere which she rates at 9 out of 10 in however today after getting pain medication the pain has come down to 7 out of 10. Oxycodone gives her dry heaves. Her shortness of breath comes and goes however it is worse with ambulation. She has been using her home oxygen occasionally. She has been having epigastric pain with some chest pain with the driving heaving. Currently she is chest pain-free. She admits to constipation. She denies any fevers or chills, any burning with urination. She was doing okay with using her walker as far as ambulation however today she had to use a wheelchair due to severe weakness. Pt is known to Dr. Quintanilla and Dr. Mccray CBC/BMP: 08/25/17 0450 08/25/17 0450 Significant Findings Laboratory Tests Test 08/24/17 09:11 08/25/17 04:50 White Blood Count 12.5 TH/MM3 (4.0-11.0) Red Blood Count 3.19 MIL/MM3 (4.00-5.30) Hemoglobin 10.5 GM/DL (11.6-15.3) Hematocrit 31.6 % (35.0-46.0) Neutrophils (%) (Auto) 91.0 % (16.0-70.0) Lymphocytes (%) (Auto) 5.2 % (9.0-44.0) Neutrophils # (Auto) 11.4 TH/MM3 (1.8-7.7) Lymphocytes # (Auto) 0.6 TH/MM3 (1.0-4.8) Blood Urea Nitrogen 27 MG/DL (7-18) Creatinine 1.22 MG/DL (0.50-1.00) Random Glucose 134 MG/DL (74-106) Chloride Level 109 MEQ/L (98-107) Estimat Glomerular Filtration Rate 45 ML/MIN (>89) Imaging Last Impressions Chest X-Ray 08/25/17 0000 Signed Impressions: Service Date/Time: Friday, August 25, 2017 10:51 - CONCLUSION: The central line appears to be positioned overlying the right atrium. Recommend retraction approximately 5 cm for optimal positioning. No evidence of acute cardiopulmonary disease. Josefina Palomino MD Lumbar Puncture Fluoroscopy 08/23/17 0600 Signed Impressions: Service Date/Time: Wednesday, August 23, 2017 10:11 - CONCLUSION: Uncomplicated fluoroscopically guided lumbar puncture with pressures as above. Clint Ojeda MD Brain MRI 08/22/17 1259 Signed Impressions: Service Date/Time: July 14:55 - CONCLUSION: 1. There is a 3 mm rounded focus of abnormal signal involving the right cerebellar hemisphere. This is a new finding from the prior exam and is worrisome for a tiny intraparenchymal metastasis. 2. Atrophy. Fernando Toribio Jr., MD PE at Discharge GENERAL: In NAD sitting in chair. CARDIOVASCULAR: Regular rate and rhythm without murmurs, gallops, or rubs. RESPIRATORY: Breath sounds equal bilaterally. No accessory muscle use. GASTROINTESTINAL: Abdomen soft, non-tender, nondistended. MUSCULOSKELETAL: No cyanosis, or edema. BACK: Nontender without obvious deformity. No CVA tenderness. NEURO Strength and sensation grossly intact. Coordination is intact. Hospital Course This is a 62-year-old female who is currently being treated for adenocarcinoma of the lungs who presented with ataxia and dysphagia Ataxia and dysphagia -EGD done today which showed the Araujo's esophagitis and gastritis status post biopsies taken but no strictures noted. Per GI patient can eat and recommend Protonix. Per speech therapist recommend soft nectar consistency and no straw. 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 Pending cytology. Culture so far negative. Neurologist also consulted and stated that if cytology is negative with repeat LP. -Infectious disease consulted and pending workup. Per infectious disease unlikely infectious. -Patient was started on steroids. -Symptoms seems to worsen. Patient now coughing with soft diet and became hypoxic. We'll need to do another swallow evaluation. Nothing by mouth for now. Acute respiratory failure with hypoxia. -Concerning for aspiration pneumonia. Chest x-ray reviewed showed no cardiopulmonary process. Repeating swallow evaluation. -Start patient on Levaquin and Flagyl. Patient is allergic to amoxicillin. -Consult automobile service station manager. -Continue to supplement with oxygen as needed. Adenocarcinoma of the lungs - per oncologist 1/ treated with Nivolumab s/p Treatment with carboplatin on Alimta. + Consolidative radiation therapy to the chest x35 treatments -Brain MRI shows 3mm rounded focus of abnormal signal involving the right cerebellar hemisphere. New finding worrisome for intraparenchymal metastasis. Pt didn't tolerate percocets due to severe nausea. Patient is on IV Dilaudid the managed by oncologist. -LP fluid was clear with opening pressure of 18. cell count shows elevated protein, glucose less than one and WBC >100k concerned for meningeal carcinomatosis. Cultures so far negative. Pending cytology. -Management per her oncologist. Acute on chronic pain -Secondary to metastatic disease. Oncologist is managing pain. At the moment unable to take oral intake patient will be put on fentanyl patch. Hypertension -Improved. Continue home medication. Anxiety disorder -Continue home medication. DVT proph: heparin SQ Discharge Planning Patient is deteriorating. Symptoms are worsening. She is DO NOT RESUSCITATE now. Oncologist is following. Family decided for hospice . DC to hospice /home today Pt Condition on Discharge: Deteriorating Discharge Disposition: Hospice/ Home Discharge Time: > 30 minutes Discharge Instructions DIET: Follow Instructions for: As Tolerated, No Restrictions Activities you can perform: Regular-No Restrictions Continued Medications: Alprazolam (Xanax) 0.25 Mg Tab 0.25 MG PO Q8H PRN for anxiety, #20 TAB 0 Refills Enalapril (Vasotec) 5 Mg Tab 5 MG PO DAILY, #30 TAB 0 Refills Hydrocodone-Acetaminophen (Hydrocodone-Acetaminophen) 7.5 Mg-325 Mg Tab 1 TAB PO Q6H PRN for PAIN for 3 Days, #9 TAB 0 Refills Oxygen tank (Oxygen tank) 1 Ea Tank 2 LITER NATALIIA.CANULA CONTINUOUS for HYPOXEMIA PREVENTION, #2 CYLINDER 0 Refills Oxygen Concentrator Portable Gaseous 2 L/min via Nasal Cannula Continuous For 99 months Pantoprazole (Pantoprazole) 40 Mg Tab 40 MG PO HS for gerd, #15 TAB 0 Refills Prednisone (Prednisone) 20 Mg Tab 20 MG PO DAILY, TAB 0 Refills Rosanna Thomas MD Aug 26, 2017 13:19
--- NOTE | 2017-08-26 14:40 | HHI.PR ---
Subjective Remarks 62 YOWF with Progressive, advanced NSCLC Has ataxia, difficulty swallowing Seen by Hospice Sister ( RN ) at [facility] Vital Signs Vital Signs Date Time Temp Pulse Resp B/P (MAP) Pulse Ox O2 Delivery O2 Flow Rate FiO2 08/26/17 08:00 115 08/26/17 07:40 98.4 124 20 180/111 (134) 97 08/26/17 07:11 93 Nasal Cannula 6.00 08/26/17 07:03 115 08/26/17 06:03 119 08/26/17 05:12 135 08/26/17 04:11 18 08/26/17 04:02 111 08/26/17 03:25 118 08/26/17 03:20 97.8 130 18 174/96 (122) 95 08/26/17 03:01 133 08/26/17 02:06 104 08/26/17 01:06 116 08/26/17 00:30 98.5 109 18 171/94 (119) 92 08/26/17 00:01 105 08/25/17 23:05 120 08/25/17 22:04 117 08/25/17 21:03 118 08/25/17 20:56 98.6 118 18 162/98 (119) 95 08/25/17 20:53 110 08/25/17 20:08 125 08/25/17 19:04 128 08/25/17 19:03 183/101 (128) 08/25/17 17:06 97.7 119 14 183/95 (124) 90 08/25/17 15:00 113 I/O 08/25/17 08/25/17 08/25/17 08/26/17 08/26/17 08/26/17 07:00 15:00 23:00 07:00 15:00 23:00 Intake Total 100 ml 2030 ml 1000 ml Output Total 350 ml Balance 100 ml 2030 ml 650 ml Intake Oral 100 ml 1080 ml 0 ml IV Total 950 ml 1000 ml Output Urine Total 350 ml # Voids 2 5 2 # Bowel Movements 0 Result Diagram: 08/25/1744908/25/170 [facility] Remarks GENERAL: MBMN WF, sob, weak SKIN: Warm and dry. HEAD: Normocephalic. EYES: No scleral icterus. No injection or drainage. NECK: Supple, trachea midline. No JVD or lymphadenopathy. CARDIOVASCULAR: Regular rate and rhythm without murmurs, gallops, or rubs. RESPIRATORY: Breath sounds equal bilaterally. No accessory muscle use. Coarse crackles GASTROINTESTINAL: Abdomen soft, non-tender, nondistended. MUSCULOSKELETAL: No cyanosis, or edema. BACK: Nontender without obvious deformity. No CVA tenderness. A/P Assessment and Plan Advanced lung ca Dysphagia, Aspiration Ataxia PLAN: Prognosis poor DC plans for home with Hospice DW pt and her sister at [facility] Howard Manning MD Aug 26, 2017 14:40
[2017-08-27 11:26] LABS: HSV 1,PCR Negative (Negative)
[2017-08-28 01:20] LABS: CSF CRYPTOCOCCUS AG CONF ND (NOT DETECTD)
[2017-08-28] MEDS ORDERED: REMOVE OLD DURAGESIC (FENTANYL) PATCH T-DERMAL SCH (11:00)
[2017-08-28 17:54] LABS: CSF CRYPTOCOCCUS ANTIGEN NOT DETECTED (NEGATIVE)
== END 2017-08-26 14:59 | disposition hospice, home (50) | DRG 54 ==
LOC: NEPE 12:23 → NEDA 16:45 → HCIN 22:05
PROVIDERS: ADMIT Hospitalist; ATTEND Hospitalist
PROC: 0DB68ZX Excision of Stomach, Via Natural or Artificial Opening Endoscopic, Diagnostic (ICD-10-PCS; 2017-08-23)
PROC: 009U3ZX Drainage of Spinal Canal, Percutaneous Approach, Diagnostic (ICD-10-PCS; 2017-08-23)
PROC: B01BZZZ Fluoroscopy of Spinal Cord (ICD-10-PCS; 2017-08-23)
PROC: 0DB38ZX Excision of Lower Esophagus, Via Natural or Artificial Opening Endoscopic, Diagnostic (ICD-10-PCS; principal; 2017-08-23 10:37)
DX: C79.49 Secondary malignant neoplasm of other parts of nervous system (principal); J96.01 Acute respiratory failure with hypoxia; N17.9 Acute kidney failure, unspecified; I31.3 Pericardial effusion (noninflammatory); R13.10 Dysphagia, unspecified; C34.90 Malignant neoplasm of unspecified part of unspecified bronchus or lung; G89.3 Neoplasm related pain (acute) (chronic); I10 Essential (primary) hypertension; K21.9 Gastro-esophageal reflux disease without esophagitis; F41.9 Anxiety disorder, unspecified; H53.2 Diplopia; R42 Dizziness and giddiness; R27.0 Ataxia, unspecified; K29.50 Unspecified chronic gastritis without bleeding; K22.70 Barrett's esophagus without dysplasia; K59.03 Drug induced constipation; T40.2X5A Adverse effect of other opioids, initial encounter; Z87.891 Personal history of nicotine dependence; Z92.21 Personal history of antineoplastic chemotherapy; Z92.3 Personal history of irradiation; Z88.0 Allergy status to penicillin; Z66 Do not resuscitate
CPT/HCPCS: 62270; 70553; 71046; 77003; 80048; 80053; 82378; 82945; 83615; 84157; 85025; 85610; 85730; 86403; 87015; 87070; 87116; 87205; 87206; 87497; 87529; 88305; 88312; 89051; 94150; 94640; 94664; 96374; 96375; A9579; C9113; J0780; J1644; J1956; J2060; J2270; J2930; J7030; J7512; J7613